=== PATIENT | female | born 1960 | race Caucasian/White ===

== ENCOUNTER → 2018-01-29 06:58 | Outpatient (CLI) | payer BC, SELFPAY ==
--- NOTE | 2018-01-29 | DI.US.S_ITS ---
PROCEDURE: US ABDOMEN COMPLETE INDICATIONS: ELEVATED LIVER ENZYMES TECHNIQUE: Real-time scanning was performed of the abdominal and retroperitoneal organs, with image documentation. COMPARISON: [facility], CT, ABDOMEN/PELVIS WITH CONTRAST, 11/24/2010, 9:41. FINDINGS: Liver: Liver is mildly enlarged in craniocaudad length of 20.2 cm, and homogeneous in echotexture diffusely mildly hyperechoic consistent with fatty infiltration. Gallbladder: The gallbladder contains several nonobstructive stones, and the gallbladder wall is normal in thickness. The gallstones measure approximately 1.1 cm in maximal dimension. There is no tenderness to sonographic palpation. Biliary ducts: Intrahepatic bile ducts are non-dilated. Extrahepatic bile duct caliber measures 5.2 mm. Normal is 6-7 mm or less in diameter, or 10 mm or less post-cholecystectomy. Pancreas: Visualized portions of the pancreas are sonographically normal. Spleen: Spleen is normal in size and homogeneous in echotexture. Kidneys: Kidneys are normal in size and echotexture. Right kidney measures 11.8 cm long; left kidney measures 10.7 cm long. No hydronephrosis or nephrolithiasis. No solid masses. There is a simple appearing 1.4 cm simple left mid renal cortical cyst Aorta: Visualized aorta is normal in caliber at less than 3 cm. Iliacs: Proximal common iliac arteries are normal in caliber at less than 2.5 cm. IVC: Intrahepatic inferior vena cava is patent. Miscellaneous: No free abdominal fluid. IMPRESSION: Fatty infiltration within the liver is mild and there is mild hepatomegaly but no mass lesion is found through the liver parenchyma and the gallbladder and bile ducts appear normal. Dictated by: Jose Aburto M.D. on 01/29/2018 at 9:07 Approved by: Jose Aburto M.D. on 01/29/2018 at 9:12
== END ==
PROVIDERS: PCP Family Medicine; Visit Provider Family Medicine
DX: R74.8 Abnormal levels of other serum enzymes (principal); K76.0 Fatty (change of) liver, not elsewhere classified
CPT/HCPCS: 76700

== ENCOUNTER 2018-05-09 15:44 | Emergency (ER) | payer OTHER, BC, SELFPAY ==
[2018-05-09 15:47] VITALS: BP 134/85; PULSE 77; RESP 16; TEMP 36.4; O2SAT 100; BMI 37.8
--- NOTE | 2018-05-09 16:23 | ED_ITS ---
HPI - Fall <Nadia Beltran PA-C - Last Filed: 05/09/18 21:59> General Chief Complaint: Fall Stated Complaint: Fall, cut on face Time Seen by Provider: 05/09/18 16:27 Source: patient Mode of arrival: ambulatory Limitations: no limitations History of Present Illness HPI Narrative: This 58-year-old female was at work when she tripped and fell over a laptop cord and cut the upper part of her nose on the edge of a plastic container. She states that she scraped her left pinky finger and bumped her left knee. She states that she did not hurt her head, no LOC, vision change, nausea or vomiting. She got up right away and has been able to walk on her knee without any problem. She thought she might need stitches due to the facial wound. She states her last tetanus was about 3 years ago. Related Data Home Medications Medication Instructions Recorded Confirmed CA PANTOTHENATE/FOLIC ACID/VIT 1 tab PO QDAY #0 02/24/12 (MULTIVITAMIN) CHOLECALCIFEROL (VITAMIN D3) 2,000 iu PO QDAY #0 02/24/12 (Vitamin D) KRILL OIL (#[facility] KRILL OIL) 500 mg PO QDAY #0 02/24/12 atorvastatin [Lipitor] 10 mg PO BEDTIME #0 02/24/12 05/09/18 clonidine HCl 0.1 mg PO QDAY #0 02/24/12 allopurinol 200 mg PO BID 05/09/18 05/09/18 hydrochlorothiazide 12.5 mg PO DAILY 05/09/18 05/09/18 lisinopril 40 mg PO DAILY 05/09/18 05/09/18 metformin 500 mg PO BID 05/09/18 05/09/18 potassium chloride 10 meq PO BID 05/09/18 05/09/18 sertraline 50 mg PO DAILY 05/09/18 05/09/18 Allergies Allergy/AdvReac Type Severity Reaction Status Date / Time Penicillins Allergy Mild RASH Unverified 08/07/17 13:11 Sulfa (Sulfonamide Allergy Mild RASH Unverified 08/07/17 13:11 Antibiotics) Review of Systems <Nadia Beltran PA-C - Last Filed: 05/09/18 21:59> Review of Systems ROS Unobtainable: All systems reviewed & are unremarkable except as noted in HPI and below Exam <SERA Smith Last Filed: 05/09/18 21:59> Narrative Exam Narrative: GENERAL APPEARANCE: Patient sitting comfortably, in no distress. HEENT: No facial or scalp hematoma, no bony abnormality palpable or visible, PERRL, EOMI, normal oropharynx, no sinus TTP NECK: Supple LUNGS: Clear to auscultation bilaterally. HEART: Rate and rhythm regular without murmur, normal S1 and S2, no S3 or S4. NEUROLOGIC: Alert and oriented, normal speech, and coordination. MUSCULOSKELETAL: Full Csp AROM, no tenderness. No tenderness over the left knee , full range of motion. DERMATOLOGIC: Over the left superior border of the nasal bridge medial to the brow line there is a 1.5 cm laceration 2 mm deep with a 1 mm gap. Inferior to this on the left distal bridge there is a 2 mm superficial laceration. There is a small abrasion with the skin barely broken on the left pinky finger Initial Vital Signs Initial Vital Signs: Vital Signs Temperature 97.5 F L 05/09/18 15:47 Pulse Rate 77 05/09/18 15:47 Respiratory Rate 16 05/09/18 15:47 Blood Pressure 134/85 05/09/18 15:47 Pulse Oximetry 100 05/09/18 15:47 <Barby Robins DO - Last Filed: 05/10/18 08:57> Initial Vital Signs Initial Vital Signs: Vital Signs Temperature 97.5 F L 05/09/18 15:47 Pulse Rate 77 05/09/18 15:47 Respiratory Rate 16 05/09/18 15:47 Blood Pressure 134/85 05/09/18 15:47 Pulse Oximetry 100 05/09/18 15:47 Procedures <SERA Smith Last Filed: 05/09/18 21:59> Laceration Repair Laceration 1: Site: face Size (cm): 1.5 Description: linear and clean Depth: simple, single layer Local Anesthetic: lidocaine 1% and with epi Amount of anesthesia used (mL): 2 Pre-repair: wound explored and deep structures intact Skin layer closed with: nylon Size (cm): 6-0 Number of sutures: 4 Technique: simple, interrupted Course <SERA Smith Last Filed: 05/09/18 21:59> Vital Signs - 8 hr 05/09/18 15:47 05/09/18 17:44 Temperature 97.5 F L Pulse Rate 77 76 Respiratory Rate 16 18 Blood Pressure 134/85 125/57 L Pulse Oximetry 100 96 <Barby Robins DO - Last Filed: 05/10/18 08:57> Vital Signs - 8 hr 05/09/18 15:47 05/09/18 17:44 Temperature 97.5 F L Pulse Rate 77 76 Respiratory Rate 16 18 Blood Pressure 134/85 125/57 L Pulse Oximetry 100 96 Discharge Plan Departure Patient Disposition: Home Clinical Impression: Facial laceration, Contusion of multiple sites Discharge Date/Time: 05/09/18 17:45 Interventions: ED Discharge Assessment Last Done: 05/09/18 17:44 Instructions: DI for Laceration Repair Activity Restrictions/Additional Instructions: Keep the wound clean and dry, you can rinse quickly if you wish. Do not immerse in water. Monitor for signs of infection such as increased redness, swelling, or draining pus, or new fever and return here or see your PCP right away if any. If the sutures get crusty, you can apply a little antibiotic ointment or Vaseline. The should be ready to remove in about 5 days, please schedule with your PCP next week for this. Prescriptions: No Action clonidine HCl 0.1 MG tablet 0.1 mg PO QDAY Qty: 0 RF: 0 atorvastatin [Lipitor] 10 MG tablet 10 mg PO BEDTIME Qty: 0 RF: 0 CA PANTOTHENATE/FOLIC ACID/VIT (MULTIVITAMIN) 1 tab PO QDAY Qty: 0 RF: 0 CHOLECALCIFEROL (VITAMIN D3) (Vitamin D) 2,000 iu PO QDAY Qty: 0 RF: 0 KRILL OIL (#[facility] KRILL OIL) 500 mg PO QDAY Qty: 0 RF: 0 metformin 500 mg tablet 500 mg PO BID RF: 0 potassium chloride 10 mEq tablet extended release 10 meq PO BID RF: 0 allopurinol 100 mg tablet 200 mg PO BID RF: 0 hydrochlorothiazide 12.5 mg capsule 12.5 mg PO DAILY RF: 0 lisinopril 40 mg tablet 40 mg PO DAILY RF: 0 sertraline 50 mg tablet 50 mg PO DAILY RF: 0 Referrals: Nyla Lemus MD [Primary Care Provider] - <Barby Robins DO - Last Filed: 05/10/18 08:57> Cosign ED Attending Ayakaature Attestation: I was immediately available in the department for consultation. Documentation has been reviewed. I agree with assessment and plan.
--- NOTE | 2018-05-09 17:10 | PC.NURSE ---
while at work (school), tripped over a cord, approx 230, bridge of nose,. hit plastic bin, denies loc, denies neck or back pain, obtained laceration bridge of nose and with swelling, airway patent, no resp distress, denies visual changes. also obtained left lateral hand swelling and with superficial abrasions. full range of motion. tetanus up to date.
[2018-05-09 17:44] VITALS: BP 125/57; PULSE 76; RESP 18; O2SAT 96
== END 2018-05-09 17:45 | disposition home or self-care (01) ==
PROVIDERS: Emergency Provider Internal Medicine; PCP Family Medicine
DX: S01.81XA Laceration without foreign body of other part of head, initial encounter (principal); W01.0XXA Fall on same level from slipping, tripping and stumbling without subsequent striking against object, initial encounter; Y99.0 Civilian activity done for income or pay
CPT/HCPCS: 12001; 99282

== ENCOUNTER → 2019-04-03 10:10 | Outpatient (CLI) | payer BC, SELFPAY | PROVIDERS: PCP Family Medicine; Visit Provider Internal Medicine Endocrinology, Diabetes & Metabolism | DX: M85.852 Other specified disorders of bone density and structure, left thigh (principal); Z78.0 Asymptomatic menopausal state; E21.0 Primary hyperparathyroidism | CPT/HCPCS: 77080; 77081 ==

== ENCOUNTER → 2020-04-11 10:16 | Outpatient (CLI) | payer BC, SELFPAY | PROVIDERS: PCP Physician Assistant Medical; Referring Provider Family Medicine; Visit Provider Internal Medicine Endocrinology, Diabetes & Metabolism | DX: M85.852 Other specified disorders of bone density and structure, left thigh (principal); Z78.0 Asymptomatic menopausal state; E21.0 Primary hyperparathyroidism; E11.9 Type 2 diabetes mellitus without complications | CPT/HCPCS: 77080; 77081 ==

== ENCOUNTER 2021-04-07 17:41 | Inpatient (IN) | payer OTHER, SELFPAY ==
[2021-04-07] VITALS (44 sets, daily range): BP systolic 152–217; BP diastolic 70–95; PULSE 75–97; RESP 21–43; TEMP 36.7–36.9; O2SAT 70–99; BMI 37.5; BMI 36.7
--- NOTE | 2021-04-07 17:59 | DI.RAD.S_ITS ---
PROCEDURE: XR CHEST 1V INDICATIONS: COVID and hypoxic TECHNIQUE: One view of the chest was acquired. COMPARISON: [facility], , CHEST 2 VIEW, 11/24/2010, 9:22. FINDINGS: Surgical changes and devices: None. Lungs and pleura: Generalized interstitial infiltrates are seen. There are superimposed alveolar type infiltrates seen involving the right upper lobe, the right medial inferior lung, and the left lower lung. Mediastinum: Mediastinal contours appear normal. Heart size is normal. Bones and chest wall: No suspicious bony lesions. Age-appropriate bony degenerative changes are seen. Overlying soft tissues appear unremarkable. IMPRESSION: Patchy bilateral interstitial infiltrates are seen, with superimposed more confluent alveolar type infiltrates, which are consistent with the known clinical history of COVID pneumonia. Dictated by: Kulwant South M.D. on 04/07/2021 at 17:27 Approved by: Kulwant South M.D. on 04/07/2021 at 17:28
[2021-04-07 18:21] LABS: Add Manual Diff / Slide Review NO; Basophils Absolute Auto 100 /uL (0-100); Basophils Percent Auto 0.9 % (0-2); Eosinophils Absolute Auto 200 /uL (0-450); Eosinophils Percent Auto 1.3 % (2-4); Hematocrit 40.3 % (36-46); Hemoglobin 13.3 g/dL (12.0-16.0); Lymphocytes Absolute Auto 2800 /uL (1100-4500); Mean Corpuscular Hemoglobin 29.4 PG (26-34); Mean Corpuscular Volume 89.2 fL (80-100); Monocytes Absolute Auto 600 /uL (0-900); Monocytes Percent Auto 4.2 % (3-14); Neutrophils Absolute Auto 9600 /uL (1500-7000); Neutrophils Percent Auto 72.6 % (50-75); Platelet Count 430 X10^3/uL (150-400); Red Blood Cell Count 4.52 X10^6/uL (4.0-5.2); Red Cell Distribution Width 14.9 % (11.6-14.8); White Blood Cell Count 13.2 X10^3/uL (4.5-11.0)
--- NOTE | 2021-04-07 18:21 | ED.GENADULT ---
HPI - General Adult General Chief complaint: Shortness of Breath/Dyspnea Stated complaint: difficulty breathing Time Seen by Provider: 04/07/21 17:58 Source: patient Mode of arrival: Wheelchair History of Present Illness HPI narrative: Patient is a 61-year-old female. History of high blood pressure [id number] diabetes. Has been vaccinated with the Pfizer vaccine for COVID-19. She has received 2 immunizations with the 2nd 1 being several months ago. She has not had the booster vaccine. Approximately weeks ago she started having symptoms to include headache and diarrhea and generally not feeling very well. No respiratory distress. She was subsequently tested and was positive for COVID-19. She did receive an infusion of the monoclonal antibody. Since that infusion the headache and diarrhea and generalized malaise to continued into about 4 days ago when she started having increasing respiratory distress. No chest pain. Today symptoms got to the point where she needed to come into the emergency department for evaluation. Related Data Home Medications Medication Instructions Recorded Confirmed atorvastatin 10 mg tablet (Lipitor) 10 mg PO BEDTIME #0 02/24/12 05/09/18 clonidine HCl 0.1 mg tablet 0.1 mg PO QDAY #0 02/24/12 hydrochlorothiazide 12.5 mg capsule 12.5 mg PO DAILY 05/09/18 05/09/18 lisinopril 40 mg tablet 40 mg PO DAILY 05/09/18 04/07/21 potassium chloride 10 mEq 10 meq PO BID 05/09/18 05/09/18 tablet,extended release sertraline 50 mg tablet 50 mg PO DAILY 05/09/18 04/07/21 albuterol sulfate 90 mcg/actuation 1 - 2 puff INHALATION Q6HR PRN 04/07/21 04/07/21 aerosol inhaler allopurinol 300 mg tablet 300 mg PO DAILY 04/07/21 04/07/21 glimepiride 2 mg tablet 2 mg PO DAILY 04/07/21 04/07/21 Allergies Allergy/AdvReac Type Severity Reaction Status Date / Time Penicillins Allergy Mild RASH Verified 04/07/21 17:46 Sulfa (Sulfonamide Allergy Mild RASH Verified 04/07/21 17:46 Antibiotics) Review of Systems Constitutional Constitutional: Reports fever(s) Eyes Eyes: Reports system reviewed and no additional complaints, except as documented ENT Ears, Nose, Mouth, and Throat: Reports system reviewed and no additional complaints, except as documented Cardiovascular Cardiovascular: Reports as per HPI and Reports system reviewed and no additional complaints, except as documented Respiratory Respiratory: Reports as per HPI and Reports system reviewed and no additional complaints, except as documented Gastrointestinal Gastrointestinal: Reports as per HPI and Reports system reviewed and no additional complaints, except as documented Genitourinary Genitourinary: Reports system reviewed and no additional complaints, except as documented Musculoskeletal Musculoskeletal: Reports system reviewed and no additional complaints, except as documented Integumentary/Breasts Skin/Breast: Reports system reviewed and no additional complaints, except as documented Neurologic Neurologic: Reports system reviewed and no additional complaints, except as documented Endocrine Endocrine: Reports system reviewed and no additional complaints, except as documented Hematologic/Lymphatic Hematologic/Lymphatic: Reports system reviewed and no additional complaints, except as documented On Anticoagulants: No Allergic/Immunologic Allergic/Immunologic: Reports system reviewed and no additional complaints, except as documented Patient History Medical History Depression Diabetes Essential hypertension Gout History of colon cancer HTN (hypertension) Hyperlipidemia Non-insulin dependent type 2 diabetes mellitus Obesity (BMI 30-39.9) Surgical History Status post partial resection of colon Status post surgery (03/21/10) Family History Mother Cancer Father COPD (chronic obstructive pulmonary disease) Social History household members: spouse Smoking Status: Never smoker Smoking Status: Never smoker alcohol intake frequency: holidays/special occasions only Substance Use Type: does not use Exam Initial Vital Signs Initial Vital Signs: Vital Signs Temperature 98.5 F 04/07/21 17:46 Pulse Rate 90 04/07/21 17:46 Respiratory Rate 33 H 04/07/21 17:46 Blood Pressure 197/93 H 04/07/21 17:46 Pulse Oximetry 70 L 04/07/21 17:46 Const General: cooperative, well developed, well groomed and ill appearing Limitations: mental status not altered HENMT Head: normal to inspection and normocephalic Eyes General: appearance normal, both eyes and all related structures Resp Effort & Inspection: labored, respiratory distress and tachypneic Auscultation: clear to auscultation bilaterally Cardio Rate: regular rate Rhythm: regular rhythm GI Inspection: non-distended Palpation: soft Skin General: no rashes or lesions noted Neuro General: patient alert, patient awake and moves all extremities Extrem General: normal to inspection and No edema Psych Appearance: grossly normal and well kempt Scores GCS [place] coma scale eye opening: Spontaneous [place] coma scale verbal response: Orientated [place] coma scale motor response: Obey commands Jose [place] coma scale total score: 15 Course Orders Ordered: ED Orders 04/07/21 16:05 Blood Culture Stat 04/07/21 17:55 COVID19 -Nasal swab/Pre-Proc Stat 04/07/21 17:59 XR chest 1V Stat EKG-12 Lead Stat 04/07/21 18:00 C-Reactive Protein Quant Stat Complete Blood Count AUTO DIFF Stat Comprehensive Metabolic Panel Stat D Dimer Stat Ferritin Stat Lactate (Lactic Acid) Stat Lactate Dehydrogenase Stat NT-proBNP (BNP-Adult 18+) Stat Procalcitonin Stat Troponin & CK Cardiac Panel Stat High flow/High humidity nasal STAT 04/07/21 18:14 Respiratory Panel (Film Array) Stat 04/07/21 19:21 CT angio chest PE protocol Stat 04/07/21 19:45 ABG [Arterial Blood Gas] Stat Acetaminophen (Acetaminophen 325 Mg Tablet) 650 mg PO Q6HR PRN PRN Reason: Fever/Mild Pain (1-3) Hydrocodone Bitart/Acetaminophen (Hydrocodone/Acet 5/325 Tablet) 2 tab PO Q4HR PRN PRN Reason: Pain, Moderate (4-6) Albuterol (Albuterol 2.5 Mg/3 Ml Neb (Adult)) 2.5 mg INH Q6HR PRN PRN Reason: cough, shortness of breath Albuterol/Ipratropium (Albuterol/Ipratropium 3 Ml Ampul) 3 ml INH RTQ4HR PRN PRN Reason: Shortness Of Breath Allopurinol (Allopurinol 300 Mg Tablet) 300 mg PO DAILY [facility] Atorvastatin Calcium (Atorvastatin 20 Mg Tablet) 10 mg PO BEDTIME [facility] Last Admin: 04/07/21 22:02 Dose: 10 mg Documented by: [email or web address] Dexamethasone (Dexamethasone 10 Mg/Ml Vial) 6 mg IV DAILY [facility] Dextrose (Dextrose 50 % In Water 25 Gm/50 Ml Syringe) 25 gm IV PRN PRN PRN Reason: Hypoglycemia Enoxaparin Sodium (Enoxaparin 40 Mg/0.4 Ml Syringe) 40 mg SUBCUT Q12H [facility] Sodium Chloride (Normal Saline 0.9%) 1,000 mls @ 100 mls/hr IV CONT [facility] Last Admin: 04/07/21 23:25 Dose: 100 mls/hr Documented by: Infusion: 04/07/21 23:25 Dose: 100 mls/hr Documented by: [email or web address] Admin: 04/07/21 18:27 Dose: 100 mls/hr Documented by: DWAYNE Remdesivir 100 mg/ Sodium (Chloride) 250 mls @ 250 mls/hr IV DAILY [facility] Stop: 04/16/21 09:59 Levofloxacin (Levaquin) 750 mg in 150 mls @ 100 mls/hr IV Q24H [facility] Stop: 04/12/21 22:14 Last Admin: 04/07/21 23:24 Dose: 100 mls/hr Documented by: BRANDI Insulin Human Lispro (Insulin Lispro 100 Unit/Ml 3ml Vial) 0 unit SUBCUT [facility]; Protocol Last Admin: 04/07/21 22:03 Dose: 100 unit Documented by: BRANDI Cosigned by: RENATA Lisinopril (Lisinopril 20 Mg Tablet) 40 mg PO DAILY [facility] Lorazepam (Lorazepam 0.5 Mg Tablet) 0.5 mg PO Q4HR PRN PRN Reason: Anxiety Naloxone HCl (Naloxone 0.4 Mg/Ml Vial) 0.2 mg IV Q2MIN PRN PRN Reason: Opiate Reversal Ondansetron HCl (Ondansetron 4 Mg/2 Ml Inj) 4 mg IV Q8HR PRN PRN Reason: Nausea And Vomiting Sertraline HCl (Sertraline 50 Mg Tablet) 50 mg PO DAILY [facility] Discontinued Medications Dexamethasone (Dexamethasone 10 Mg/Ml Vial) 6 mg IV NOW ONE Stop: 04/07/21 18:11 Last Admin: 04/07/21 18:27 Dose: 6 mg Documented by: DWAYNE Enoxaparin Sodium (Enoxaparin 40 Mg/0.4 Ml Syringe) 40 mg SUBCUT Q12H [facility] Heparin Sodium (Porcine) (Heparin 5,000 Unit/Ml Vial) 5,000 unit SUBCUT BID [facility] Last Admin: 04/07/21 22:03 Dose: 5,000 unit Documented by: [email or web address] Hydrochlorothiazide (Hydrochlorothiazide 25 Mg Tablet) 12.5 mg PO DAILY [facility] Remdesivir 200 mg/ Sodium (Chloride) 250 mls @ 250 mls/hr IV NOW ONE Stop: 04/07/21 19:09 Last Infusion: 04/07/21 23:24 Dose: 0 mls/hr Documented by: [email or web address] Admin: 04/07/21 22:01 Dose: 250 mls/hr Documented by: [email or web address] Azithromycin 500 mg/ Dextrose 250 mls @ 250 mls/hr IV NOW ONE Stop: 04/07/21 18:27 Last Infusion: 04/07/21 19:57 Dose: 0 mls/hr Documented by: Admin: 04/07/21 18:30 Dose: 250 mls/hr Documented by: DWAYNE Meropenem 1 gm/ Sodium (Chloride) 100 mls @ 200 mls/hr IV Q8H [facility] Vancomycin HCl/Dextrose (Vancomycin) 2,000 mg in 400 mls @ 200 mls/hr IV Q24H [facility] Lisinopril (Lisinopril 20 Mg Tablet) 40 mg PO NOW ONE Stop: 04/07/21 21:31 Last Admin: 04/07/21 22:02 Dose: 40 mg Documented by: [email or web address] Lorazepam (Lorazepam 0.5 Mg Tablet) 0.5 mg PO NOW ONE Stop: 04/07/21 21:32 Last Admin: 04/07/21 22:02 Dose: 0.5 mg Documented by: [email or web address] Prednisone (Prednisone 20 Mg Tablet) 40 mg PO DAILY [facility] Stop: 04/13/21 08:59 Vancomycin HCl (Vancomycin Per Pharmacy) 1 request MISC NOW ONE Stop: 04/07/21 22:08 Vital Signs Vital signs: Vital Signs - 8 hr 04/07/21 17:46 04/07/21 17:54 04/07/21 17:55 Temperature 98.5 F Pulse Rate 90 97 H 95 H Respiratory Rate 33 H Blood Pressure 197/93 H 217/95 H Pulse Oximetry 70 L 73 L 81 L 04/07/21 18:00 04/07/21 18:01 04/07/21 18:10 Temperature Pulse Rate 86 88 91 H Respiratory Rate 36 H 39 H 35 H Blood Pressure 165/80 H 152/82 H Pulse Oximetry 88 L 88 L 86 L 04/07/21 18:15 04/07/21 18:20 04/07/21 18:30 Temperature Pulse Rate 92 H 91 H 89 Respiratory Rate 43 H Blood Pressure 178/86 H 179/85 H Pulse Oximetry 86 L 88 L 87 L 04/07/21 18:40 04/07/21 18:45 04/07/21 18:48 Temperature Pulse Rate 83 82 91 H Respiratory Rate 32 H Blood Pressure 180/84 H 152/82 H Pulse Oximetry 92 91 91 04/07/21 18:51 04/07/21 19:00 04/07/21 19:10 Temperature Pulse Rate 82 82 82 Respiratory Rate Blood Pressure 169/75 H 165/74 H 161/74 H Pulse Oximetry 92 93 93 04/07/21 19:15 04/07/21 19:20 04/07/21 19:30 Temperature Pulse Rate 80 81 80 Respiratory Rate Blood Pressure 162/75 H 156/74 H Pulse Oximetry 92 92 92 Medical Decision Making Medical Records Medical records reviewed: Yes I reviewed the patient's medical records. Lab Data Lab results reviewed: Yes I reviewed the patient's lab results. Result diagrams: 04/07/21 18:00 04/07/21 18:00 Labs: Lab Results 04/07/21 04/07/21 04/07/21 Range/Units 16:00 16:00 16:00 WBC (4.5-11.0) X10^3/uL RBC (4.0-5.2) X10^6/uL Hgb (12.0-16.0) g/dL Hct (36-46) % MCV (80-100) fL MCH (26-34) PG MCHC (30-36) % RDW (11.6-14.8) % Plt Count (150-400) X10^3/uL Neut % (Auto) (50-75) % Lymph % (Auto) (25-40) % [place] % (Auto) (3-14) % Eos % (Auto) (2-4) % Baso % (Auto) (0-2) % Neut # (Auto) (5945-1640) /uL Lymph # (Auto) (1465-8975) /uL [place] # (Auto) (0-900) /uL Eos # (Auto) (0-450) /uL Baso # (Auto) (0-100) /uL ESR 54 H (0-20) MM/HR D-Dimer (<230) ng/mL Sodium (137-145) mmol/L Potassium (3.4-5.1) mmol/L Chloride (98-107) mmol/L Carbon Dioxide (22-32) mmol/L BUN (7-17) mg/dL Creatinine (0.52-1.04) mg/dL Estimated GFR (>60) mL/min BUN/Creatinine Ratio (6-22) Glucose (80-110) mg/dL Hemoglobin A1c 7.0 H (4.0-6.0) % Lactate (0.7-2.1) mmol/L Calcium (8.4-10.2) mg/dL Magnesium 1.9 (1.6-2.3) mg/dL Ferritin (11-264) ng/mL Total Bilirubin (0.2-1.3) mg/dL AST (14-36) IU/L ALT (<35) IU/L Alkaline Phosphatase (38-126) U/L Lactate Dehydrogenase (313-618) U/L Total Creatine Kinase (30-135) U/L CK-MB (CK-2) CK-MB (CK-2) Rel Index Troponin I (0.01-0.034) ng/mL C-Reactive Protein (<1.0) mg/dL NT-Pro-B Natriuret Pep (<125) pg/mL Total Protein (6.3-8.2) g/dL Albumin (3.5-5.0) g/dL Globulin (1.7-4.1) g/dL Albumin/Globulin Ratio (1.0-2.8) Procalcitonin (<0.5) ng/mL Chlamy pneumoniae PCR (Not Detect) Adenovirus (PCR) (Not Detect) B. pertussis DNA (PCR) (Not Detecte) B.parapertussis DNA PCR (Not Detecte) Coronavirus OC43 (PCR) (Not Detect) Coronavirus HKU1 (PCR) (Not Detect) Coronavirus 229E (PCR) (Not Detect) SARS-CoV-2 (PCR) (Negative) Coronavirus NL63 (PCR) (Not Detect) Human Metapneumovir PCR (Not Detect) Influenza Type A (PCR) (Not Detect) Influenza Type B (PCR) (Not Detect) M. pneumoniae (PCR) (Not Detect) Parainfluenza 1 (PCR) (Not Detect) Parainfluenza 2 (PCR) (Not Detect) Parainfluenza 3 (PCR) (Not Detect) Parainfluenza 4 (PCR) (Not Detect) RSV (PCR) (Not Detect) Entero/Rhino (PCR) (Not Detect) 04/07/21 04/07/21 04/07/21 Range/Units 17:55 18:00 18:00 WBC 13.2 H (4.5-11.0) X10^3/uL RBC 4.52 (4.0-5.2) X10^6/uL Hgb 13.3 (12.0-16.0) g/dL Hct 40.3 (36-46) % MCV 89.2 (80-100) fL MCH 29.4 (26-34) PG MCHC 33.0 (30-36) % RDW 14.9 H (11.6-14.8) % Plt Count 430 H (150-400) X10^3/uL Neut % (Auto) 72.6 (50-75) % Lymph % (Auto) 21.0 L (25-40) % [place] % (Auto) 4.2 (3-14) % Eos % (Auto) 1.3 L (2-4) % Baso % (Auto) 0.9 (0-2) % Neut # (Auto) 9600 H (6899-0654) /uL Lymph # (Auto) 2800 (5849-0639) /uL [place] # (Auto) 600 (0-900) /uL Eos # (Auto) 200 (0-450) /uL Baso # (Auto) 100 (0-100) /uL ESR (0-20) MM/HR D-Dimer 720 H (<230) ng/mL Sodium (137-145) mmol/L Potassium (3.4-5.1) mmol/L Chloride (98-107) mmol/L Carbon Dioxide (22-32) mmol/L BUN (7-17) mg/dL Creatinine (0.52-1.04) mg/dL Estimated GFR (>60) mL/min BUN/Creatinine Ratio (6-22) Glucose (80-110) mg/dL Hemoglobin A1c (4.0-6.0) % Lactate (0.7-2.1) mmol/L Calcium (8.4-10.2) mg/dL Magnesium (1.6-2.3) mg/dL Ferritin (11-264) ng/mL Total Bilirubin (0.2-1.3) mg/dL AST (14-36) IU/L ALT (<35) IU/L Alkaline Phosphatase (38-126) U/L Lactate Dehydrogenase (313-618) U/L Total Creatine Kinase (30-135) U/L CK-MB (CK-2) CK-MB (CK-2) Rel Index Troponin I (0.01-0.034) ng/mL C-Reactive Protein (<1.0) mg/dL NT-Pro-B Natriuret Pep (<125) pg/mL Total Protein (6.3-8.2) g/dL Albumin (3.5-5.0) g/dL Globulin (1.7-4.1) g/dL Albumin/Globulin Ratio (1.0-2.8) Procalcitonin (<0.5) ng/mL Chlamy pneumoniae PCR (Not Detect) Adenovirus (PCR) (Not Detect) B. pertussis DNA (PCR) (Not Detecte) B.parapertussis DNA PCR (Not Detecte) Coronavirus OC43 (PCR) (Not Detect) Coronavirus HKU1 (PCR) (Not Detect) Coronavirus 229E (PCR) (Not Detect) SARS-CoV-2 (PCR) Negative (Negative) Coronavirus NL63 (PCR) (Not Detect) Human Metapneumovir PCR (Not Detect) Influenza Type A (PCR) (Not Detect) Influenza Type B (PCR) (Not Detect) M. pneumoniae (PCR) (Not Detect) Parainfluenza 1 (PCR) (Not Detect) Parainfluenza 2 (PCR) (Not Detect) Parainfluenza 3 (PCR) (Not Detect) Parainfluenza 4 (PCR) (Not Detect) RSV (PCR) (Not Detect) Entero/Rhino (PCR) (Not Detect) 04/07/21 04/07/21 04/07/21 Range/Units 18:00 18:00 18:00 WBC (4.5-11.0) X10^3/uL RBC (4.0-5.2) X10^6/uL Hgb (12.0-16.0) g/dL Hct (36-46) % MCV (80-100) fL MCH (26-34) PG MCHC (30-36) % RDW (11.6-14.8) % Plt Count (150-400) X10^3/uL Neut % (Auto) (50-75) % Lymph % (Auto) (25-40) % [place] % (Auto) (3-14) % Eos % (Auto) (2-4) % Baso % (Auto) (0-2) % Neut # (Auto) (4335-1517) /uL Lymph # (Auto) (3604-7226) /uL [place] # (Auto) (0-900) /uL Eos # (Auto) (0-450) /uL Baso # (Auto) (0-100) /uL ESR (0-20) MM/HR D-Dimer (<230) ng/mL Sodium 140 (137-145) mmol/L Potassium 3.9 (3.4-5.1) mmol/L Chloride 106 (98-107) mmol/L Carbon Dioxide 24 (22-32) mmol/L BUN 18 H (7-17) mg/dL Creatinine 0.94 (0.52-1.04) mg/dL Estimated GFR > 60.0 (>60) mL/min BUN/Creatinine Ratio 19.1 (6-22) Glucose 135 H (80-110) mg/dL Hemoglobin A1c (4.0-6.0) % Lactate 1.9 (0.7-2.1) mmol/L Calcium 10.7 H (8.4-10.2) mg/dL Magnesium (1.6-2.3) mg/dL Ferritin 140 (11-264) ng/mL Total Bilirubin 0.7 (0.2-1.3) mg/dL AST 35 (14-36) IU/L ALT 22 (<35) IU/L Alkaline Phosphatase 302 H (38-126) U/L Lactate Dehydrogenase 805 H (313-618) U/L Total Creatine Kinase 29 L (30-135) U/L CK-MB (CK-2) TNP CK-MB (CK-2) Rel Index TNP Troponin I < 0.012 (0.01-0.034) ng/mL C-Reactive Protein 14.0 H (<1.0) mg/dL NT-Pro-B Natriuret Pep 414 H (<125) pg/mL Total Protein 7.8 (6.3-8.2) g/dL Albumin 3.8 (3.5-5.0) g/dL Globulin 4.0 (1.7-4.1) g/dL Albumin/Globulin Ratio 1.0 (1.0-2.8) Procalcitonin 0.50 (<0.5) ng/mL Chlamy pneumoniae PCR (Not Detect) Adenovirus (PCR) (Not Detect) B. pertussis DNA (PCR) (Not Detecte) B.parapertussis DNA PCR (Not Detecte) Coronavirus OC43 (PCR) (Not Detect) Coronavirus HKU1 (PCR) (Not Detect) Coronavirus 229E (PCR) (Not Detect) SARS-CoV-2 (PCR) (Negative) Coronavirus NL63 (PCR) (Not Detect) Human Metapneumovir PCR (Not Detect) Influenza Type A (PCR) (Not Detect) Influenza Type B (PCR) (Not Detect) M. pneumoniae (PCR) (Not Detect) Parainfluenza 1 (PCR) (Not Detect) Parainfluenza 2 (PCR) (Not Detect) Parainfluenza 3 (PCR) (Not Detect) Parainfluenza 4 (PCR) (Not Detect) RSV (PCR) (Not Detect) Entero/Rhino (PCR) (Not Detect) 04/07/21 Range/Units 18:14 WBC (4.5-11.0) X10^3/uL RBC (4.0-5.2) X10^6/uL Hgb (12.0-16.0) g/dL Hct (36-46) % MCV (80-100) fL MCH (26-34) PG MCHC (30-36) % RDW (11.6-14.8) % Plt Count (150-400) X10^3/uL Neut % (Auto) (50-75) % Lymph % (Auto) (25-40) % [place] % (Auto) (3-14) % Eos % (Auto) (2-4) % Baso % (Auto) (0-2) % Neut # (Auto) (1443-7950) /uL Lymph # (Auto) (2326-0671) /uL [place] # (Auto) (0-900) /uL Eos # (Auto) (0-450) /uL Baso # (Auto) (0-100) /uL ESR (0-20) MM/HR D-Dimer (<230) ng/mL Sodium (137-145) mmol/L Potassium (3.4-5.1) mmol/L Chloride (98-107) mmol/L Carbon Dioxide (22-32) mmol/L BUN (7-17) mg/dL Creatinine (0.52-1.04) mg/dL Estimated GFR (>60) mL/min BUN/Creatinine Ratio (6-22) Glucose (80-110) mg/dL Hemoglobin A1c (4.0-6.0) % Lactate (0.7-2.1) mmol/L Calcium (8.4-10.2) mg/dL Magnesium (1.6-2.3) mg/dL Ferritin (11-264) ng/mL Total Bilirubin (0.2-1.3) mg/dL AST (14-36) IU/L ALT (<35) IU/L Alkaline Phosphatase (38-126) U/L Lactate Dehydrogenase (313-618) U/L Total Creatine Kinase (30-135) U/L CK-MB (CK-2) CK-MB (CK-2) Rel Index Troponin I (0.01-0.034) ng/mL C-Reactive Protein (<1.0) mg/dL NT-Pro-B Natriuret Pep (<125) pg/mL Total Protein (6.3-8.2) g/dL Albumin (3.5-5.0) g/dL Globulin (1.7-4.1) g/dL Albumin/Globulin Ratio (1.0-2.8) Procalcitonin (<0.5) ng/mL Chlamy pneumoniae PCR Not detected (Not Detect) Adenovirus (PCR) Not detected (Not Detect) B. pertussis DNA (PCR) Not detected (Not Detecte) B.parapertussis DNA PCR Not detected (Not Detecte) Coronavirus OC43 (PCR) Not detected (Not Detect) Coronavirus HKU1 (PCR) Not detected (Not Detect) Coronavirus 229E (PCR) Not detected (Not Detect) SARS-CoV-2 (PCR) Not detected (Negative) Coronavirus NL63 (PCR) Not detected (Not Detect) Human Metapneumovir PCR Not detected (Not Detect) Influenza Type A (PCR) Not detected (Not Detect) Influenza Type B (PCR) Not detected (Not Detect) M. pneumoniae (PCR) Not detected (Not Detect) Parainfluenza 1 (PCR) Not detected (Not Detect) Parainfluenza 2 (PCR) Not detected (Not Detect) Parainfluenza 3 (PCR) Not detected (Not Detect) Parainfluenza 4 (PCR) Not detected (Not Detect) RSV (PCR) Not detected (Not Detect) Entero/Rhino (PCR) Not detected (Not Detect) Imaging Data Chest x-ray: Radiologist's Impression: [address] [address] XRay Report Signed Patient: Steffany Jovel MR#: [id number] : 1960 Acct:[id number] Age/Sex: 61 / F Date of Service: 04/07/21 Loc: ED Accession Number: [id number] ?? Procedure: XR chest 1V Ordering Provider: Pino Leach D.O. PROCEDURE:? XR CHEST 1V ? INDICATIONS:? COVID and hypoxic ? TECHNIQUE:? One view of the chest was acquired.? ? COMPARISON:? [facility], CHEST 2 VIEW, 11/24/2010, 9:22. ? FINDINGS:? ? Surgical changes and devices:? None.? ? Lungs and pleura:? Generalized interstitial infiltrates are seen.? There are superimposed alveolar type infiltrates seen involving the right upper lobe, the right medial inferior lung, and the left lower lung. ? Mediastinum:? Mediastinal contours appear normal.? Heart size is normal.? ? Bones and chest wall:? No suspicious bony lesions.? Age-appropriate bony degenerative changes are seen.? Overlying soft tissues appear unremarkable.? ? ? IMPRESSION:? Patchy bilateral interstitial infiltrates are seen, with superimposed more confluent alveolar type infiltrates, which are consistent with the known clinical history of COVID pneumonia.? ? ? Dictated by: Kulwant South M.D. on 04/07/2021 at 17:27 ? ? Approved by: Kulwant South M.D. on 04/07/2021 at 17:28? CT scan - chest: Radiologist's Impression: [address] [address] [address] Scan Report Signed Patient: Steffany Jovel MR#: [id number] : 1960 Acct:[id number] Age/Sex: 61 / F Date of Service: 04/07/21 Loc: ICU 226-1 Accession Number: [id number] ?? Procedure: CT angio chest PE protocol Ordering Provider: Pino Leach D.O. PROCEDURE:? CT ANGIO CHEST PE PROTOCOL ? INDICATIONS:? Chest pain, shortness of breath, tachycardia ? TECHNIQUE:? After the administration of intravenous contrast, 2 mm thick sections acquired from the pulmonary apices to the posterior costophrenic angles.? 3-dimensional maximum intensity projection (MIP) coronal and sagittal reformats were then acquired through the thorax.? For radiation dose reduction, the following was used:? automated exposure control, adjustment of mA and/or kV according to patient size.? ? COMPARISON:? None. ? FINDINGS:? Image quality:? Excellent.? ? Pulmonary arteries:? Pulmonary arteries are normal in size, and demonstrate no intraluminal filling defects to suggest central pulmonary embolism.? ? Lungs and pleura:? There are multifocal ground-glass and consolidative airspace opacities in both lungs.? Findings are consistent with infection including COVID-19 as provided in the clinical history.? There is also some mild interlobular septal thickening interstitial prominence.? No significant pleural abnormality. ? Mediastinum:? There is mild cardiomegaly.? There appears to be left ventricular hypertrophy, although this is not entirely definitive and could be artifactual due to image acquisition during systole.? There is a filling defect in the left atrium measuring approximately 3.6 x 3.2 centimeters maximum axial dimension.? This defect appears to be based upon the interatrial septum and slightly enhances, presumably representing a left atrial myxoma although there are other differential considerations.? No pericardial effusion.? Thoracic aorta unremarkable.? There are few mildly enlarged mediastinal lymph nodes which are likely reactive given the lung findings. ? Bones and chest wall:? No suspicious bony lesions.? Ribs and thoracic spine appear intact throughout.? Uniform thyroid gland attenuation.? No axillary or supraclavicular adenopathy.? ? Abdomen:? Tiny gallstones layering in the gallbladder dependently.? Left adrenal gland nodule which is low density and likely represents an adenoma. ? IMPRESSION: ? Patchy bilateral interstitial and airspace opacities which are likely infectious and would be consistent with the provided history of COVID-19. ? 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 ?Cardiology consultation recommended.? ? ? Dictated by: Cam Adams M.D. on 04/07/2021 at 21:27 ? ? Approved by: Cam Adams M.D. on 04/07/2021 at 21:34?? ECG Data Attestation: I personally reviewed and interpreted this ECG as follows: Interpretation: Sinus rhythm Ventricular rate 92 LVH Normal QRS Normal QTC No ST T wave changes MDM Narrative Medical decision making narrative: Patient arrived in respiratory distress. Was tachypneic and hypoxic to the mid to low 70s. She is placed on nasal cannula which improved her oxygen saturations to the high 80s. She states she felt much better with this. She denies any chest pain. No lower extremity swelling. No prior lung pathology. Chest x-ray is concerning for COVID pneumonia. Her rapid COVID and her respiratory COVID PCR both were negative however her clinical presentation is consistent with COVID. His CT scan of her chest is also consistent with this. She does have a leukocytosis. Given her presentation she was given azithromycin to cover for bacterial pneumonia. She is also given remdesivir and dexamethasone. She was placed on high-flow which improved her oxygen saturations as well. Patient does require admission to the hospital for her respiratory status. And discuss this with her and she expressed understanding and agreement. Discussed the case with LISETH Goncalves the [facility] hospital provider who will admit for further evaluation treatment as well. 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 These findings were related impedance in who will further workup these findings. Critical Care Time Critical Care Time Critical Care Time: Yes Total Critical Care Time: 35 Attestation: The high probability of a clinically significant, sudden or life threatening deterioration of the respiratory system(s) required my full and direct attention, intervention and personal management. The aggregate critical care time was 35 minutes. This time is in addition to time spent performing reported procedures but includes the following: [x] Data Review and interpretation [x] Patient assessment and monitoring of vital signs [x] Documentation [x] Medication orders and management Discharge Plan Departure Patient Disposition: Admitted As Inpatient Clinical Impression: COVID-19, Hypoxia Admit Date/Time: 04/07/21 19:39 Admit Provider: Dena Goncalves
[2021-04-07] MEDS: DEXAMETHASONE 10 MG/ML VIAL 6 MG IV (18:27)
[2021-04-07] MEDS: SODIUM CHLORIDE 0.9% 1,000 ML 100 ML IV ×2 (18:27→23:25)
[2021-04-07 18:30] LABS: D Dimer 720 ng/mL (<230)
[2021-04-07] MEDS: AZITHROMYCIN 500 MG in DEXTROSE 5% IN WATER 250 ML IV (18:30)
[2021-04-07 18:32] LABS: Lactate (Lactic Acid) 1.9 mmol/L (0.7-2.1)
[2021-04-07 18:33] LABS: Alanine Aminotransferase 22 IU/L (<35); Albumin 3.8 g/dL (3.5-5.0); Alkaline Phosphatase 302 U/L (38-126); Aspartate Aminotransferase 35 IU/L (14-36); BUN Creatinine Ratio 19.1 (6-22); Bilirubin Total 0.7 mg/dL (0.2-1.3); Blood Urea Nitrogen 18 mg/dL (7-17); Calcium 10.7 mg/dL (8.4-10.2); Carbon Dioxide 24 mmol/L (22-32); Chloride 106 mmol/L (98-107); Estimated Glomerular Filt Rate > 60.0 mL/min (>60); Glucose 135 mg/dL (80-110); HEMOLYSIS < 15 (0-50); Potassium 3.9 mmol/L (3.4-5.1); Sodium 140 mmol/L (137-145); Total Protein 7.8 g/dL (6.3-8.2)
[2021-04-07 18:35] LABS: COVID19 -Nasal RAPID Negative (Negative)
[2021-04-07 18:37] LABS: Creatine Kinase 29 U/L (30-135); Lactate Dehydrogenase 805 U/L (313-618)
[2021-04-07 18:45] LABS: NT-proBNP (BNP-Adult 18+) 414 pg/mL (<125); Troponin I < 0.012 ng/mL (0.01-0.034)
[2021-04-07 19:08] LABS: Ferritin 140 ng/mL (11-264)
--- NOTE | 2021-04-07 19:21 | DI.CT.S_ITS ---
PROCEDURE: CT ANGIO CHEST PE PROTOCOL INDICATIONS: Chest pain, shortness of breath, tachycardia TECHNIQUE: After the administration of intravenous contrast, 2 mm thick sections acquired from the pulmonary apices to the posterior costophrenic angles. 3-dimensional maximum intensity projection (MIP) coronal and sagittal reformats were then acquired through the thorax. For radiation dose reduction, the following was used: automated exposure control, adjustment of mA and/or kV according to patient size. COMPARISON: None. FINDINGS: Image quality: Excellent. Pulmonary arteries: Pulmonary arteries are normal in size, and demonstrate no intraluminal filling defects to suggest central pulmonary embolism. Lungs and pleura: There are multifocal ground-glass and consolidative airspace opacities in both lungs. Findings are consistent with infection including COVID-19 as provided in the clinical history. There is also some mild interlobular septal thickening interstitial prominence. No significant pleural abnormality. Mediastinum: There is mild cardiomegaly. There appears to be left ventricular hypertrophy, although this is not entirely definitive and could be artifactual due to image acquisition during systole. There is a filling defect in the left atrium measuring approximately 3.6 x 3.2 centimeters maximum axial dimension. This defect appears to be based upon the interatrial septum and slightly enhances, presumably representing a left atrial myxoma although there are other differential considerations. No pericardial effusion. Thoracic aorta unremarkable. There are few mildly enlarged mediastinal lymph nodes which are likely reactive given the lung findings. Bones and chest wall: No suspicious bony lesions. Ribs and thoracic spine appear intact throughout. Uniform thyroid gland attenuation. No axillary or supraclavicular adenopathy. Abdomen: Tiny gallstones layering in the gallbladder dependently. Left adrenal gland nodule which is low density and likely represents an adenoma. IMPRESSION: Patchy bilateral interstitial and airspace opacities which are likely infectious and would be consistent with the provided history of COVID-19. 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 Cardiology consultation recommended. Dictated by: Cam Adams M.D. on 04/07/2021 at 21:27 Approved by: Cam Adams M.D. on 04/07/2021 at 21:34
[2021-04-07 19:26] LABS: Adenovirus Not Detected (Not Detect); B. parapertussis Not Detected (Not Detecte); Bordetella pertussis Not Detected (Not Detecte); Chlamydophila pneumoniae Not Detected (Not Detect); Coronavirus 229E Not Detected (Not Detect); Coronavirus HKU1 Not Detected (Not Detect); Coronavirus NL 63 Not Detected (Not Detect); Coronavirus OC43 Not Detected (Not Detect); Human Metapneumovirus Not Detected (Not Detect); Human Rhinovirus/Enterovirus Not Detected (Not Detect); Influenza A Not Detected (Not Detect); Influenza B Not Detected (Not Detect); Mycoplasma pneumoniae Not Detected (Not Detect); Parainfluenza Virus 1 Not Detected (Not Detect); Parainfluenza Virus 2 Not Detected (Not Detect); Parainfluenza Virus 3 Not Detected (Not Detect); Parainfluenza Virus 4 Not Detected (Not Detect); Respiratory Syncytial Virus Not Detected (Not Detect); SARS- CoV-2 Not Detected (Not Detecte)
[2021-04-07 20:17] LABS: HCO3 ABG 24 mmol/L (22-26); Oxygen Saturation ABG 93 % (95-100); PCO2 ABG 30.2 mmHg (35-45); PO2 ABG 60 mmHg (80-100); TCO2 ABG 25 mmol/L (21-31)
[2021-04-07 20:18] LABS: Fractionated Inspired Oxygen 50
[2021-04-07 20:25] LABS: Magnesium 1.9 mg/dL (1.6-2.3)
[2021-04-07 20:40] LABS: Erythrocyte Sedimentation Rate 54 MM/HR (0-20)
--- NOTE | 2021-04-07 21:03 | PC.NURSE ---
Pt taken to CT 15 LPM NRB. then to room 226. Tolerated well.
[2021-04-07] MEDS: REMDESIVIR 200 MG in SODIUM CHLORIDE 0.9% 210 ML 250 ML IV (22:01)
[2021-04-07] MEDS: LORazepam 0.5 MG TABLET PO (22:02)
[2021-04-07] MEDS: ATORVASTATIN 20 MG TABLET 10 MG PO (22:02)
[2021-04-07] MEDS: lisinopriL 20 MG TABLET 40 MG PO (22:02)
[2021-04-07] MEDS: INSULIN LISPRO 100 UNIT/ML 3ML VIAL SUBCUT (22:03)
[2021-04-07] MEDS: HEPARIN 5,000 UNIT/ML VIAL 5000 UNIT SUBCUT (22:03)
--- NOTE | 2021-04-07 22:27 | P.HP_ITS ---
History of Present Illness History of Present Illness Date Patient Seen: 04/07/21 Time Patient Seen: 20:09 Chief complaint: difficulty breathing Narrative: Steffany Jovel is a 61 year olf female with a medical history of hypertension, hyperlipidemia, kow-uatkhdb-[id number] type 2 diabetes, depression, anxiety, gout, and obesity who presented to the ED in acute hypoxic respiratory distress following increasing shortness of breath over the previous 72 hours. Patient reports that she tested positive for COVID pneumonia on approximately 03/20/2021 patient was experiencing abdominal pain nausea vomiting and diarrhea. The patient has been fully vaccinated for COVID with [employer]. Patient underwent treatment with monoclonal antibodies on March 21, 2021. Her symptoms had slightly improved her did test positive on 03/25/2021 but has remained asymptomatic. Approximately 72 hours ago the patient began having increasing shortness of breath cough decreased appetite no further vomiting or abdominal pain. Patient had a negative COVID antigen and PCR test in ED. upon admit patient is feeling short of breath and slightly anxious, mild cough nonproduct hipolito. Patient denies chest pain, headache, changes in vision, swelling of extremities, loss of taste loss of smell, fever, body aches, chills, nausea, vomiting, diarrhea, recent trauma or injury. Patient denies any cardiac or respiratory history. Patient works in the school district. Patient originally presented to the ED with a temp of 98.5?, BP 197/93, HR 97, RR 33-43, O2 saturations on room air 70%. Patient was placed on nasal cannula oxygen demand quickly escalated, upon admit patient's blood pressure remains elevated 169/75, HR 82, RR 33, heated high-flow 60 L of 50% with an O2 satur ation of 92%. Patients CXR demonstrated patchy bilateral interstitial infiltrates are seen, with superimposed more confluent alveolar type infiltrates, which are consistent with the known clinical history of COVID pneumonia. ABGs pH 7.50, pCO2 30.2, PO2 60, HC03 24, TCO2 25, O2 sat 93%, BE 1, FiO2 50. Patient's wbc's 13.2, neutrophils 9600, platelets 430. Chemistries WNL, glucose 135, alk-phos 3O2, A1c 7.0%, procalcitonin WNL, lactate D 805, ESR 54, CRP 14, troponin WNL. Patients EKG demonstrated normal sinus rhythm, rate 97 with left ventricular hypertrophy with repolarization abnormality ( R in aVL). BNP 414, D-dimer 720 (elevated for age adjust). Patient's CTA demonstrated No PE, patchy bilateral interstitial and airspace opacities which are likely infectious and would be consistent with the provided history of COVID-19. 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 Patient admitted for acute hypoxic respiratory alkalosis failure unknown etiology possible secondary to COVID pneumonia versus community-acquired pneumonia. Patient History Medical History (Updated 04/07/21 @ 23:11 by CARLOS A Lovelace-SHANE) Depression Diabetes Essential hypertension Gout History of colon cancer HTN (hypertension) Hyperlipidemia Non-insulin dependent type 2 diabetes mellitus Obesity (BMI 30-39.9) Surgical History Status post partial resection of colon Status post surgery (03/21/10) Family & Social History Family History Mother Cancer Father COPD (chronic obstructive pulmonary disease) Safety & Behavioral: Feels Safe in Current Yes Environment Been Physically Hurt or No Threatened By a Person Tobacco & Substance use: Smoking Status Never smoker alcohol intake frequency holiday/special occasion Substance Use Type does not use Meds Home Medications and Allergies Home Medications Medication Instructions Recorded Confirmed Type atorvastatin 10 mg tablet (Lipitor) 10 mg PO BEDTIME #0 02/24/12 05/09/18 History clonidine HCl 0.1 mg tablet 0.1 mg PO QDAY #0 02/24/12 History hydrochlorothiazide 12.5 mg capsule 12.5 mg PO DAILY 05/09/18 05/09/18 History lisinopril 40 mg tablet 40 mg PO DAILY 05/09/18 04/07/21 History potassium chloride 10 mEq 10 meq PO BID 05/09/18 05/09/18 History tablet,extended release sertraline 50 mg tablet 50 mg PO DAILY 05/09/18 04/07/21 History albuterol sulfate 90 mcg/actuation 1 - 2 puff INHALATION Q6HR PRN 04/07/21 04/07/21 History aerosol inhaler allopurinol 300 mg tablet 300 mg PO DAILY 04/07/21 04/07/21 History glimepiride 2 mg tablet 2 mg PO DAILY 04/07/21 04/07/21 History Allergies Allergy/AdvReac Type Severity Reaction Status Date / Time Penicillins Allergy Mild RASH Verified 04/07/21 17:46 Sulfa (Sulfonamide Allergy Mild RASH Verified 04/07/21 17:46 Antibiotics) Review of Systems Review of Systems Narrative: All 12 point systems reviewed with the patient and are negative except otherwise documented. Exam Vital Signs (past 8 hours): - 04/07/21 17:46 04/07/21 17:54 04/07/21 17:55 Temperature 98.5 F Pulse Rate 90 97 H 95 H Respiratory Rate 33 H Blood Pressure 197/93 H 217/95 H Pulse Oximetry 70 L 73 L 81 L 04/07/21 18:00 04/07/21 18:01 04/07/21 18:10 Temperature Pulse Rate 86 88 91 H Respiratory Rate 36 H 39 H 35 H Blood Pressure 165/80 H 152/82 H Pulse Oximetry 88 L 88 L 86 L 04/07/21 18:15 04/07/21 18:20 04/07/21 18:30 Temperature Pulse Rate 92 H 91 H 89 Respiratory Rate 43 H Blood Pressure 178/86 H 179/85 H Pulse Oximetry 86 L 88 L 87 L 04/07/21 18:40 04/07/21 18:45 04/07/21 18:48 Temperature Pulse Rate 83 82 91 H Respiratory Rate 32 H Blood Pressure 180/84 H 152/82 H Pulse Oximetry 92 91 91 04/07/21 18:51 04/07/21 19:00 04/07/21 19:10 Temperature Pulse Rate 82 82 82 Respiratory Rate Blood Pressure 169/75 H 165/74 H 161/74 H Pulse Oximetry 92 93 93 04/07/21 19:15 04/07/21 19:20 04/07/21 19:30 Temperature Pulse Rate 80 81 80 Respiratory Rate Blood Pressure 162/75 H 156/74 H Pulse Oximetry 92 92 92 04/07/21 19:40 04/07/21 19:45 04/07/21 19:50 Temperature Pulse Rate 84 83 84 Respiratory Rate Blood Pressure 171/79 H 170/73 H Pulse Oximetry 92 91 90 L 04/07/21 20:00 04/07/21 20:10 04/07/21 20:15 Temperature Pulse Rate 81 79 79 Respiratory Rate Blood Pressure 164/76 H 161/75 H Pulse Oximetry 90 L 91 91 04/07/21 20:20 04/07/21 20:55 04/07/21 21:18 Temperature 98.1 F Pulse Rate 79 87 82 Respiratory Rate 39 H 27 H Blood Pressure 158/74 H 173/83 H 172/79 H Pulse Oximetry 91 94 94 04/07/21 22:02 Temperature Pulse Rate 75 Respiratory Rate Blood Pressure 166/78 H Pulse Oximetry Fraction of Inspired Oxygen 77 Oxygen Delivery Method Heated High Flow Oxygen Flow Rate 55 Narrative Exam Narrative: General: Patient is a well-developed, well-nourished female who is anxious and mildly SOB though in no distress at this time. HEENT: Normocephalic, atraumatic, extraocular muscles intact, oral pharynx is clear and mucous membranes are moist. Neck is supple and symmetric, trachea is midline, no adenopathy, no thyroid enlargement, nontender, no masses palpated. Negative for JVD Chest: Normal AP diameter and contour without kyphoscoliosis, no nasal flaring, or retractions. Positive labored tachypneic breathing. Lungs: Auscultation of all lung mchugh, mild crackles to bilateral bases, occasional expiratory wheezing bilateral lower lobes. Cardio: S1 & S2 with regular rate and rhythm without murmur, rubs, or gallops, no carotid bruit, no cardiac pulsations present. Abdomen: Soft nontender, negative for organomegaly, or masses. Bowel sounds are present in all 4 quadrants without guarding or rebound, no CVA tenderness. Musculoskeletal: Muscle strength and tone are equal within normal limits, no deformity, crepitus, effusions, cyanosis, clubbing or edema present. Full range of motion intact radial and pedal pulses are normal. Skin: Mildly diaphoretic to back & neck, intact without rashes, ulcerations or petechiae. Neuro: Alert and orientated x3, strength is +5/5 in all extremities, sensation to touch intact, no gross deficits noted of cranial nerves. Psych: Patient has a well-kept appearance, appropriate affect, anxious, mental status attitude thought context and judgment are appropriate for age. Objective Labs Result Diagrams: 04/07/21 18:00 04/07/21 18:00 Labs: Laboratory Results - last 24 hr 04/07/21 04/07/21 04/07/21 16:00 16:00 16:00 WBC RBC Hgb Hct MCV MCH MCHC RDW Plt Count Neut % (Auto) Lymph % (Auto) [place] % (Auto) Eos % (Auto) Baso % (Auto) Neut # (Auto) Lymph # (Auto) [place] # (Auto) Eos # (Auto) Baso # (Auto) ESR 54 H D-Dimer ABG pH ABG pCO2 ABG pO2 ABG HCO3 ABG Total CO2 ABG O2 Saturation ABG Base Excess FiO2 Sodium Potassium Chloride Carbon Dioxide BUN Creatinine Estimated GFR BUN/Creatinine Ratio Glucose Hemoglobin A1c 7.0 H Lactate Calcium Magnesium 1.9 Ferritin Total Bilirubin AST ALT Alkaline Phosphatase Lactate Dehydrogenase Total Creatine Kinase CK-MB (CK-2) CK-MB (CK-2) Rel Index Troponin I C-Reactive Protein NT-Pro-B Natriuret Pep Total Protein Albumin Globulin Albumin/Globulin Ratio Procalcitonin Chlamy pneumoniae PCR Adenovirus (PCR) B. pertussis DNA (PCR) B.parapertussis DNA PCR Coronavirus OC43 (PCR) Coronavirus HKU1 (PCR) Coronavirus 229E (PCR) SARS-CoV-2 (PCR) Coronavirus NL63 (PCR) Human Metapneumovir PCR Influenza Type A (PCR) Influenza Type B (PCR) M. pneumoniae (PCR) Parainfluenza 1 (PCR) Parainfluenza 2 (PCR) Parainfluenza 3 (PCR) Parainfluenza 4 (PCR) RSV (PCR) Entero/Rhino (PCR) 04/07/21 04/07/21 04/07/21 17:55 18:00 18:00 WBC 13.2 H RBC 4.52 Hgb 13.3 Hct 40.3 MCV 89.2 MCH 29.4 MCHC 33.0 RDW 14.9 H Plt Count 430 H Neut % (Auto) 72.6 Lymph % (Auto) 21.0 L [place] % (Auto) 4.2 Eos % (Auto) 1.3 L Baso % (Auto) 0.9 Neut # (Auto) 9600 H Lymph # (Auto) 2800 [place] # (Auto) 600 Eos # (Auto) 200 Baso # (Auto) 100 ESR D-Dimer 720 H ABG pH ABG pCO2 ABG pO2 ABG HCO3 ABG Total CO2 ABG O2 Saturation ABG Base Excess FiO2 Sodium Potassium Chloride Carbon Dioxide BUN Creatinine Estimated GFR BUN/Creatinine Ratio Glucose Hemoglobin A1c Lactate Calcium Magnesium Ferritin Total Bilirubin AST ALT Alkaline Phosphatase Lactate Dehydrogenase Total Creatine Kinase CK-MB (CK-2) CK-MB (CK-2) Rel Index Troponin I C-Reactive Protein NT-Pro-B Natriuret Pep Total Protein Albumin Globulin Albumin/Globulin Ratio Procalcitonin Chlamy pneumoniae PCR Adenovirus (PCR) B. pertussis DNA (PCR) B.parapertussis DNA PCR Coronavirus OC43 (PCR) Coronavirus HKU1 (PCR) Coronavirus 229E (PCR) SARS-CoV-2 (PCR) Negative Coronavirus NL63 (PCR) Human Metapneumovir PCR Influenza Type A (PCR) Influenza Type B (PCR) M. pneumoniae (PCR) Parainfluenza 1 (PCR) Parainfluenza 2 (PCR) Parainfluenza 3 (PCR) Parainfluenza 4 (PCR) RSV (PCR) Entero/Rhino (PCR) 04/07/21 04/07/21 04/07/21 18:00 18:00 18:00 WBC RBC Hgb Hct MCV MCH MCHC RDW Plt Count Neut % (Auto) Lymph % (Auto) [place] % (Auto) Eos % (Auto) Baso % (Auto) Neut # (Auto) Lymph # (Auto) [place] # (Auto) Eos # (Auto) Baso # (Auto) ESR D-Dimer ABG pH ABG pCO2 ABG pO2 ABG HCO3 ABG Total CO2 ABG O2 Saturation ABG Base Excess FiO2 Sodium 140 Potassium 3.9 Chloride 106 Carbon Dioxide 24 BUN 18 H Creatinine 0.94 Estimated GFR > 60.0 BUN/Creatinine Ratio 19.1 Glucose 135 H Hemoglobin A1c Lactate 1.9 Calcium 10.7 H Magnesium Ferritin 140 Total Bilirubin 0.7 AST 35 ALT 22 Alkaline Phosphatase 302 H Lactate Dehydrogenase 805 H Total Creatine Kinase 29 L CK-MB (CK-2) TNP CK-MB (CK-2) Rel Index TNP Troponin I < 0.012 C-Reactive Protein 14.0 H NT-Pro-B Natriuret Pep 414 H Total Protein 7.8 Albumin 3.8 Globulin 4.0 Albumin/Globulin Ratio 1.0 Procalcitonin 0.50 Chlamy pneumoniae PCR Adenovirus (PCR) B. pertussis DNA (PCR) B.parapertussis DNA PCR Coronavirus OC43 (PCR) Coronavirus HKU1 (PCR) Coronavirus 229E (PCR) SARS-CoV-2 (PCR) Coronavirus NL63 (PCR) Human Metapneumovir PCR Influenza Type A (PCR) Influenza Type B (PCR) M. pneumoniae (PCR) Parainfluenza 1 (PCR) Parainfluenza 2 (PCR) Parainfluenza 3 (PCR) Parainfluenza 4 (PCR) RSV (PCR) Entero/Rhino (PCR) 04/07/21 04/07/21 18:14 19:45 WBC RBC Hgb Hct MCV MCH MCHC RDW Plt Count Neut % (Auto) Lymph % (Auto) [place] % (Auto) Eos % (Auto) Baso % (Auto) Neut # (Auto) Lymph # (Auto) [place] # (Auto) Eos # (Auto) Baso # (Auto) ESR D-Dimer ABG pH 7.50 H ABG pCO2 30.2 L ABG pO2 60 L ABG HCO3 24 ABG Total CO2 25 ABG O2 Saturation 93 L ABG Base Excess 1.0 FiO2 50 Sodium Potassium Chloride Carbon Dioxide BUN Creatinine Estimated GFR BUN/Creatinine Ratio Glucose Hemoglobin A1c Lactate Calcium Magnesium Ferritin Total Bilirubin AST ALT Alkaline Phosphatase Lactate Dehydrogenase Total Creatine Kinase CK-MB (CK-2) CK-MB (CK-2) Rel Index Troponin I C-Reactive Protein NT-Pro-B Natriuret Pep Total Protein Albumin Globulin Albumin/Globulin Ratio Procalcitonin Chlamy pneumoniae PCR Not detected Adenovirus (PCR) Not detected B. pertussis DNA (PCR) Not detected B.parapertussis DNA PCR Not detected Coronavirus OC43 (PCR) Not detected Coronavirus HKU1 (PCR) Not detected Coronavirus 229E (PCR) Not detected SARS-CoV-2 (PCR) Not detected Coronavirus NL63 (PCR) Not detected Human Metapneumovir PCR Not detected Influenza Type A (PCR) Not detected Influenza Type B (PCR) Not detected M. pneumoniae (PCR) Not detected Parainfluenza 1 (PCR) Not detected Parainfluenza 2 (PCR) Not detected Parainfluenza 3 (PCR) Not detected Parainfluenza 4 (PCR) Not detected RSV (PCR) Not detected Entero/Rhino (PCR) Not detected Assessment & Plan Assessment & Plan narrative: Steffany Jovel is a 61 year olf female with a medical history of hypertension, hyperlipidemia, yyb-igmtqki-svlmwljns type 2 diabetes, depression, anxiety, gout, and obesity who presented to the ED in acute hypoxic respiratory distress. Positive for COVID pneumonia on approximately 03/20/2021, fully vaccinated for COVID with [employer]. Monoclonal antibodies treatment on March 21, 2021. Patient had a negative COVID antigen and PCR test in ED. Patient admitted for acute hypoxic respiratory alkalosis failure unknown etiology possible secondary to COVID pneumonia versus community-acquired pneumonia. Suspect that patient's negative COVID tests are false negatives due to treatment with monoclonal anti bodies. Will treat patient with COVID pneumonia protocol, and placed in isolation, will also cover patient for community-acquired pneumonia (pseudomonal/pneumococcal coverage) while waiting for pending blood cultures, respiratory panel was negative- ordered MRSA due to school district exposure. Will retest for COVID PCR tomorrow. 1. Acute hypoxic respiratory alkalosis failure of unknown etiology, possible due to COVID-19 pneumonia versus community-acquired pneumonia, acute, present on admission -suspect that this is COVID pneumonia and that the PCR and antigen tests were false negatives. -Admit to ICU -tele dumper mold cleaner consult -ED with a temp of 98.5?, BP 197/93, HR 97, RR 33-43, O2 saturations on room air 70%. -Admit 169/75, HR 82, RR 33, heated high-flow 60 L/ 50% with an O2 saturation of 92%. -CXR demonstrated patchy bilateral interstitial infiltrates are seen, with superimposed more confluent alveolar type infiltrates, which are consistent with the known clinical history of COVID pneumonia. -ABGs pH 7.50, pCO2 30.2, PO2 60, HC03 24, TCO2 25, O2 sat 93%, BE 1, FiO2 50. -wbc's 13.2, neutrophils 9600, platelets 430, procalcitonin WNL, lactate D 805, ESR 54, CRP 14, troponin WNL. -BNP 414, D-dimer 720 (elevated for age adjust). -CTA demonstrated No PE, patchy bilateral interstitial and airspace opacities which are likely infectious and would be consistent with the provided history of COVID-19. Left atrial filling defect which appears to be based on the interat rial septum and slightly enhances, thought to represent an atrial myxoma al though this is not definitive. -Atrial Myxoma on CTA - Echo ordered tomorrow. -In ED azithromycin, dexamethasone, remdesivir - 6 mg dexamethasone q.day, remdesivir 100 mg q.day, Barcinib 4 mg q.day, Resp consult, Deuoneb Q4hr, proning, incentive spirometry, Lovenox 40mg Q12hrs,VBG am -Repeat COVID PCR in AM -MRSA PCR ordered, Respiratory panel -Negative -Blood cultures pending- Empiric covering for anti pseudomonal/anti pneumococcal (gram negative)-Levoquin 750mg Q24hrs x 5 days. Low suspicion for ESBL. -Risk factors: Obesity, Diabetes, exposure to children/schools, recent COVID pneumonia infection. 2. Essential hypertension, hypertensive urgency, acute on chronic, present on admission-uncontrolled -197/93, 173/83 -Continue lisinopril 3. Hyperlipidemia, chronic, secondary to mda-jcgzkzf-fjhmpuerg type 2 diabetes, hyperglycemia, acute on chronic, present on admission -glucose 135, alk-phos 3O2, A1c 7.0% -patient admitted on diabetes protocol, with low-dose sliding scale, monitor for hyper and hypoglycemia -continue patient's Lipitor, hold glimerpiride 4. Depression with anxiety, acute on chronic, present on admission -continue patient's sertraline, clonidine, Ativan for anxiety 5. Gout, chronic, present on admission -continue patient's allopurinol 6. Obesity as evidence by BMI of 37.6, acute on chronic, present on admission -consideration will be given for dietary counseling Code status:Full Surrogate decision maker: Naveed Jovel Spouse COVID PCR:Negative Positive 03/20/2021 COVID vaccination: Complete Pfizer 2020-monoclonal antibody treatment 03/21/2021 DVT/VTE prophylaxis: Lovenox 40 mg q.12 hours and SCDs Disposition: Patient admitted to the ICU expected length of stay greater than 2 midnights. I have utilized all available immediate resources to obtain, update, or review the patient's current medications. I confirmed that the patient's advanced care plan is present, Code status is documented and/or surrogate decision maker is listed in the patient's medical record. Time Spent With Patient Critical Care time: I spent a total of [] minutes of critical care time on this patient's care today; this time is exclusive of procedural time.
--- NOTE | 2021-04-07 22:34 | PM.CN.EICU ---
History of Present Illness Consult details Date Patient Seen: 04/07/21 Chief complaint: difficulty breathing :: This patient was seen via real time interactive two-way audiovisual telecommunication. Narrative: 61 y.o. female who came into the ED with SOB x 3 days. She tested (+) for COVID 2 days before Thanksgiving and apparently received an antibody infusion. She is currently on 30L 75% HFNC and is saturating 93% on this. She was empiricially started on dexamethasone and remdesivir; however, respiratory panel was (-) for SARS-CoV2. pCXR showed bilateral infiltrates which was confirmed on a pulmonary CTA-this was (-) for thromboembolism. There is no known history of any cardiac disease. Medical comorbidities are notable for HTN, T2DM, gout and COPD. [facility] Medical History (Updated 04/07/21 @ 23:00 by Benny Singh MD) Depression Diabetes Gout History of colon cancer HTN (hypertension) Hyperlipidemia Surgical History Status post partial resection of colon Status post surgery (03/21/10) Family History Other Family history non-contributory Social History household members: spouse Smoking Status: Never smoker Current Medications Current Medications Medications: Home Medications atorvastatin 10 mg tablet (Lipitor) 10 mg PO BEDTIME #0 02/24/12 [History Confirmed 05/09/18] clonidine HCl 0.1 mg tablet 0.1 mg PO QDAY #0 02/24/12 [History] hydrochlorothiazide 12.5 mg capsule 12.5 mg PO DAILY 05/09/18 [History Confirmed 05/09/18] lisinopril 40 mg tablet 40 mg PO DAILY 05/09/18 [History Confirmed 04/07/21] potassium chloride 10 mEq tablet,extended release 10 meq PO BID 05/09/18 [History Confirmed 05/09/18] sertraline 50 mg tablet 50 mg PO DAILY 05/09/18 [History Confirmed 04/07/21] albuterol sulfate 90 mcg/actuation aerosol inhaler 1 - 2 puff INHALATION Q6HR PRN 04/07/21 [History Confirmed 04/07/21] allopurinol 300 mg tablet 300 mg PO DAILY 04/07/21 [History Confirmed 04/07/21] glimepiride 2 mg tablet 2 mg PO DAILY 04/07/21 [History Confirmed 04/07/21] Visit Medications (administered) Generic Name Dose Route Start Last Admin Trade Name Kusum PRN Reason Stop Dose Admin Atorvastatin Calcium 10 mg 04/07/21 21:00 04/07/21 22:02 Atorvastatin 20 Mg Tablet PO 10 mg BEDTIME ZACKERY Administration Sodium Chloride 1,000 mls @ 100 mls/hr 04/07/21 18:00 04/07/21 18:27 Normal Saline 0.9% IV 100 mls/hr CONT ZACKERY Administration Insulin Human Lispro 0 unit 04/07/21 21:00 04/07/21 22:03 Insulin Lispro 100 Unit/Ml 3ml Vial SUBCUT 100 unit ACHS ZACKERY Administration Protocol Exam Vital Signs (past 8 hours): - 04/07/21 17:46 04/07/21 17:54 04/07/21 17:55 Temperature 98.5 F Pulse Rate 90 97 H 95 H Respiratory Rate 33 H Blood Pressure 197/93 H 217/95 H Pulse Oximetry 70 L 73 L 81 L 04/07/21 18:00 04/07/21 18:01 04/07/21 18:10 Temperature Pulse Rate 86 88 91 H Respiratory Rate 36 H 39 H 35 H Blood Pressure 165/80 H 152/82 H Pulse Oximetry 88 L 88 L 86 L 04/07/21 18:15 04/07/21 18:20 04/07/21 18:30 Temperature Pulse Rate 92 H 91 H 89 Respiratory Rate 43 H Blood Pressure 178/86 H 179/85 H Pulse Oximetry 86 L 88 L 87 L 04/07/21 18:40 04/07/21 18:45 04/07/21 18:48 Temperature Pulse Rate 83 82 91 H Respiratory Rate 32 H Blood Pressure 180/84 H 152/82 H Pulse Oximetry 92 91 91 04/07/21 18:51 04/07/21 19:00 04/07/21 19:10 Temperature Pulse Rate 82 82 82 Respiratory Rate Blood Pressure 169/75 H 165/74 H 161/74 H Pulse Oximetry 92 93 93 04/07/21 19:15 04/07/21 19:20 04/07/21 19:30 Temperature Pulse Rate 80 81 80 Respiratory Rate Blood Pressure 162/75 H 156/74 H Pulse Oximetry 92 92 92 04/07/21 19:40 04/07/21 19:45 04/07/21 19:50 Temperature Pulse Rate 84 83 84 Respiratory Rate Blood Pressure 171/79 H 170/73 H Pulse Oximetry 92 91 90 L 04/07/21 20:00 04/07/21 20:10 04/07/21 20:15 Temperature Pulse Rate 81 79 79 Respiratory Rate Blood Pressure 164/76 H 161/75 H Pulse Oximetry 90 L 91 91 04/07/21 20:20 04/07/21 20:55 04/07/21 21:18 Temperature 98.1 F Pulse Rate 79 87 82 Respiratory Rate 39 H 27 H Blood Pressure 158/74 H 173/83 H 172/79 H Pulse Oximetry 91 94 94 04/07/21 22:02 Temperature Pulse Rate 75 Respiratory Rate Blood Pressure 166/78 H Pulse Oximetry Fraction of Inspired Oxygen 77 Oxygen Delivery Method Heated High Flow Oxygen Flow Rate 55 Const General: well developed Nutritional Appearance: obese Resp Effort & Inspection: tachypneic Objective Labs Result Diagrams: 04/07/21 18:00 04/07/21 18:00 Labs: Laboratory Results - last 24 hr 04/07/21 04/07/21 04/07/21 16:00 16:00 16:00 WBC RBC Hgb Hct MCV MCH MCHC RDW Plt Count Neut % (Auto) Lymph % (Auto) [place] % (Auto) Eos % (Auto) Baso % (Auto) Neut # (Auto) Lymph # (Auto) [place] # (Auto) Eos # (Auto) Baso # (Auto) ESR 54 H D-Dimer ABG pH ABG pCO2 ABG pO2 ABG HCO3 ABG Total CO2 ABG O2 Saturation ABG Base Excess FiO2 Sodium Potassium Chloride Carbon Dioxide BUN Creatinine Estimated GFR BUN/Creatinine Ratio Glucose Hemoglobin A1c 7.0 H Lactate Calcium Magnesium 1.9 Ferritin Total Bilirubin AST ALT Alkaline Phosphatase Lactate Dehydrogenase Total Creatine Kinase CK-MB (CK-2) CK-MB (CK-2) Rel Index Troponin I C-Reactive Protein NT-Pro-B Natriuret Pep Total Protein Albumin Globulin Albumin/Globulin Ratio Procalcitonin Chlamy pneumoniae PCR Adenovirus (PCR) B. pertussis DNA (PCR) B.parapertussis DNA PCR Coronavirus OC43 (PCR) Coronavirus HKU1 (PCR) Coronavirus 229E (PCR) SARS-CoV-2 (PCR) Coronavirus NL63 (PCR) Human Metapneumovir PCR Influenza Type A (PCR) Influenza Type B (PCR) M. pneumoniae (PCR) Parainfluenza 1 (PCR) Parainfluenza 2 (PCR) Parainfluenza 3 (PCR) Parainfluenza 4 (PCR) RSV (PCR) Entero/Rhino (PCR) 04/07/21 04/07/21 04/07/21 17:55 18:00 18:00 WBC 13.2 H RBC 4.52 Hgb 13.3 Hct 40.3 MCV 89.2 MCH 29.4 MCHC 33.0 RDW 14.9 H Plt Count 430 H Neut % (Auto) 72.6 Lymph % (Auto) 21.0 L [place] % (Auto) 4.2 Eos % (Auto) 1.3 L Baso % (Auto) 0.9 Neut # (Auto) 9600 H Lymph # (Auto) 2800 [place] # (Auto) 600 Eos # (Auto) 200 Baso # (Auto) 100 ESR D-Dimer 720 H ABG pH ABG pCO2 ABG pO2 ABG HCO3 ABG Total CO2 ABG O2 Saturation ABG Base Excess FiO2 Sodium Potassium Chloride Carbon Dioxide BUN Creatinine Estimated GFR BUN/Creatinine Ratio Glucose Hemoglobin A1c Lactate Calcium Magnesium Ferritin Total Bilirubin AST ALT Alkaline Phosphatase Lactate Dehydrogenase Total Creatine Kinase CK-MB (CK-2) CK-MB (CK-2) Rel Index Troponin I C-Reactive Protein NT-Pro-B Natriuret Pep Total Protein Albumin Globulin Albumin/Globulin Ratio Procalcitonin Chlamy pneumoniae PCR Adenovirus (PCR) B. pertussis DNA (PCR) B.parapertussis DNA PCR Coronavirus OC43 (PCR) Coronavirus HKU1 (PCR) Coronavirus 229E (PCR) SARS-CoV-2 (PCR) Negative Coronavirus NL63 (PCR) Human Metapneumovir PCR Influenza Type A (PCR) Influenza Type B (PCR) M. pneumoniae (PCR) Parainfluenza 1 (PCR) Parainfluenza 2 (PCR) Parainfluenza 3 (PCR) Parainfluenza 4 (PCR) RSV (PCR) Entero/Rhino (PCR) 04/07/21 04/07/21 04/07/21 18:00 18:00 18:00 WBC RBC Hgb Hct MCV MCH MCHC RDW Plt Count Neut % (Auto) Lymph % (Auto) [place] % (Auto) Eos % (Auto) Baso % (Auto) Neut # (Auto) Lymph # (Auto) [place] # (Auto) Eos # (Auto) Baso # (Auto) ESR D-Dimer ABG pH ABG pCO2 ABG pO2 ABG HCO3 ABG Total CO2 ABG O2 Saturation ABG Base Excess FiO2 Sodium 140 Potassium 3.9 Chloride 106 Carbon Dioxide 24 BUN 18 H Creatinine 0.94 Estimated GFR > 60.0 BUN/Creatinine Ratio 19.1 Glucose 135 H Hemoglobin A1c Lactate 1.9 Calcium 10.7 H Magnesium Ferritin 140 Total Bilirubin 0.7 AST 35 ALT 22 Alkaline Phosphatase 302 H Lactate Dehydrogenase 805 H Total Creatine Kinase 29 L CK-MB (CK-2) TNP CK-MB (CK-2) Rel Index TNP Troponin I < 0.012 C-Reactive Protein 14.0 H NT-Pro-B Natriuret Pep 414 H Total Protein 7.8 Albumin 3.8 Globulin 4.0 Albumin/Globulin Ratio 1.0 Procalcitonin 0.50 Chlamy pneumoniae PCR Adenovirus (PCR) B. pertussis DNA (PCR) B.parapertussis DNA PCR Coronavirus OC43 (PCR) Coronavirus HKU1 (PCR) Coronavirus 229E (PCR) SARS-CoV-2 (PCR) Coronavirus NL63 (PCR) Human Metapneumovir PCR Influenza Type A (PCR) Influenza Type B (PCR) M. pneumoniae (PCR) Parainfluenza 1 (PCR) Parainfluenza 2 (PCR) Parainfluenza 3 (PCR) Parainfluenza 4 (PCR) RSV (PCR) Entero/Rhino (PCR) 04/07/21 04/07/21 18:14 19:45 WBC RBC Hgb Hct MCV MCH MCHC RDW Plt Count Neut % (Auto) Lymph % (Auto) [place] % (Auto) Eos % (Auto) Baso % (Auto) Neut # (Auto) Lymph # (Auto) [place] # (Auto) Eos # (Auto) Baso # (Auto) ESR D-Dimer ABG pH 7.50 H ABG pCO2 30.2 L ABG pO2 60 L ABG HCO3 24 ABG Total CO2 25 ABG O2 Saturation 93 L ABG Base Excess 1.0 FiO2 50 Sodium Potassium Chloride Carbon Dioxide BUN Creatinine Estimated GFR BUN/Creatinine Ratio Glucose Hemoglobin A1c Lactate Calcium Magnesium Ferritin Total Bilirubin AST ALT Alkaline Phosphatase Lactate Dehydrogenase Total Creatine Kinase CK-MB (CK-2) CK-MB (CK-2) Rel Index Troponin I C-Reactive Protein NT-Pro-B Natriuret Pep Total Protein Albumin Globulin Albumin/Globulin Ratio Procalcitonin Chlamy pneumoniae PCR Not detected Adenovirus (PCR) Not detected B. pertussis DNA (PCR) Not detected B.parapertussis DNA PCR Not detected Coronavirus OC43 (PCR) Not detected Coronavirus HKU1 (PCR) Not detected Coronavirus 229E (PCR) Not detected SARS-CoV-2 (PCR) Not detected Coronavirus NL63 (PCR) Not detected Human Metapneumovir PCR Not detected Influenza Type A (PCR) Not detected Influenza Type B (PCR) Not detected M. pneumoniae (PCR) Not detected Parainfluenza 1 (PCR) Not detected Parainfluenza 2 (PCR) Not detected Parainfluenza 3 (PCR) Not detected Parainfluenza 4 (PCR) Not detected RSV (PCR) Not detected Entero/Rhino (PCR) Not detected Assessment & Plan Assessment and plan (1) Acute hypoxemic respiratory failure due to COVID-19: Status: Acute Plan: -COVID-19 protocol w/ remdesivir, dexamethasone, baricitinib -Continue HFNC; titrate to O2 saturation >= 90% -High dose enoxaparin VTE chemoprophylaxis given obesity and high D-dimer -Would repeat SARS-CoV2 PCR within 24H and assume that current test is a false negative -Reasonable to treat for community-acquired pneumonia given diagnostic uncertainty-->my suspicion for a community-acquired pneumonia this is low given CT scan appearance, clinical history and normal procalcitonin --> levofloxacin monotherapy is acceptable; consider MRSA swab (2) Type 2 diabetes mellitus: Status: Acute Plan: -Correctional insulin; watch for worsening on dexamethasone (3) HTN (hypertension): Status: Acute Plan: -Continue outpatient ACEI (4) Gout: Status: Acute Plan: -Continue allopurinol Time Spent With Patient Critical Care time: I spent a total of 35 minutes of critical care time on this patient's care today; this time is exclusive of procedural time. Discussed w/ OMID Sacha.
[2021-04-07] MEDS: levoFLOXacin 750 MG/150 ML PIGGYBACK 100 MG IV (23:24)
[2021-04-08] VITALS (56 sets, daily range): BP systolic 114–164; BP diastolic 62–90; PULSE 64–88; RESP 20–37; TEMP 36.8–38; O2SAT 87–100
--- NOTE | 2021-04-08 01:35 | PC.NURSE ---
PATIENT CONSISTENTLY WAS HAVING ELEVATED RESPIRATORY RATE. ATTEMPTED TO HAVE PATIENT PRONE, BUT SHE DID NOT TOLERATE. SHE WAS UNCOMFORTABLE AND HAD AN INCREASED RESPIRATORY RATE. SHE STATED SHE COULD NOT CATCH HER BREATH. ATTEMPTED TO HAVE PATIENT LAY ON HER LEFT SIDE, BUT SHE ALSO DID NOT TOLERATE. SHE HAD THE SAME RESULTS PRONING. PLACED PATIENT IN SEMI-FOWLERS POSITION AND SHE STATED THIS IS THE BEST POSITION AND HER RESPIRATORY RATE DECREASED TO 25. SHE WAS ABLE TO TAKE DEEP BREATHS WITHOUT COUGHING IN THIS POSITION. OXYGENATION REMAINED >95% IN ALL POSITIONS.
[2021-04-08] MEDS: LORazepam 0.5 MG TABLET PO ×2 (03:04→09:43)
--- NOTE | 2021-04-08 03:04 | PC.NURSE ---
PATIENT CONTINUED TO HAVE SUSTAINED INCREASED RESPIRATORY RATE. OXYGENATION SATURATION HAS REMAINED >98%. ADMINISTERED ATIVAN.
[2021-04-08] MEDS: ACETAMINOPHEN 325 MG TABLET 650 MG PO (03:42)
[2021-04-08 05:02] LABS: HCO3 VBG 25 mmol/L (23-28); Oxygen Saturation VBG 88 % (70-75); PCO2 VBG 39.9 mmHg (45-50); PO2 VBG 54 mmHg (35-45); Total CO2 VBG 26 mmol/L (24-29)
[2021-04-08 05:03] LABS: pH VBG 7.41 (7.33-7.43)
[2021-04-08 05:25] LABS: INR 1.4 (0.9-1.3); Prothrombin Time 15.5 SECONDS (10.1-12.7)
[2021-04-08 05:26] LABS: Add Manual Diff / Slide Review NO; Basophils Absolute Auto 100 /uL (0-100); Basophils Percent Auto 0.9 % (0-2); Eosinophils Absolute Auto 0 /uL (0-450); Eosinophils Percent Auto 0.4 % (2-4); Hematocrit 35.4 % (36-46); Hemoglobin 11.7 g/dL (12.0-16.0); Lymphocytes Absolute Auto 1500 /uL (1100-4500); Lymphocytes Percent Auto 16.3 % (25-40); Mean Corpuscular HGB Conc 33.2 % (30-36); Mean Corpuscular Hemoglobin 29.6 PG (26-34); Mean Corpuscular Volume 89.1 fL (80-100); Monocytes Absolute Auto 300 /uL (0-900); Monocytes Percent Auto 3.1 % (3-14); Neutrophils Absolute Auto 7300 /uL (1500-7000); Neutrophils Percent Auto 79.3 % (50-75); Platelet Count 366 X10^3/uL (150-400); Red Blood Cell Count 3.97 X10^6/uL (4.0-5.2); Red Cell Distribution Width 14.7 % (11.6-14.8); White Blood Cell Count 9.2 X10^3/uL (4.5-11.0)
[2021-04-08 05:28] LABS: PTT Partial Thromboplastin Tim 40 SECONDS (26.4-36.2)
[2021-04-08 05:33] LABS: Alanine Aminotransferase 20 IU/L (<35); Albumin 3.5 g/dL (3.5-5.0); Alkaline Phosphatase 256 U/L (38-126); Aspartate Aminotransferase 38 IU/L (14-36); BUN Creatinine Ratio 22.1 (6-22); Bilirubin Total 0.4 mg/dL (0.2-1.3); Blood Urea Nitrogen 19 mg/dL (7-17); Calcium 10.6 mg/dL (8.4-10.2); Carbon Dioxide 26 mmol/L (22-32); Chloride 108 mmol/L (98-107); Estimated Glomerular Filt Rate > 60.0 mL/min (>60); Globulin 3.6 g/dL (1.7-4.1); Glucose 161 mg/dL (80-110); HEMOLYSIS < 15 (0-50); Potassium 4.3 mmol/L (3.4-5.1); Sodium 141 mmol/L (137-145); Total Protein 7.1 g/dL (6.3-8.2)
[2021-04-08 05:40] LABS: NT-proBNP (BNP-Adult 18+) 435 pg/mL (<125)
[2021-04-08 05:57] LABS: COVID19 - ADMIT (NP swab/PCR) POSITIVE (Negative)
[2021-04-08] MEDS: BARICITINIB 2 MG TABLET 4 MG PO (08:31)
[2021-04-08] MEDS: DEXAMETHASONE 10 MG/ML VIAL 6 MG IV (08:32)
[2021-04-08] MEDS: SERTRALINE 50 MG TABLET PO (08:33)
[2021-04-08] MEDS: lisinopriL 20 MG TABLET 40 MG PO (08:33)
[2021-04-08] MEDS: allopurinoL 300 MG TABLET PO (08:57)
--- NOTE | 2021-04-08 09:46 | P.TELICUPN_ITS ---
Subjective Subjective :: This patient was seen via real time interactive two-way audiovisual telecommunication. Admitted overnight for acute hypoxemia respiratory failure secondary to COVID pneumonia. On HFNC 60/75%. Pending TTE to rule out left atrial myxoma. Current Medications Current Medications Medications: Home Medications atorvastatin 10 mg tablet (Lipitor) 10 mg PO BEDTIME #0 02/24/12 [History Confirmed 05/09/18] clonidine HCl 0.1 mg tablet 0.1 mg PO QDAY #0 02/24/12 [History] hydrochlorothiazide 12.5 mg capsule 12.5 mg PO DAILY 05/09/18 [History Confirmed 05/09/18] lisinopril 40 mg tablet 40 mg PO DAILY 05/09/18 [History Confirmed 04/07/21] potassium chloride 10 mEq tablet,extended release 10 meq PO BID 05/09/18 [History Confirmed 05/09/18] sertraline 50 mg tablet 50 mg PO DAILY 05/09/18 [History Confirmed 04/07/21] albuterol sulfate 90 mcg/actuation aerosol inhaler 1 - 2 puff INHALATION Q6HR PRN 04/07/21 [History Confirmed 04/07/21] allopurinol 300 mg tablet 300 mg PO DAILY 04/07/21 [History Confirmed 04/07/21] glimepiride 2 mg tablet 2 mg PO DAILY 04/07/21 [History Confirmed 04/07/21] Visit Medications (administered) Generic Name Dose Route Start Last Admin Trade Name Freq PRN Reason Stop Dose Admin Acetaminophen 650 mg 04/07/21 19:47 04/08/21 03:42 Acetaminophen 325 Mg Tablet PO 650 mg Q6HR PRN Administration Fever/Mild Pain (1-3) Allopurinol 300 mg 04/08/21 09:00 04/08/21 08:57 Allopurinol 300 Mg Tablet PO 300 mg DAILY ZACKERY Administration Atorvastatin Calcium 10 mg 04/07/21 21:00 04/07/21 22:02 Atorvastatin 20 Mg Tablet PO 10 mg BEDTIME ZACKERY Administration Dexamethasone 6 mg 04/08/21 09:00 04/08/21 08:32 Dexamethasone 10 Mg/Ml Vial IV 6 mg DAILY ZACKERY Administration Insulin Human Lispro 0 unit 04/07/21 21:00 04/08/21 08:30 Insulin Lispro 100 Unit/Ml 3ml Vial SUBCUT Not Given ACHS ZACKERY Protocol Lisinopril 40 mg 04/08/21 09:00 04/08/21 08:33 Lisinopril 20 Mg Tablet PO 40 mg DAILY ZACKERY Administration Lorazepam 0.5 mg 04/07/21 22:07 04/08/21 03:04 Lorazepam 0.5 Mg Tablet PO 0.5 mg Q4HR PRN Administration Anxiety Sertraline HCl 50 mg 04/08/21 09:00 04/08/21 08:33 Sertraline 50 Mg Tablet PO 50 mg DAILY ZACKERY Administration Objective Ventilator Parameters: Ventilator Settings FiO2 50 Labs Result Diagrams: 04/08/21 04:48 04/08/21 04:48 Labs: Laboratory Results - last 24 hr 04/07/21 04/07/21 04/07/21 16:00 16:00 16:00 WBC RBC Hgb Hct MCV MCH MCHC RDW Plt Count Neut % (Auto) Lymph % (Auto) [place] % (Auto) Eos % (Auto) Baso % (Auto) Neut # (Auto) Lymph # (Auto) [place] # (Auto) Eos # (Auto) Baso # (Auto) ESR 54 H PT INR APTT D-Dimer ABG pH ABG pCO2 ABG pO2 ABG HCO3 ABG Total CO2 ABG O2 Saturation ABG Base Excess VBG pH VBG pCO2 VBG pO2 VBG HCO3 VBG Total CO2 VBG O2 Saturation VBG Base Excess FiO2 Sodium Potassium Chloride Carbon Dioxide BUN Creatinine Estimated GFR BUN/Creatinine Ratio Glucose Hemoglobin A1c 7.0 H Lactate Calcium Magnesium 1.9 Ferritin Total Bilirubin AST ALT Alkaline Phosphatase Lactate Dehydrogenase Total Creatine Kinase CK-MB (CK-2) CK-MB (CK-2) Rel Index Troponin I C-Reactive Protein NT-Pro-B Natriuret Pep Total Protein Albumin Globulin Albumin/Globulin Ratio Procalcitonin Nasal Screen MRSA (PCR) Chlamy pneumoniae PCR Adenovirus (PCR) B. pertussis DNA (PCR) B.parapertussis DNA PCR Coronavirus OC43 (PCR) Coronavirus HKU1 (PCR) Coronavirus 229E (PCR) SARS-CoV-2 (PCR) Coronavirus NL63 (PCR) Human Metapneumovir PCR Influenza Type A (PCR) Influenza Type B (PCR) M. pneumoniae (PCR) Parainfluenza 1 (PCR) Parainfluenza 2 (PCR) Parainfluenza 3 (PCR) Parainfluenza 4 (PCR) RSV (PCR) Entero/Rhino (PCR) 04/07/21 04/07/21 04/07/21 17:55 18:00 18:00 WBC 13.2 H RBC 4.52 Hgb 13.3 Hct 40.3 MCV 89.2 MCH 29.4 MCHC 33.0 RDW 14.9 H Plt Count 430 H Neut % (Auto) 72.6 Lymph % (Auto) 21.0 L [place] % (Auto) 4.2 Eos % (Auto) 1.3 L Baso % (Auto) 0.9 Neut # (Auto) 9600 H Lymph # (Auto) 2800 [place] # (Auto) 600 Eos # (Auto) 200 Baso # (Auto) 100 ESR PT INR APTT D-Dimer 720 H ABG pH ABG pCO2 ABG pO2 ABG HCO3 ABG Total CO2 ABG O2 Saturation ABG Base Excess VBG pH VBG pCO2 VBG pO2 VBG HCO3 VBG Total CO2 VBG O2 Saturation VBG Base Excess FiO2 Sodium Potassium Chloride Carbon Dioxide BUN Creatinine Estimated GFR BUN/Creatinine Ratio Glucose Hemoglobin A1c Lactate Calcium Magnesium Ferritin Total Bilirubin AST ALT Alkaline Phosphatase Lactate Dehydrogenase Total Creatine Kinase CK-MB (CK-2) CK-MB (CK-2) Rel Index Troponin I C-Reactive Protein NT-Pro-B Natriuret Pep Total Protein Albumin Globulin Albumin/Globulin Ratio Procalcitonin Nasal Screen MRSA (PCR) Chlamy pneumoniae PCR Adenovirus (PCR) B. pertussis DNA (PCR) B.parapertussis DNA PCR Coronavirus OC43 (PCR) Coronavirus HKU1 (PCR) Coronavirus 229E (PCR) SARS-CoV-2 (PCR) Negative Coronavirus NL63 (PCR) Human Metapneumovir PCR Influenza Type A (PCR) Influenza Type B (PCR) M. pneumoniae (PCR) Parainfluenza 1 (PCR) Parainfluenza 2 (PCR) Parainfluenza 3 (PCR) Parainfluenza 4 (PCR) RSV (PCR) Entero/Rhino (PCR) 04/07/21 04/07/21 04/07/21 18:00 18:00 18:00 WBC RBC Hgb Hct MCV MCH MCHC RDW Plt Count Neut % (Auto) Lymph % (Auto) [place] % (Auto) Eos % (Auto) Baso % (Auto) Neut # (Auto) Lymph # (Auto) [place] # (Auto) Eos # (Auto) Baso # (Auto) ESR PT INR APTT D-Dimer ABG pH ABG pCO2 ABG pO2 ABG HCO3 ABG Total CO2 ABG O2 Saturation ABG Base Excess VBG pH VBG pCO2 VBG pO2 VBG HCO3 VBG Total CO2 VBG O2 Saturation VBG Base Excess FiO2 Sodium 140 Potassium 3.9 Chloride 106 Carbon Dioxide 24 BUN 18 H Creatinine 0.94 Estimated GFR > 60.0 BUN/Creatinine Ratio 19.1 Glucose 135 H Hemoglobin A1c Lactate 1.9 Calcium 10.7 H Magnesium Ferritin 140 Total Bilirubin 0.7 AST 35 ALT 22 Alkaline Phosphatase 302 H Lactate Dehydrogenase 805 H Total Creatine Kinase 29 L CK-MB (CK-2) TNP CK-MB (CK-2) Rel Index TNP Troponin I < 0.012 C-Reactive Protein 14.0 H NT-Pro-B Natriuret Pep 414 H Total Protein 7.8 Albumin 3.8 Globulin 4.0 Albumin/Globulin Ratio 1.0 Procalcitonin 0.50 Nasal Screen MRSA (PCR) Chlamy pneumoniae PCR Adenovirus (PCR) B. pertussis DNA (PCR) B.parapertussis DNA PCR Coronavirus OC43 (PCR) Coronavirus HKU1 (PCR) Coronavirus 229E (PCR) SARS-CoV-2 (PCR) Coronavirus NL63 (PCR) Human Metapneumovir PCR Influenza Type A (PCR) Influenza Type B (PCR) M. pneumoniae (PCR) Parainfluenza 1 (PCR) Parainfluenza 2 (PCR) Parainfluenza 3 (PCR) Parainfluenza 4 (PCR) RSV (PCR) Entero/Rhino (PCR) 04/07/21 04/07/21 04/08/21 18:14 19:45 00:10 WBC RBC Hgb Hct MCV MCH MCHC RDW Plt Count Neut % (Auto) Lymph % (Auto) [place] % (Auto) Eos % (Auto) Baso % (Auto) Neut # (Auto) Lymph # (Auto) [place] # (Auto) Eos # (Auto) Baso # (Auto) ESR PT INR APTT D-Dimer ABG pH 7.50 H ABG pCO2 30.2 L ABG pO2 60 L ABG HCO3 24 ABG Total CO2 25 ABG O2 Saturation 93 L ABG Base Excess 1.0 VBG pH VBG pCO2 VBG pO2 VBG HCO3 VBG Total CO2 VBG O2 Saturation VBG Base Excess FiO2 50 Sodium Potassium Chloride Carbon Dioxide BUN Creatinine Estimated GFR BUN/Creatinine Ratio Glucose Hemoglobin A1c Lactate Calcium Magnesium Ferritin Total Bilirubin AST ALT Alkaline Phosphatase Lactate Dehydrogenase Total Creatine Kinase CK-MB (CK-2) CK-MB (CK-2) Rel Index Troponin I C-Reactive Protein NT-Pro-B Natriuret Pep Total Protein Albumin Globulin Albumin/Globulin Ratio Procalcitonin Nasal Screen MRSA (PCR) Negative for mrsa Chlamy pneumoniae PCR Not detected Adenovirus (PCR) Not detected B. pertussis DNA (PCR) Not detected B.parapertussis DNA PCR Not detected Coronavirus OC43 (PCR) Not detected Coronavirus HKU1 (PCR) Not detected Coronavirus 229E (PCR) Not detected SARS-CoV-2 (PCR) Not detected Coronavirus NL63 (PCR) Not detected Human Metapneumovir PCR Not detected Influenza Type A (PCR) Not detected Influenza Type B (PCR) Not detected M. pneumoniae (PCR) Not detected Parainfluenza 1 (PCR) Not detected Parainfluenza 2 (PCR) Not detected Parainfluenza 3 (PCR) Not detected Parainfluenza 4 (PCR) Not detected RSV (PCR) Not detected Entero/Rhino (PCR) Not detected 04/08/21 04/08/21 04/08/21 04:48 04:48 04:48 WBC 9.2 RBC 3.97 L Hgb 11.7 L Hct 35.4 L MCV 89.1 MCH 29.6 MCHC 33.2 RDW 14.7 Plt Count 366 Neut % (Auto) 79.3 H Lymph % (Auto) 16.3 L [place] % (Auto) 3.1 Eos % (Auto) 0.4 L Baso % (Auto) 0.9 Neut # (Auto) 7300 H Lymph # (Auto) 1500 [place] # (Auto) 300 Eos # (Auto) 0 Baso # (Auto) 100 ESR PT 15.5 H INR 1.4 H APTT 40 H D-Dimer ABG pH ABG pCO2 ABG pO2 ABG HCO3 ABG Total CO2 ABG O2 Saturation ABG Base Excess VBG pH VBG pCO2 VBG pO2 VBG HCO3 VBG Total CO2 VBG O2 Saturation VBG Base Excess FiO2 Sodium 141 Potassium 4.3 Chloride 108 H Carbon Dioxide 26 BUN 19 H Creatinine 0.86 Estimated GFR > 60.0 BUN/Creatinine Ratio 22.1 H Glucose 161 H Hemoglobin A1c Lactate Calcium 10.6 H Magnesium Ferritin Total Bilirubin 0.4 AST 38 H ALT 20 Alkaline Phosphatase 256 H Lactate Dehydrogenase Total Creatine Kinase CK-MB (CK-2) CK-MB (CK-2) Rel Index Troponin I C-Reactive Protein NT-Pro-B Natriuret Pep 435 H Total Protein 7.1 Albumin 3.5 Globulin 3.6 Albumin/Globulin Ratio 1.0 Procalcitonin Nasal Screen MRSA (PCR) Chlamy pneumoniae PCR Adenovirus (PCR) B. pertussis DNA (PCR) B.parapertussis DNA PCR Coronavirus OC43 (PCR) Coronavirus HKU1 (PCR) Coronavirus 229E (PCR) SARS-CoV-2 (PCR) Coronavirus NL63 (PCR) Human Metapneumovir PCR Influenza Type A (PCR) Influenza Type B (PCR) M. pneumoniae (PCR) Parainfluenza 1 (PCR) Parainfluenza 2 (PCR) Parainfluenza 3 (PCR) Parainfluenza 4 (PCR) RSV (PCR) Entero/Rhino (PCR) 04/08/21 04/08/21 04:49 05:00 WBC RBC Hgb Hct MCV MCH MCHC RDW Plt Count Neut % (Auto) Lymph % (Auto) [place] % (Auto) Eos % (Auto) Baso % (Auto) Neut # (Auto) Lymph # (Auto) [place] # (Auto) Eos # (Auto) Baso # (Auto) ESR PT INR APTT D-Dimer ABG pH ABG pCO2 ABG pO2 ABG HCO3 ABG Total CO2 ABG O2 Saturation ABG Base Excess VBG pH 7.41 VBG pCO2 39.9 L VBG pO2 54 H VBG HCO3 25 VBG Total CO2 26 VBG O2 Saturation 88 H VBG Base Excess 1.0 FiO2 Sodium Potassium Chloride Carbon Dioxide BUN Creatinine Estimated GFR BUN/Creatinine Ratio Glucose Hemoglobin A1c Lactate Calcium Magnesium Ferritin Total Bilirubin AST ALT Alkaline Phosphatase Lactate Dehydrogenase Total Creatine Kinase CK-MB (CK-2) CK-MB (CK-2) Rel Index Troponin I C-Reactive Protein NT-Pro-B Natriuret Pep Total Protein Albumin Globulin Albumin/Globulin Ratio Procalcitonin Nasal Screen MRSA (PCR) Chlamy pneumoniae PCR Adenovirus (PCR) B. pertussis DNA (PCR) B.parapertussis DNA PCR Coronavirus OC43 (PCR) Coronavirus HKU1 (PCR) Coronavirus 229E (PCR) SARS-CoV-2 (PCR) Positive H Coronavirus NL63 (PCR) Human Metapneumovir PCR Influenza Type A (PCR) Influenza Type B (PCR) M. pneumoniae (PCR) Parainfluenza 1 (PCR) Parainfluenza 2 (PCR) Parainfluenza 3 (PCR) Parainfluenza 4 (PCR) RSV (PCR) Entero/Rhino (PCR) Exam Vital Signs (past 8 hours): - 04/08/21 02:00 04/08/21 02:15 04/08/21 02:30 Temperature Pulse Rate 69 71 69 Respiratory Rate 31 H 32 H 35 H Blood Pressure 142/66 H Pulse Oximetry 93 93 93 04/08/21 02:35 04/08/21 02:45 04/08/21 03:00 Temperature Pulse Rate 70 69 70 Respiratory Rate 30 H 31 H 32 H Blood Pressure 137/78 Pulse Oximetry 92 93 92 04/08/21 03:01 04/08/21 03:15 04/08/21 03:30 Temperature Pulse Rate 70 77 69 Respiratory Rate 29 H 25 H 33 H Blood Pressure 146/71 H 153/65 H Pulse Oximetry 92 95 93 04/08/21 03:42 04/08/21 03:45 04/08/21 03:48 Temperature 100.4 F H Pulse Rate 82 77 Respiratory Rate 35 H 26 H Blood Pressure 153/65 H Pulse Oximetry 92 94 04/08/21 03:49 04/08/21 04:00 04/08/21 04:01 Temperature 100.4 F H Pulse Rate 73 74 Respiratory Rate 28 H 26 H Blood Pressure 143/77 H Pulse Oximetry 92 93 04/08/21 04:15 04/08/21 04:30 04/08/21 04:31 Temperature 98.2 F Pulse Rate 70 69 69 Respiratory Rate 27 H 29 H 29 H Blood Pressure 130/84 130/84 Pulse Oximetry 94 95 94 04/08/21 04:45 04/08/21 05:00 04/08/21 05:01 Temperature Pulse Rate 72 69 70 Respiratory Rate 26 H 29 H 30 H Blood Pressure 121/72 Pulse Oximetry 95 94 95 04/08/21 05:15 04/08/21 05:25 04/08/21 05:30 Temperature Pulse Rate 69 68 70 Respiratory Rate 26 H 24 30 H Blood Pressure 121/72 114/69 Pulse Oximetry 95 94 93 04/08/21 05:45 04/08/21 06:00 04/08/21 06:05 Temperature Pulse Rate 67 67 77 Respiratory Rate 28 H 23 28 H Blood Pressure 128/90 Pulse Oximetry 94 90 L 92 04/08/21 06:15 04/08/21 06:30 04/08/21 06:31 Temperature Pulse Rate 73 67 68 Respiratory Rate 30 H 25 H 25 H Blood Pressure 152/70 H Pulse Oximetry 94 94 94 04/08/21 08:00 04/08/21 08:50 Temperature 98.3 F Pulse Rate 78 78 Respiratory Rate 36 H 28 H Blood Pressure 138/78 Pulse Oximetry 92 92 Fraction of Inspired Oxygen 50 Oxygen Delivery Method High Flow Nasal Cannula,Heated High Flow Oxygen Flow Rate 60 Quality TeleICU VTE Deep Vein Thrombosis/Pulmonary Embolism Present on Admission: No Assessment & Plan Assessment & Plan narrative: # Acute hypoxemia respiratory failure -- Secondary to COVID PNA? -- On HFNC 60/75% -- Encourage self proning as tolerated -- COVID rx as below -- Encourage IS and OOB as tolerated -- HOB elevation and aspiration precautions -- Goal SpO2 > 88% # COVID PNA -- Confirmed SARS-CoV-2 -- Trend CRP, D dimer, ferritin, and D dimer -- On decadron, baricitinib, and remdesivir -- Avoid NSAIDs -- Start gentle diuresis to seek net negative fluid balance -- On strict contact, droplet/airborne, eye protection, and critical meticulous hand hygiene # DM -- On ISS -- GOal BS < 180 # HTN -- On lisinopril 40 mg daily -- Goal SBP < 140 # Abnormal CT findings -- Filling defect noted in left atrium concerning for left atrial myxoma -- Pending final TTE -- If confirmed left atrial myxoma then will need cardiology consultation Time Spent With Patient Critical Care time: I spent a total of [] minutes of critical care time on this patient's care today; this time is exclusive of procedural time.
--- NOTE | 2021-04-08 11:02 | PM.PN.1 ---
Subjective Subjective Date Patient Seen: 04/08/21 Time Patient Seen: 08:00 Interval history: She feels improved. She says she is less short of breath. However, she remains on heated high flow and tachypneic. She desats with activity. Exam Vital Signs (past 8 hours): - 04/08/21 03:15 04/08/21 03:30 04/08/21 03:42 Temperature 100.4 F H Pulse Rate 77 69 Respiratory Rate 25 H 33 H Blood Pressure 153/65 H Pulse Oximetry 95 93 04/08/21 03:45 04/08/21 03:48 04/08/21 03:49 Temperature 100.4 F H Pulse Rate 82 77 Respiratory Rate 35 H 26 H Blood Pressure 153/65 H Pulse Oximetry 92 94 04/08/21 04:00 04/08/21 04:01 04/08/21 04:15 Temperature 98.2 F Pulse Rate 73 74 70 Respiratory Rate 28 H 26 H 27 H Blood Pressure 143/77 H 130/84 Pulse Oximetry 92 93 94 04/08/21 04:30 04/08/21 04:31 04/08/21 04:45 Temperature Pulse Rate 69 69 72 Respiratory Rate 29 H 29 H 26 H Blood Pressure 130/84 Pulse Oximetry 95 94 95 04/08/21 05:00 04/08/21 05:01 04/08/21 05:15 Temperature Pulse Rate 69 70 69 Respiratory Rate 29 H 30 H 26 H Blood Pressure 121/72 Pulse Oximetry 94 95 95 04/08/21 05:25 04/08/21 05:30 04/08/21 05:45 Temperature Pulse Rate 68 70 67 Respiratory Rate 24 30 H 28 H Blood Pressure 121/72 114/69 Pulse Oximetry 94 93 94 04/08/21 06:00 04/08/21 06:05 04/08/21 06:15 Temperature Pulse Rate 67 77 73 Respiratory Rate 23 28 H 30 H Blood Pressure 128/90 Pulse Oximetry 90 L 92 94 04/08/21 06:30 04/08/21 06:31 04/08/21 08:00 Temperature 98.3 F Pulse Rate 67 68 78 Respiratory Rate 25 H 25 H 36 H Blood Pressure 152/70 H 138/78 Pulse Oximetry 94 94 92 04/08/21 08:50 Temperature Pulse Rate 78 Respiratory Rate 28 H Blood Pressure Pulse Oximetry 92 Fraction of Inspired Oxygen 50 Oxygen Delivery Method High Flow Nasal Cannula,Heated High Flow Oxygen Flow Rate 60 Narrative Exam Narrative: General:? no acute distress Lungs:? poor air movement bilaterally Cardio:? regular rate and rhythm with no murmurs Abdomen:? soft, nontender, nondistended, no organomegaly, normal bowel sounds Objective Labs Result Diagrams: 04/08/21 04:48 04/08/21 04:48 Labs: Laboratory Results - last 24 hr 04/07/21 04/07/21 04/07/21 16:00 16:00 16:00 WBC RBC Hgb Hct MCV MCH MCHC RDW Plt Count Neut % (Auto) Lymph % (Auto) Sawyer % (Auto) Eos % (Auto) Baso % (Auto) Neut # (Auto) Lymph # (Auto) Sawyer # (Auto) Eos # (Auto) Baso # (Auto) ESR 54 H PT INR APTT D-Dimer ABG pH ABG pCO2 ABG pO2 ABG HCO3 ABG Total CO2 ABG O2 Saturation ABG Base Excess VBG pH VBG pCO2 VBG pO2 VBG HCO3 VBG Total CO2 VBG O2 Saturation VBG Base Excess FiO2 Sodium Potassium Chloride Carbon Dioxide BUN Creatinine Estimated GFR BUN/Creatinine Ratio Glucose Hemoglobin A1c 7.0 H Lactate Calcium Magnesium 1.9 Ferritin Total Bilirubin AST ALT Alkaline Phosphatase Lactate Dehydrogenase Total Creatine Kinase CK-MB (CK-2) CK-MB (CK-2) Rel Index Troponin I C-Reactive Protein NT-Pro-B Natriuret Pep Total Protein Albumin Globulin Albumin/Globulin Ratio Procalcitonin Nasal Screen MRSA (PCR) Chlamy pneumoniae PCR Adenovirus (PCR) B. pertussis DNA (PCR) B.parapertussis DNA PCR Coronavirus OC43 (PCR) Coronavirus HKU1 (PCR) Coronavirus 229E (PCR) SARS-CoV-2 (PCR) Coronavirus NL63 (PCR) Human Metapneumovir PCR Influenza Type A (PCR) Influenza Type B (PCR) M. pneumoniae (PCR) Parainfluenza 1 (PCR) Parainfluenza 2 (PCR) Parainfluenza 3 (PCR) Parainfluenza 4 (PCR) RSV (PCR) Entero/Rhino (PCR) 04/07/21 04/07/21 04/07/21 17:55 18:00 18:00 WBC 13.2 H RBC 4.52 Hgb 13.3 Hct 40.3 MCV 89.2 MCH 29.4 MCHC 33.0 RDW 14.9 H Plt Count 430 H Neut % (Auto) 72.6 Lymph % (Auto) 21.0 L Sawyer % (Auto) 4.2 Eos % (Auto) 1.3 L Baso % (Auto) 0.9 Neut # (Auto) 9600 H Lymph # (Auto) 2800 Sawyer # (Auto) 600 Eos # (Auto) 200 Baso # (Auto) 100 ESR PT INR APTT D-Dimer 720 H ABG pH ABG pCO2 ABG pO2 ABG HCO3 ABG Total CO2 ABG O2 Saturation ABG Base Excess VBG pH VBG pCO2 VBG pO2 VBG HCO3 VBG Total CO2 VBG O2 Saturation VBG Base Excess FiO2 Sodium Potassium Chloride Carbon Dioxide BUN Creatinine Estimated GFR BUN/Creatinine Ratio Glucose Hemoglobin A1c Lactate Calcium Magnesium Ferritin Total Bilirubin AST ALT Alkaline Phosphatase Lactate Dehydrogenase Total Creatine Kinase CK-MB (CK-2) CK-MB (CK-2) Rel Index Troponin I C-Reactive Protein NT-Pro-B Natriuret Pep Total Protein Albumin Globulin Albumin/Globulin Ratio Procalcitonin Nasal Screen MRSA (PCR) Chlamy pneumoniae PCR Adenovirus (PCR) B. pertussis DNA (PCR) B.parapertussis DNA PCR Coronavirus OC43 (PCR) Coronavirus HKU1 (PCR) Coronavirus 229E (PCR) SARS-CoV-2 (PCR) Negative Coronavirus NL63 (PCR) Human Metapneumovir PCR Influenza Type A (PCR) Influenza Type B (PCR) M. pneumoniae (PCR) Parainfluenza 1 (PCR) Parainfluenza 2 (PCR) Parainfluenza 3 (PCR) Parainfluenza 4 (PCR) RSV (PCR) Entero/Rhino (PCR) 04/07/21 04/07/21 04/07/21 18:00 18:00 18:00 WBC RBC Hgb Hct MCV MCH MCHC RDW Plt Count Neut % (Auto) Lymph % (Auto) Sawyer % (Auto) Eos % (Auto) Baso % (Auto) Neut # (Auto) Lymph # (Auto) Sawyer # (Auto) Eos # (Auto) Baso # (Auto) ESR PT INR APTT D-Dimer ABG pH ABG pCO2 ABG pO2 ABG HCO3 ABG Total CO2 ABG O2 Saturation ABG Base Excess VBG pH VBG pCO2 VBG pO2 VBG HCO3 VBG Total CO2 VBG O2 Saturation VBG Base Excess FiO2 Sodium 140 Potassium 3.9 Chloride 106 Carbon Dioxide 24 BUN 18 H Creatinine 0.94 Estimated GFR > 60.0 BUN/Creatinine Ratio 19.1 Glucose 135 H Hemoglobin A1c Lactate 1.9 Calcium 10.7 H Magnesium Ferritin 140 Total Bilirubin 0.7 AST 35 ALT 22 Alkaline Phosphatase 302 H Lactate Dehydrogenase 805 H Total Creatine Kinase 29 L CK-MB (CK-2) TNP CK-MB (CK-2) Rel Index TNP Troponin I < 0.012 C-Reactive Protein 14.0 H NT-Pro-B Natriuret Pep 414 H Total Protein 7.8 Albumin 3.8 Globulin 4.0 Albumin/Globulin Ratio 1.0 Procalcitonin 0.50 Nasal Screen MRSA (PCR) Chlamy pneumoniae PCR Adenovirus (PCR) B. pertussis DNA (PCR) B.parapertussis DNA PCR Coronavirus OC43 (PCR) Coronavirus HKU1 (PCR) Coronavirus 229E (PCR) SARS-CoV-2 (PCR) Coronavirus NL63 (PCR) Human Metapneumovir PCR Influenza Type A (PCR) Influenza Type B (PCR) M. pneumoniae (PCR) Parainfluenza 1 (PCR) Parainfluenza 2 (PCR) Parainfluenza 3 (PCR) Parainfluenza 4 (PCR) RSV (PCR) Entero/Rhino (PCR) 04/07/21 04/07/21 04/08/21 18:14 19:45 00:10 WBC RBC Hgb Hct MCV MCH MCHC RDW Plt Count Neut % (Auto) Lymph % (Auto) Sawyer % (Auto) Eos % (Auto) Baso % (Auto) Neut # (Auto) Lymph # (Auto) Sawyer # (Auto) Eos # (Auto) Baso # (Auto) ESR PT INR APTT D-Dimer ABG pH 7.50 H ABG pCO2 30.2 L ABG pO2 60 L ABG HCO3 24 ABG Total CO2 25 ABG O2 Saturation 93 L ABG Base Excess 1.0 VBG pH VBG pCO2 VBG pO2 VBG HCO3 VBG Total CO2 VBG O2 Saturation VBG Base Excess FiO2 50 Sodium Potassium Chloride Carbon Dioxide BUN Creatinine Estimated GFR BUN/Creatinine Ratio Glucose Hemoglobin A1c Lactate Calcium Magnesium Ferritin Total Bilirubin AST ALT Alkaline Phosphatase Lactate Dehydrogenase Total Creatine Kinase CK-MB (CK-2) CK-MB (CK-2) Rel Index Troponin I C-Reactive Protein NT-Pro-B Natriuret Pep Total Protein Albumin Globulin Albumin/Globulin Ratio Procalcitonin Nasal Screen MRSA (PCR) Negative for mrsa Chlamy pneumoniae PCR Not detected Adenovirus (PCR) Not detected B. pertussis DNA (PCR) Not detected B.parapertussis DNA PCR Not detected Coronavirus OC43 (PCR) Not detected Coronavirus HKU1 (PCR) Not detected Coronavirus 229E (PCR) Not detected SARS-CoV-2 (PCR) Not detected Coronavirus NL63 (PCR) Not detected Human Metapneumovir PCR Not detected Influenza Type A (PCR) Not detected Influenza Type B (PCR) Not detected M. pneumoniae (PCR) Not detected Parainfluenza 1 (PCR) Not detected Parainfluenza 2 (PCR) Not detected Parainfluenza 3 (PCR) Not detected Parainfluenza 4 (PCR) Not detected RSV (PCR) Not detected Entero/Rhino (PCR) Not detected 04/08/21 04/08/21 04/08/21 04:48 04:48 04:48 WBC 9.2 RBC 3.97 L Hgb 11.7 L Hct 35.4 L MCV 89.1 MCH 29.6 MCHC 33.2 RDW 14.7 Plt Count 366 Neut % (Auto) 79.3 H Lymph % (Auto) 16.3 L Sawyer % (Auto) 3.1 Eos % (Auto) 0.4 L Baso % (Auto) 0.9 Neut # (Auto) 7300 H Lymph # (Auto) 1500 Sawyer # (Auto) 300 Eos # (Auto) 0 Baso # (Auto) 100 ESR PT 15.5 H INR 1.4 H APTT 40 H D-Dimer ABG pH ABG pCO2 ABG pO2 ABG HCO3 ABG Total CO2 ABG O2 Saturation ABG Base Excess VBG pH VBG pCO2 VBG pO2 VBG HCO3 VBG Total CO2 VBG O2 Saturation VBG Base Excess FiO2 Sodium 141 Potassium 4.3 Chloride 108 H Carbon Dioxide 26 BUN 19 H Creatinine 0.86 Estimated GFR > 60.0 BUN/Creatinine Ratio 22.1 H Glucose 161 H Hemoglobin A1c Lactate Calcium 10.6 H Magnesium Ferritin Total Bilirubin 0.4 AST 38 H ALT 20 Alkaline Phosphatase 256 H Lactate Dehydrogenase Total Creatine Kinase CK-MB (CK-2) CK-MB (CK-2) Rel Index Troponin I C-Reactive Protein NT-Pro-B Natriuret Pep 435 H Total Protein 7.1 Albumin 3.5 Globulin 3.6 Albumin/Globulin Ratio 1.0 Procalcitonin Nasal Screen MRSA (PCR) Chlamy pneumoniae PCR Adenovirus (PCR) B. pertussis DNA (PCR) B.parapertussis DNA PCR Coronavirus OC43 (PCR) Coronavirus HKU1 (PCR) Coronavirus 229E (PCR) SARS-CoV-2 (PCR) Coronavirus NL63 (PCR) Human Metapneumovir PCR Influenza Type A (PCR) Influenza Type B (PCR) M. pneumoniae (PCR) Parainfluenza 1 (PCR) Parainfluenza 2 (PCR) Parainfluenza 3 (PCR) Parainfluenza 4 (PCR) RSV (PCR) Entero/Rhino (PCR) 04/08/21 04/08/21 04:49 05:00 WBC RBC Hgb Hct MCV MCH MCHC RDW Plt Count Neut % (Auto) Lymph % (Auto) Sawyer % (Auto) Eos % (Auto) Baso % (Auto) Neut # (Auto) Lymph # (Auto) Sawyer # (Auto) Eos # (Auto) Baso # (Auto) ESR PT INR APTT D-Dimer ABG pH ABG pCO2 ABG pO2 ABG HCO3 ABG Total CO2 ABG O2 Saturation ABG Base Excess VBG pH 7.41 VBG pCO2 39.9 L VBG pO2 54 H VBG HCO3 25 VBG Total CO2 26 VBG O2 Saturation 88 H VBG Base Excess 1.0 FiO2 Sodium Potassium Chloride Carbon Dioxide BUN Creatinine Estimated GFR BUN/Creatinine Ratio Glucose Hemoglobin A1c Lactate Calcium Magnesium Ferritin Total Bilirubin AST ALT Alkaline Phosphatase Lactate Dehydrogenase Total Creatine Kinase CK-MB (CK-2) CK-MB (CK-2) Rel Index Troponin I C-Reactive Protein NT-Pro-B Natriuret Pep Total Protein Albumin Globulin Albumin/Globulin Ratio Procalcitonin Nasal Screen MRSA (PCR) Chlamy pneumoniae PCR Adenovirus (PCR) B. pertussis DNA (PCR) B.parapertussis DNA PCR Coronavirus OC43 (PCR) Coronavirus HKU1 (PCR) Coronavirus 229E (PCR) SARS-CoV-2 (PCR) Positive H Coronavirus NL63 (PCR) Human Metapneumovir PCR Influenza Type A (PCR) Influenza Type B (PCR) M. pneumoniae (PCR) Parainfluenza 1 (PCR) Parainfluenza 2 (PCR) Parainfluenza 3 (PCR) Parainfluenza 4 (PCR) RSV (PCR) Entero/Rhino (PCR) [facility] Medical History Depression Diabetes Essential hypertension Gout History of colon cancer HTN (hypertension) Hyperlipidemia Non-insulin dependent type 2 diabetes mellitus Obesity (BMI 30-39.9) Surgical History Status post partial resection of colon Status post surgery (03/21/10) Family History Mother Cancer Father COPD (chronic obstructive pulmonary disease) Social History household members: spouse Smoking Status: Never smoker Assessment & Plan Assessment & Plan narrative: 1. Acute hypoxemic respiratory failure secondary to COVID pneumonia -COVID positive -CT shows bilateral interstitial infiltrates -started on dexamethasone, baricitinib, and remdesivir -also ordered for nebs and incentive spirometry -respiratory panel negative, blood cultures negative 2. Essential hypertension, chronic -Continue lisinopril 3. Hyperlipidemia secondary to [id number] type 2 diabetes, hyperglycemia -continue insulin sliding scale -continue patient's Lipitor, hold glimerpiride 4. Depression with anxiety, chronic -continue patient's sertraline, clonidine, Ativan for anxiety 5. Gout, chronic -continue patient's allopurinol 6. Obesity as evidence by BMI of 37.6 -consideration will be given for dietary counseling Time Spent With Patient Critical Care time: I spent a total of [] minutes of critical care time on this patient's care today; this time is exclusive of procedural time. Quality VTE Deep Vein Thrombosis/Pulmonary Embolism Present on Admission: No
--- NOTE | 2021-04-08 11:30 | CM.DANOTE ---
DCP Brief Assessment: patient is 61 yr old female who is here for Covid Pneumonia with respiratory failure.. Patient is on Heated high flow O2 at 30L per NC. Patient lives with her in [place] is fully vaccinated and had monoclonal antibodies treatment in the end of February 2021. Patient is Independent at baseline and drives. Patient according to does not utilize any DME at her baseline. I: [employer] and self pay P: DC plan is home with when medically stable. Patient may need home O2 depending on clinical course of Covid Infection. Patients planning on transporting patient home when patient is medically stable. No identified DC planning needs identified but CM Department will follow to assist with any DC planning needs that may arise. Kristi humphrey Discharge Planning/Care Management CM Discharge Assessment Start: 04/08/21 11:27 Freq: Status: Active Protocol: Document 04/08/21 11:27 HS (Rec: 04/08/21 11:30 HS [id number]) Discharge Planning Assessment Assigned [employer]ender Kristi Humphrey DPOA/Assigned Designee Name conrado Jovel ( ) Contact Information [phone] Advance Directives? No History Provided By Patient,Medical Record Prior Living Arrangements House Household Members spouse Type of transporation used prior to Drives own vehicle admit Independent with ADL's Yes Is patient alert and oriented? Yes Caregiver for Another No Barriers to Discharge No Discharge Plan Home Referrals Initiated None needed Additional Comment none needed at this time if patient deconditions while here she may need HH or SNF but that will be determined as it gets closer to DC. patient may also need home O2. Whiteboard Updated in Patient Room with No name and ext. # of Green Coffee Blender Comment not able to go into patients room Review Status In Process Next Review Type Continued Stay Review
[2021-04-08] MEDS: FUROSEMIDE 20 MG/2 ML VIAL IV ×2 (12:10→20:56)
[2021-04-08] MEDS: ENOXAPARIN 40 MG/0.4 ML SYRINGE SUBCUT ×2 (12:10→20:39)
[2021-04-08 12:47] LABS: RBC Urine None Seen (0-5/HPF)
[2021-04-08 12:48] LABS: Amorphous Sediment Urine 2+; Bacteria Urine None Seen; Culture Indicated Urine Cult Not Indicated; WBC Urine 0-1/HPF (0-5/HPF)
[2021-04-08] MEDS: INSULIN LISPRO 100 UNIT/ML 3ML VIAL SUBCUT ×2 (13:18→17:37)
--- NOTE | 2021-04-08 13:21 | PC.NURSE ---
AM shift Pt is resting comfortably at present 60L 60% Fio2, with any activity, some desatting noted, even with preoxygenating. Up to BSC as a 1PA, recovers over 3-4 minutes while sitting at edge of bed
--- NOTE | 2021-04-08 17:37 | PC.NURSE ---
Patient slept from 13:00-17:30
--- NOTE | 2021-04-08 19:39 | PC.NURSE ---
Am shift Pt has had increased coughing fits causing decreased Spo2 RT into increased Fio2 up to 100% this afternoon, after extended hypoxia mid 80's. At this time, Pt sitting up in bed, does not actually appear to have signifcant increase to WOB. Anxiety appears to be significant component to Pt tachypnea. Using PO Lorazepam and enc proning. I can't When patient discussed POC and increased O2 needs this shift, she is more agreeable to proning and will do side to side. Kimball placed, R groin with increased beefy red fungal appearance to skin. Update to Oncoming RN for antifungal. Pt is comfortable at present. Discussed use of Morphine and Precidex as needed if Pt is unable to keep anxiety managed and to allow for proning. Echo resulted with growth as previously seen on CT scan. Pt updated about this and I will call to reassure at Pt request.
[2021-04-08] MEDS: ATORVASTATIN 20 MG TABLET 10 MG PO (20:40)
[2021-04-08] MEDS: SODIUM CHLORIDE 0.9% FLUSH 10 ML IV (20:48)
--- NOTE | 2021-04-08 20:53 | PM.ICURNDS ---
- Date Patient Seen: 04/08/21 Time Patient Seen: 20:50 :: This patient was seen via real time interactive two-way audiovisual telecommunication. Note: Chart reviewed. Patient is sleeping comfortably on 95% 60 L/min HFNC and is saturating 91%. RN is about to start Precedex and attempt self-proning. Diuresed 1400 mL after furosemide 20 mg. Will repeat furosemide 20 mg IV now given high FiO2 requirements; hopefully, she will be able to self-prone on Precedex. RN reports that 2-D echo showed an atrial myxoma; she has not had any atrial tachyarrhythmias. Continue present management; discussed with RT and RN.
[2021-04-08] MEDS: REMDESIVIR 100 MG in SODIUM CHLORIDE 0.9% 230 ML 250 ML IV (21:42)
--- NOTE | 2021-04-08 22:51 | DI.RAD.S_ITS ---
PROCEDURE: XR CHEST 1V INDICATIONS: PICC line placement TECHNIQUE: One view of the chest was acquired. COMPARISON: [facility], , XR CHEST 1V, 04/07/2021, 18:01. FINDINGS: Surgical changes and devices: Left PICC projects to the midline. Lungs and pleura: Bilateral airspace opacities consistent with pneumonia. No pleural effusions or pneumothorax. Mediastinum: Mediastinal contours appear normal. Heart size is normal. Bones and chest wall: No suspicious bony lesions. Overlying soft tissues appear unremarkable. IMPRESSION: The tip of the left ache projects to the midline, probably in the area of brachiocephalic confluence. Recommend to advance the catheter by approximately 3 cm. Dictated by: Richie Galo M.D. on 04/08/2021 at 23:27 Approved by: Richie Galo M.D. on 04/08/2021 at 23:38
[2021-04-08] MEDS: dexmedeTOMIDine in 0.9 % NaCL 400 MCG/100 ML PLAST..BAG IV (23:18)
--- NOTE | 2021-04-08 23:32 | DI.ECHO.S_ITS ---
[place] [facility]---------+ [facility] +---------+ : : [address] : : : : [id number] : : : : Phone: [phone] Echocardiogram Report + + :Name: MONICA HEAD Study Date: 04/08/2021 Height: 64 in : :[facility] ReadingLocation: Weight: 213 lb : : Gender: Female BSA: 2.0 m2 : :: 1960 Age: 61 yrs BP: 138/78 mmHg: :Reason For Study: ACUTE RESPIRATORY FAILURE : :Ordering Physician: Ke : :Hospitalist Performed By: Marbella Mac : :Referring: BERNARDA CROOKS : + + Interpretation Summary The left ventricle is normal in size and wall thickness. Left ventricular systolic function is normal. The ejection fraction is estimated to be 60-65%. There are no obvious focal wall motion abnormalities noted but poor endocardial definition reduces the sensitivity for the detection of such. Diastolic parameters suggest a relaxation abnormality of the left ventricle, consistent with probable normal filling pressures. The right ventricle is at the upper limits of normal in size. The right ventricular systolic function is normal. Pulmonary artery pressures cannot be estimated because of the lack of a measurable TR jet velocity but the IVC suggests a CVP of around 3 mmHg. Borderline left atrial enlargement. A mass suggestive of myxoma is noted in the left atrium. A mass suggestive of myxoma is noted in the left atrium 3.4 x 2.5 x 2.2 cm. It appears to be attached to atrial septum. Right atrial size is normal. The interatrial septum grossly appears intact with no obvious evidence for an atrial septal defect. There is no significant valvular heart disease. The aortic root is normal size. Procedure: A two-dimensional transthoracic echocardiogram with color flow and Doppler was performed. The study quality was technically difficult. There is no prior echocardiogram noted for this patient. EKG is not obtained due to limiting equipment brought into an Airborne precaution room. Left Ventricle: The left ventricle is normal in size and wall thickness. Left ventricular systolic function is normal. The ejection fraction is estimated to be 60-65%. There are no obvious focal wall motion abnormalities noted but poor endocardial definition reduces the sensitivity for the detection of such. Diastolic parameters suggest a relaxation abnormality of the left ventricle, consistent with probable normal filling pressures. Right Ventricle: The right ventricle is at the upper limits of normal in size. The right ventricular systolic function is normal. Atria: Borderline left atrial enlargement. A mass suggestive of myxoma is noted in the left atrium. A mass suggestive of myxoma is noted in the left atrium 3.4 x 2.5 x 2.2 cm. It appears to be attached to atrial septum. Right atrial size is normal. The interatrial septum grossly appears intact with no obvious evidence for an atrial septal defect. Mitral Valve: The mitral valve is normal in structure and function. There is no mitral regurgitation noted. Aortic Valve: The aortic valve is trileaflet. The aortic valve opens well. No aortic regurgitation is present. Tricuspid Valve: The tricuspid valve leaflets are thin and pliable. Pulmonary artery pressures cannot be estimated because of the lack of a measurable TR jet velocity but the IVC suggests a CVP of around 3 mmHg. Pulmonic Valve: The pulmonic valve is not well visualized. There is no significant valvular heart disease. Great Vessels: The aortic root is normal size. The ascending aorta is mildly enlarged. The IVC is of normal diameter and collapses greater than 50% with a sniff. This suggests a low right atrial pressure of 3 mm Hg. Pericardium/ Pleura There is no pericardial effusion. MMode/2D Measurements & Calculations LVIDd: 5.0 cm LVOT diam: 2.0 cm LVIDs: 3.7 cm Ao root diam: 3.2 cm FS: 26.9 % asc Aorta Diam: 3.5 cm IVSd: 1.2 cm LVPWd: 0.89 cm LV tineo. diameter/BSA (cm/m^2): 2.5 LV sys. diameter/BSA (cm/m^2): 1.8 LA A2 area: 21.4 cm2 RA long axis: 7.0 cm LA A4 area: 22.6 cm2 RA area: 18.6 cm2 LA length (vol): 6.1 cm RA vol: 42.0 ml LA vol: 67.3 ml RA : 20.9 ml/m2 LA vol index: 33.5 ml/m2 IVC diam: 0.69 cm RVD1 (basal): 4.1 cm TAPSE: 2.3 cm Doppler Measurements & Calculations Ao V2 max: 161.4 cm/sec LVOT Max Aaron: 84.9 cm/sec Ao V2 mean: 101.2 cm/sec LV V1 max P.9 mmHg Ao max P.4 mmHg LV V1 VTI: 14.7 cm Ao mean P.7 mmHg NEVIN(I,D): 1.9 cm2 Ao V2 VTI: 25.2 cm NEVIN(V,D): 1.7 cm2 sev ratio: 0.58 NEVIN indexed to BSA (cm^2/m^2): 0.94 MV E max aaron: 61.4 cm/sec PA V2 max: 133.7 cm/sec MV A max aaron: 79.1 cm/sec PA V2 mean: 86.3 cm/sec MV E/A: 0.78 PA mean P.2 mmHg Med Peak E' Aaron: 5.8 cm/sec PA pr(Accel): 53.3 mmHg E/E' med: 10.5 Lat Peak E' Aaron: 7.8 cm/sec E/E' lat: 7.9 E/e' average: 9.2 MV dec time: 0.24 sec SV(LVOT): 47.4 ml Reading Physician:05:12 PM
[2021-04-09] VITALS (87 sets, daily range): BP systolic 39–242; BP diastolic 24–151; PULSE 44–143; RESP 13–60; TEMP 36.4; O2SAT 71–99
--- NOTE | 2021-04-09 | DI.RAD.S_ITS ---
PROCEDURE: XR CHEST 1V INDICATIONS: Chest tube TECHNIQUE: One view of the chest was acquired. COMPARISON: [facility], CR, XR CHEST 1V, 04/09/2021, 3:51. FINDINGS: Interval placement of left basilar pigtail thoracostomy tube. Left-sided pneumothorax has significantly improved, now with a small basal lateral component and a small a pickle component. Previously seen mediastinal and tracheal shift has improved. Bilateral interstitial and airspace opacities are unchanged. Stable position of endotracheal and tube and left upper extremity PICC. IMPRESSION: Markedly improved but not entirely resolved left pneumothorax, now small. Resolution of previously seen tracheal and mediastinal shift. Remaining findings are stable. No significant change from preliminary report. Dictated by: Cam Adams M.D. on 04/09/2021 at 9:01 Approved by: Cam Adams M.D. on 04/09/2021 at 9:02
[2021-04-09 03:05] LABS: Fractionated Inspired Oxygen 100; HCO3 ABG 28 mmol/L (22-26); Oxygen Saturation ABG 92 % (95-100); PCO2 ABG 43.8 mmHg (35-45); PO2 ABG 64 mmHg (80-100); TCO2 ABG 29 mmol/L (21-31); pH ABG 7.41 (7.35-7.45)
--- NOTE | 2021-04-09 03:06 | RT ---
At 0230, paged by RN to help turn pt on her side. Placed 15 LPM NRB to pre-oxygenate pt before turning and pt is also maxed on HHFNC at 60 LPM and 100% FiO2 at this time. Pt desat to 85% and took approximately 30 minutes to get her SpO2 to 90%. SpO2 is still varying and desaturating to 87%. ABG performed on HHFNC 60 LPM, 100% FiO2, and 15 LPM NRB: pH 7.41, PaCO2 43.8, PaO2 64, HCO3 28, BE 3, SaO2 92%. Will consult Tele-ICU and LISETH Goncalves with results and plan of care for pt.
--- NOTE | 2021-04-09 03:10 | PC.NURSE ---
Addendum entered by Adelia Sibley R.N. 04/09/21 08:16: Harris Ruffin in to intubate patient at 0350. Patient pre-medicated for intubation by Dr. Iglesias.Precedex drip discontinued at onset of intubation. Intubated without incident and O2 saturations 88-92% with bagging. RT placement of patient on ventilator with FiO2 100%. RT adjusting vent to tele-ICU motor vehicle light assembler orders. Propofol and Fentanyl drips initiated. Patient starting to de-saturate on ventilator and bagged by RT. Dr. Pimentel consulted via live- interaction video. Patient had episode of bradycardia to the 40's and hypotension. Atropine and Epinephrine given. Norepinehrine drip initiated. Chest Xray was obtained and L tension pneumothorax detected. Midazolam drip initiated and Propofol discontinued. Dr. Correa from ED arrived to place L anterior chest tube. Chest tube placed without incident to 20 cm H20 suction. Patient's oxygen saturation with immediate improvement. Repeat chest xray completed. Norepinephrine drip titrated down to 15 mcg/min with resolution of hypotension and episode of rebound hypertension. Vasopressin initiated at 4.5 mls/hr per Dr. Pimentel. Patient HR 83, SR. BP 101/49. O2 sats remain at 93-94% on FiO2 of 100%, Rate 24,Peep 14, TV 330.Bedside Shift report given to Asia RIVAS. Original Note: Patient started on Precedex at 2330 at 0.2mcg/kg/hr after loading dose. Patient responding well to Precedex with O2 sats up to 92-94% on HHF FiO2 of 95%/60L. At 0200 Patient agreeable to turning to L side. RT present with addition of NRB for repositioning, in addition to the HHF. Patient remaining calm, however desats to 87% and very slow recovery to 89-90% on all oxygen modalities. Dr. Wolff, ICU tele-motor vehicle light assembler notified of patient inability to recover from repositioning. Discussed ABG results of pH 7.41, PCO2 43.8, PO2 64, HCO3 27.8. Patient's respiratory rate in the 20's. Dena CHAVEZ/Hospitalist notified of current discussion with Dr. Wolff regarding need to intubate patient. KATHY Goncalves in to see patient and to discuss patients wishes. Patient in SB/SR 50-60s. BP 107/58. Telemetry shows SB, First Degree AV Block, BBB.
--- NOTE | 2021-04-09 03:44 | PM.EICU.INT ---
Teleintensivist Intervention Date/Time Was camera activated?: Yes Date Patient Seen: 04/09/21 Time Patient Seen: 03:45 Issue(s) Addressed Issue(s): Resp. Distress/Ventilator management (Patient now requiring face mask and HFNC. ABG done by staff and result communicated to me. I recommended intubation and patient is amenable. Ventilator orders/analgosedation ordered. OMID Goncalves has asked anesthesiologist to intubate patient.)
--- NOTE | 2021-04-09 03:49 | DI.RAD.S_ITS ---
PROCEDURE: XR CHEST 1V INDICATIONS: Intubation TECHNIQUE: One view of the chest was acquired. COMPARISON: [facility], CR, XR CHEST 1V, 04/08/2021, 22:58. FINDINGS: Surgical changes and devices: Endotracheal tube terminates in appropriate position. Left upper extremity PICC terminates near midline. Lungs and pleura: Patchy increased airspace and interstitial opacities in both lungs. No pleural effusions or pneumothorax. Mediastinum: Mediastinal contours appear normal. Heart size is normal. Bones and chest wall: No suspicious bony lesions. Overlying soft tissues appear unremarkable. IMPRESSION: Appropriate position of endotracheal tube. Stable increased interstitial and airspace opacities in both lungs, likely infectious. Dictated by: Cam Adams M.D. on 04/09/2021 at 9:03 Approved by: Cam Adams M.D. on 04/09/2021 at 9:04
[2021-04-09] MEDS: fentaNYL 1,000 MCG in DEXTROSE 5% IN WATER 250 ML 17.294 ML IV (04:12)
[2021-04-09] MEDS: propofoL 1,000 MG/100 ML VIAL 2.745 MG IV (04:15)
--- NOTE | 2021-04-09 04:32 | PM.PROC.1 ---
Procedures Date/Time Date of procedure: 04/09/21 Time of procedure: 04:10 Intubation Time out performed: Yes Sedative: other (100mcg fentanyl, 2mg Versed, 120mg propofol) Paralytic: other (80mg succinylcholine, 50mg rocuronium once intubated) Laryngoscope: other (Optical stylet) ET tube size: 7.5 ET tube uncuffed: No Tube secured depth (cm): 23 Tube secured location: lips Tube placement confirmation: visualized tube passing through cords, equal breath sounds bilaterally, no breath sounds over epigastrium and confirmation by capnometry Patient tolerated procedure: well Intubation complications: none Additional comments: COVID positive, respiratory distress, pO2 64 on high flow NC, FIO2 100%, SpO2 mid to high 80s
[2021-04-09 05:33] LABS: Add Manual Diff / Slide Review NO; Basophils Absolute Auto 200 /uL (0-100); Basophils Percent Auto 1.3 % (0-2); Eosinophils Absolute Auto 0 /uL (0-450); Hematocrit 36.7 % (36-46); Lymphocytes Absolute Auto 3500 /uL (1100-4500); Lymphocytes Percent Auto 28.6 % (25-40); Mean Corpuscular HGB Conc 32.6 % (30-36); Mean Corpuscular Hemoglobin 29.6 PG (26-34); Mean Corpuscular Volume 90.7 fL (80-100); Monocytes Absolute Auto 700 /uL (0-900); Monocytes Percent Auto 5.5 % (3-14); Neutrophils Absolute Auto 8000 /uL (1500-7000); Neutrophils Percent Auto 64.6 % (50-75); Platelet Count 366 X10^3/uL (150-400); Red Blood Cell Count 4.05 X10^6/uL (4.0-5.2); Red Cell Distribution Width 14.7 % (11.6-14.8); White Blood Cell Count 12.4 X10^3/uL (4.5-11.0)
[2021-04-09 05:39] LABS: Alanine Aminotransferase 25 IU/L (<35); Albumin 3.6 g/dL (3.5-5.0); Alkaline Phosphatase 240 U/L (38-126); Aspartate Aminotransferase 45 IU/L (14-36); BUN Creatinine Ratio 38.6 (6-22); Bilirubin Total 0.4 mg/dL (0.2-1.3); Blood Urea Nitrogen 39 mg/dL (7-17); Calcium 10.9 mg/dL (8.4-10.2); Carbon Dioxide 27 mmol/L (22-32); Chloride 108 mmol/L (98-107); Estimated Glomerular Filt Rate 55.7 mL/min (>60); Globulin 3.7 g/dL (1.7-4.1); Glucose 141 mg/dL (80-110); Potassium 4.7 mmol/L (3.4-5.1); Sodium 141 mmol/L (137-145); Total Protein 7.3 g/dL (6.3-8.2)
[2021-04-09] MEDS: NOREPINEPHRINE 4 MG in DEXTROSE 5% IN WATER 250 ML 76.2 ML IV (05:40)
[2021-04-09 05:44] LABS: HEMOLYSIS 51 (0-50)
--- NOTE | 2021-04-09 05:46 | PM.EVENT ---
Event Note Event Note: Reassessed patient post intubation. Per RN report, she was started on propofol and fentanyl. SpO2 remains in the low 80s despite bagging with PEEP valve set at 18. Patient was sedated to RAVINDRA goal -5 and paralyzed with vecuronium 10 mg IV push. SpO2 improved to high 80s. Ppl 26 and PEEP increased to 15. Patient became hypotensive and levophed started at 20 mcg which quickly escalated to 30 mcg. Patient desaturated down to the 70s. PIP 49 and Ppl 43. Concern raise for tension pneumothorax given the rapid change in respiratory mechanics. Auscultation noted significant absent breath sounds left lung and difficult to assess tracheal deviation due to her body habitus. Stat CXR ordered and ER physician called for possible pneumothorax. Patient cece down to the 40s which atropine 1 mg and epinephrine 0.5 mg was given. HR improved to the 100s and SBP ~240s. CXR showed large left tension pneumothorax with mediastinal shift. Emergent chest tube placed by ER physician. SpO2 improved to 99%. Levophed restarted back at 15 mcg and added vasopressin. Repeat CXR showed left lung reexpansion with moderate pneumothorax size. Chest tube placed to suction -20 cmH20. Started on linezolid/levaquin. ABG and repeat CXR orderd for 1 hour. A/P: # Severe ARDS -- Secondary to COVID pneumonia complicated with barotrauma from severe lung inflammation -- On LPS and high PEEP -- On toxic level of FiO2 -- Currently sedated and paralyzed -- RASS goal -5 -- Will start proning per PROSEVA protocol (16h/8h) -- Started on linezolid/levaquin -- Check ABG -- Obtain respiratory culture -- PNTX management as below -- HOB elevation -- Aspiration precaution -- Goal SpO2 > 88% # Tension pneumothorax -- Secondary to COVID PNA w/ severe lung inflammation -- s/p Wing pigtail catheter placement with lung reexpansion -- Chest tube placed to suction -20 cm H20 -- Will minimize mean airway pressure by reducing inspiratory time and PEEP to maintain goal SpO2 > 88% -- Repeat CXR in 1 hour Patient is critically requiring active vent and pressor titration. Total critical care time spent 79 minutes.
[2021-04-09] MEDS: ATROPINE 1 MG/10 ML SYRINGE IV (06:15)
[2021-04-09] MEDS: EPINEPHrine 1 MG/10 ML SYRINGE 0.5 MG IV (06:25)
--- NOTE | 2021-04-09 06:26 | DI.RAD.S_ITS ---
PROCEDURE: XR CHEST 1V INDICATIONS: rule out pneumothorax TECHNIQUE: One view of the chest was acquired. COMPARISON: [facility], CR, XR CHEST 1V, 04/09/2021, 3:51. FINDINGS: Large left pneumothorax. Mild shift of the trachea and mediastinal structures to the right with depression of the left hemidiaphragm. Compressive atelectasis of the left lung. Left perihilar and basilar airspace opacities per cyst although are less conspicuous due to the degree of atelectasis. Airspace opacities in the right lung of not significantly changed from the prior study. Endotracheal tube terminates in appropriate position. The left upper extremity PICC terminates in the region of the innominate vein near midline. IMPRESSION: Large left tension pneumothorax. Preliminary report indicates that this finding was discussed with Gianna Moraes RN by Dr. Best Moreland on 04/09/2021 at 0658. Bilateral airspace opacities have not significantly changed. Left upper extremity PICC terminates near midline in the region of the innominate vein. Dictated by: Cam Adams M.D. on 04/09/2021 at 8:55 Approved by: Cam Adams M.D. on 04/09/2021 at 9:00
[2021-04-09] MEDS: MIDAZOLAM 50 MG in DEXTROSE 5% IN WATER 240 ML 10 ML IV (06:30)
--- NOTE | 2021-04-09 06:37 | P.PCN_ITS ---
Procedures Date/Time Date of procedure: 04/09/21 Time of procedure: 06:37 General Procedure description: 61-year-old woman admitted to the intensive care unit with COVID pneumonia, rapidly desaturating shortly after being intubated. Concern for pneumothorax. Was requested by telegraphic typewriter operator chief and hospitalist to assist with chest tube placement if needed. Chest x-ray shows large left-sided pneumothorax with tension physiology Continued increase in blood pressure and decreasing oxygen saturations Patient was intubated and sedated, additional sedation was not used Chest Tube Chest Tube Location: Lateral Chest (Left ant clavicular line, superior to Rib #6 ) Size of tube: 10 Chest tube procedure: Yes other Tube sutured to skin: Yes Sterile dressing applied: Yes Incision made with: #11 blade Post procedure: sutured to skin and sterile dressing applied Bryant of air heard: Yes Tube Drainage: fluid Amount of initial drainage (ml): 5 Post procedure CXR?: Yes Patient tolerated procedure well: Yes (immediate improvement in saturation and BP) Complications: other (lung not completely reinflated immediately. May be some tethering. Rec repeat CXR in 1-2 hours to re-eval) Progress: Care and procedure discussed in real time with Tele Delivery Truck Driver. Roberto Pneumothorax Set used.
[2021-04-09] MEDS: fentaNYL 1,000 MCG in DEXTROSE 5% IN WATER 230 ML 34.313 ML IV (06:54)
[2021-04-09] MEDS: VASOPRESSIN 40 UNIT in SODIUM CHLORIDE 0.9% 100 ML IV (06:55)
[2021-04-09 07:14] LABS: HCO3 ABG 29 mmol/L (22-26); Oxygen Saturation ABG 91 % (95-100); PCO2 ABG 50.4 mmHg (35-45); PO2 ABG 65 mmHg (80-100); TCO2 ABG 30 mmol/L (21-31)
[2021-04-09 07:15] LABS: Fractionated Inspired Oxygen 100; pH ABG 7.37 (7.35-7.45)
--- NOTE | 2021-04-09 07:30 | DI.RAD.S_ITS ---
PROCEDURE: XR CHEST 1V INDICATIONS: Pneumo ass TECHNIQUE: One view of the chest was acquired. COMPARISON: [facility], , XR CHEST 1V, 04/09/2021, 6:14. FINDINGS: Left basilar pigtail thoracostomy tube, left upper extremity PICC, and endotracheal tubes are in stable position. Further slight decrease in size of left pneumothorax, now small in the apically and laterally. Bilateral airspace opacities are similar. Normal heart size. IMPRESSION: Further slight decrease in size of left pneumothorax, now small. Dictated by: Cam Adams M.D. on 04/09/2021 at 9:04 Approved by: Cam Adams M.D. on 04/09/2021 at 9:05
--- NOTE | 2021-04-09 07:30 | RT ---
Pt intubated by Dr. Iglesias at 0410. Pt had multiple desat episodes which required BVM for 5-15 minutes at a time to increase SpO2. Pt was dysynchronous with ventilator and desat to 85% and sometimes in the low 80s. Sedation was increased, but pt's blood pressure decreased significantly. Pt's PIPs on ventilator suddenly increased from 30s to 45, and then to 50. Plateau pressures on ventilator steadily increased as well from mid 20s to 30s, and eventually 30s. Pt's color turned more dusky. Pt became tachycardic in the 130s-140s. Absent breath sounds L > R. CXR performed and showed L-sided PNX. L-sided chest tube placed by Dr. Correa. Pt's vitals improved. BS clear and slightly diminished still, HR stable, BP stable, PIP/Plateau pressure on vent stable.
--- NOTE | 2021-04-09 07:32 | PC.NURSE ---
0730- Attempted to call Son Jus and Naveed. Messages left x2 for both. First attempt was made prior to intubation and second attempt was made after patient was treated for the tension pneumothorax.
[2021-04-09 08:15] LABS: HCO3 ABG 26 mmol/L (22-26); Oxygen Saturation ABG 94 % (95-100); PCO2 ABG 68.3 mmHg (35-45); PO2 ABG 88 mmHg (80-100); TCO2 ABG 28 mmol/L (21-31)
[2021-04-09 08:16] LABS: Fractionated Inspired Oxygen 100; pH ABG 7.19 (7.35-7.45)
--- NOTE | 2021-04-09 09:12 | PM.PN.EICU ---
Subjective Subjective :: This patient was seen via real time interactive two-way audiovisual telecommunication. Steffany Jovel is a 61 year olf female with a medical history of hypertension, hyperlipidemia, [id number] type 2 diabetes, depression, anxiety, gout, and obesity that Dx with COVID 03/20/21 (pt fully vaccinated with Pfizer) and underwent monoclonal antibodies treatment 03/19/21. Pt. admitted 04/07/21 with acute hypoxic respiratory failure and B/L interstitial and alveolar infiltrates. Chest CT neg for PE. started on dexamethasone, baricitinib, and remdesivir and aggressively diuresed. She was placed on HFNC. Recent 24 hours: At around 3 am patient went into worsening hypoxic respiratory failure. She got intubatedv( R 24 VT 330 PEEP 14 Fio2 100%). Post intubation patient's BP dropped and CXR confirmed L tension Pneumothorax. L pigtail chest tube placed and Levophed and Vasopressin drip started. Pt. also started on Linezolid and Levaquin. ABG post intubation is 7.19/68/88. Pt. started on Vecuronium drip. Patient had an acute episode of hypotension and hypoxemia at around 8:30 am. When patient turned more towards R, BP and pox improved. the Repeat CXR showed there is no longe L tension pneumothorax but there is still some pneumomediatstinum and possible some residual small L pneumothorax. Pigtail appeared kinked so it was unkinked and rebandaged in place. Urine output low. Anesthesia placed art line and central line. Current Medications Current Medications Medications: Home Medications atorvastatin 10 mg tablet (Lipitor) 10 mg PO BEDTIME #0 02/24/12 [History Confirmed 05/09/18] clonidine HCl 0.1 mg tablet 0.1 mg PO QDAY #0 02/24/12 [History] hydrochlorothiazide 12.5 mg capsule 12.5 mg PO DAILY 05/09/18 [History Confirmed 05/09/18] lisinopril 40 mg tablet 40 mg PO DAILY 05/09/18 [History Confirmed 04/07/21] potassium chloride 10 mEq tablet,extended release 10 meq PO BID 05/09/18 [History Confirmed 05/09/18] sertraline 50 mg tablet 50 mg PO DAILY 05/09/18 [History Confirmed 04/07/21] albuterol sulfate 90 mcg/actuation aerosol inhaler 1 - 2 puff INHALATION Q6HR PRN 04/07/21 [History Confirmed 04/07/21] allopurinol 300 mg tablet 300 mg PO DAILY 04/07/21 [History Confirmed 04/07/21] glimepiride 2 mg tablet 2 mg PO DAILY 04/07/21 [History Confirmed 04/07/21] Visit Medications (administered) Generic Name Dose Route Start Last Admin Trade Name Freq PRN Reason Stop Dose Admin Acetaminophen 650 mg 04/07/21 19:47 04/08/21 03:42 Acetaminophen 325 Mg Tablet PO 650 mg Q6HR PRN Administration Fever/Mild Pain (1-3) Allopurinol 300 mg 04/08/21 09:00 04/08/21 08:57 Allopurinol 300 Mg Tablet PO 300 mg DAILY ZACKERY Administration Atorvastatin Calcium 10 mg 04/07/21 21:00 04/08/21 20:40 Atorvastatin 20 Mg Tablet PO 10 mg BEDTIME ZACKERY Administration Chlorhexidine Gluconate 15 ml 04/09/21 06:00 04/09/21 07:50 Chlorhexidine Gluconate 15 Ml Cup PO Not Given Q6HR ZACKERY Dexamethasone 6 mg 04/08/21 09:00 04/08/21 08:32 Dexamethasone 10 Mg/Ml Vial IV 6 mg DAILY ZACKERY Administration Enoxaparin Sodium 40 mg 04/08/21 09:00 04/08/21 20:39 Enoxaparin 40 Mg/0.4 Ml Syringe SUBCUT 40 mg Q12H ZACKERY Administration Furosemide 20 mg 04/08/21 10:00 04/08/21 12:10 Furosemide 20 Mg/2 Ml Vial IV 20 mg DAILY ZACKERY Administration Remdesivir 100 mg/ Sodium 250 mls @ 250 mls/hr 04/08/21 22:00 04/08/21 22:45 Chloride IV 04/16/21 22:59 Infused DAILY@2200 ZACKERY Infusion Propofol 1,000 mg in 100 mls @ 2.745 mls/hr 04/09/21 03:45 04/09/21 06:42 Propofol IV 0 mcg/kg/min TITRATE ZACKERY 0 mls/hr Titration Protocol 5 MCG/KG/MIN Midazolam HCl 50 mg/ Dextrose 250 mls @ 9.15 mls/hr 04/09/21 06:15 04/09/21 06:30 IV 0.02 mg/kg/hr TITRATE ZACKERY 10 mls/hr Administration Protocol 0.02 MG/KG/HR Vasopressin 40 unit/ Sodium 102 mls @ 4.5 mls/hr 04/09/21 06:45 04/09/21 06:55 Chloride IV 4.5 mls/hr CONT ZACKERY Administration Fentanyl 1,000 mcg/ Dextrose 250 mls @ 16.013 mls/hr 04/09/21 06:45 04/09/21 06:54 IV 1.5 mcg/kg/hr TITRATE ZACKERY 34.313 mls/hr Administration Protocol 0.7 MCG/KG/HR Norepinephrine Bitartrate 4 mg 254 mls @ 30.48 mls/hr 04/09/21 07:00 04/09/21 06:20 / Dextrose IV 15 mcg/min TITRATE ZACKERY 57.15 mls/hr Titration Protocol 8 MCG/MIN Insulin Human Lispro 0 unit 04/07/21 21:00 04/08/21 20:31 Insulin Lispro 100 Unit/Ml 3ml Vial SUBCUT Not Given ACHS [facility] Protocol Nystatin 1 applic 04/08/21 21:00 04/08/21 22:40 Nystatin Ointment 15 Applic/Tube Oint...G. TOP Not Given TID [facility] Objective Ventilator Parameters: Ventilator Settings FiO2 100 RT Vent Frequency 24 Ventilator Tidal Volume 330 Exhaled Positive End Expiratory 14 Pressure Inspiratory Phase Time 0.7 I:E Ratio 1:2.6 Patient Position HOB >= 30 degrees Labs Result Diagrams: 04/09/21 04:50 04/09/21 04:50 Labs: Laboratory Results - last 24 hr 04/08/21 04/09/21 04/09/21 09:15 02:54 04:50 WBC 12.4 H RBC 4.05 Hgb 12.0 Hct 36.7 MCV 90.7 MCH 29.6 MCHC 32.6 RDW 14.7 Plt Count 366 Neut % (Auto) 64.6 Lymph % (Auto) 28.6 [place] % (Auto) 5.5 Eos % (Auto) 0.0 L Baso % (Auto) 1.3 Neut # (Auto) 8000 H Lymph # (Auto) 3500 [place] # (Auto) 700 Eos # (Auto) 0 Baso # (Auto) 200 H ABG pH 7.41 ABG pCO2 43.8 ABG pO2 64 L ABG HCO3 28 H ABG Total CO2 29 ABG O2 Saturation 92 L ABG Base Excess 3.0 H FiO2 100 Sodium Potassium Chloride Carbon Dioxide BUN Creatinine Estimated GFR BUN/Creatinine Ratio Glucose Calcium Total Bilirubin AST ALT Alkaline Phosphatase Total Protein Albumin Globulin Albumin/Globulin Ratio Urine RBC None seen Urine WBC 0-1/hpf Amorphous Sediment 2+ Urine Bacteria None seen Ur Culture Indicated? Cult not indicated 04/09/21 04/09/21 04/09/21 04:50 05:13 08:03 WBC RBC Hgb Hct MCV MCH MCHC RDW Plt Count Neut % (Auto) Lymph % (Auto) [place] % (Auto) Eos % (Auto) Baso % (Auto) Neut # (Auto) Lymph # (Auto) [place] # (Auto) Eos # (Auto) Baso # (Auto) ABG pH 7.37 7.19 L* ABG pCO2 50.4 H 68.3 H* ABG pO2 65 L 88 ABG HCO3 29 H 26 ABG Total CO2 30 28 ABG O2 Saturation 91 L 94 L ABG Base Excess 3.0 H -2.0 FiO2 100 100 Sodium 141 Potassium 4.7 Chloride 108 H Carbon Dioxide 27 BUN 39 H Creatinine 1.01 Estimated GFR 55.7 L BUN/Creatinine Ratio 38.6 H Glucose 141 H Calcium 10.9 H Total Bilirubin 0.4 AST 45 H ALT 25 Alkaline Phosphatase 240 H Total Protein 7.3 Albumin 3.6 Globulin 3.7 Albumin/Globulin Ratio 1.0 Urine RBC Urine WBC Amorphous Sediment Urine Bacteria Ur Culture Indicated? Exam Vital Signs (past 8 hours): - 04/09/21 01:15 04/09/21 01:30 04/09/21 01:45 Temperature Pulse Rate 54 L 51 L 50 L Respiratory Rate 22 21 21 Blood Pressure Pulse Oximetry 94 96 92 04/09/21 02:00 04/09/21 02:15 04/09/21 02:24 Temperature Pulse Rate 51 L 50 L 57 L Respiratory Rate 26 H 20 24 Blood Pressure 107/58 L Pulse Oximetry 94 92 92 04/09/21 02:30 04/09/21 02:45 04/09/21 03:00 Temperature 97.6 F Pulse Rate 67 50 L 50 L Respiratory Rate 32 H 21 22 Blood Pressure 107/58 L Pulse Oximetry 89 L 91 92 04/09/21 03:12 04/09/21 03:15 04/09/21 03:30 Temperature Pulse Rate 49 L 49 L 60 Respiratory Rate 22 22 22 Blood Pressure 107/58 L Pulse Oximetry 91 92 91 04/09/21 03:45 04/09/21 04:00 04/09/21 04:03 Temperature Pulse Rate 48 L 48 L 47 L Respiratory Rate 24 20 21 Blood Pressure 89/50 L Pulse Oximetry 92 92 92 04/09/21 04:05 04/09/21 04:10 04/09/21 04:14 Temperature Pulse Rate 52 L 54 L 63 Respiratory Rate 22 24 24 Blood Pressure 98/66 100/60 Pulse Oximetry 92 90 L 04/09/21 04:15 04/09/21 04:29 04/09/21 04:30 Temperature Pulse Rate 67 54 L 55 L Respiratory Rate 21 24 24 Blood Pressure 87/53 L Pulse Oximetry 90 L 90 L 90 L 04/09/21 04:35 04/09/21 04:45 04/09/21 04:46 Temperature Pulse Rate 57 L 69 69 Respiratory Rate 24 26 H 24 Blood Pressure 97/60 114/73 Pulse Oximetry 92 95 95 04/09/21 04:50 04/09/21 05:00 04/09/21 05:10 Temperature Pulse Rate 76 78 63 Respiratory Rate 47 H 29 H 29 H Blood Pressure 139/83 125/80 97/57 L Pulse Oximetry 95 94 91 04/09/21 05:15 04/09/21 05:21 04/09/21 05:30 Temperature Pulse Rate 62 75 61 Respiratory Rate 30 H 51 H 38 H Blood Pressure 125/77 Pulse Oximetry 90 L 89 L 89 L 04/09/21 05:31 04/09/21 05:41 04/09/21 05:45 Temperature Pulse Rate 57 L 45 L 44 L Respiratory Rate 60 H 23 18 Blood Pressure 104/55 L 59/30 L Pulse Oximetry 89 L 78 L 80 L 04/09/21 05:48 04/09/21 05:59 04/09/21 06:00 Temperature Pulse Rate 51 L 90 87 Respiratory Rate 17 13 14 Blood Pressure 39/24 L 130/67 Pulse Oximetry 71 L 87 L 87 L 04/09/21 06:02 04/09/21 06:15 04/09/21 06:16 Temperature Pulse Rate 74 122 H 140 H Respiratory Rate 24 18 16 Blood Pressure 123/76 146/105 H Pulse Oximetry 90 L 74 L 79 L 12/12/21 06:19 04/09/21 06:22 04/09/21 06:26 Temperature Pulse Rate 143 H 136 H 115 H Respiratory Rate 22 24 33 H Blood Pressure 242/151 H 237/110 H 154/70 H Pulse Oximetry 90 L 79 L 99 04/09/21 06:30 04/09/21 06:32 04/09/21 06:37 Temperature Pulse Rate 92 H 83 83 Respiratory Rate 24 24 24 Blood Pressure 84/35 L 101/49 L Pulse Oximetry 96 92 92 04/09/21 06:45 04/09/21 07:00 04/09/21 07:05 Temperature Pulse Rate 87 88 87 Respiratory Rate 24 24 24 Blood Pressure Pulse Oximetry 94 94 93 04/09/21 07:10 04/09/21 07:15 04/09/21 07:20 Temperature Pulse Rate 87 88 88 Respiratory Rate 24 24 24 Blood Pressure Pulse Oximetry 93 93 93 04/09/21 07:25 04/09/21 07:30 04/09/21 07:35 Temperature Pulse Rate 89 90 90 Respiratory Rate 24 24 24 Blood Pressure Pulse Oximetry 93 93 93 04/09/21 07:40 04/09/21 07:45 04/09/21 07:50 Temperature Pulse Rate 99 H 107 H 110 H Respiratory Rate 24 24 24 Blood Pressure Pulse Oximetry 94 94 93 04/09/21 08:00 04/09/21 08:15 04/09/21 08:20 Temperature Pulse Rate 110 H 101 H 98 H Respiratory Rate 24 24 24 Blood Pressure 77/45 L Pulse Oximetry 91 91 88 L 04/09/21 08:29 04/09/21 08:30 04/09/21 08:33 Temperature Pulse Rate 87 86 84 Respiratory Rate 48 H 46 H 48 H Blood Pressure 167/83 H 169/84 H Pulse Oximetry 92 92 92 04/09/21 08:43 04/09/21 08:45 Temperature Pulse Rate 85 86 Respiratory Rate 48 H 48 H Blood Pressure 152/69 H Pulse Oximetry 91 91 Fraction of Inspired Oxygen 100 Oxygen Delivery Method High Flow Nasal Cannula,Non -Rebreather Oxygen Flow Rate 65 Quality TeleICU VTE Deep Vein Thrombosis/Pulmonary Embolism Present on Admission: No Assessment & Plan Assessment & Plan narrative: Assessment Acute hypoxic and Hypcapnic Respiratory failure ARDS COVID PNA Septic Shock DM Low urine output Plan -continue Decadron, Baricitinib, and Remdesivir -increase RR from 24 to 28 -check ABG and adjust vent as needed -titrate Vecuonium drip for TRAIN of 2/4 titrate versed and fentanyl drip to patient comfort -start Bicarb drip 150 mEq in 1L at 75 cc/hr to allow for permissive hypcapnia -continue vasopressin and Levophed drip and titrate for MAP of 65-75 -continue Linezolid and Levaquin and will add Flagyl for anaerobic coverage as well in case of aspiration (pt. has rash allergy to PCN) -patient will be transferred to higher level of care hospital for proning and inhaled Flolan or Nitric Oxide PPx: famotidine and Leovenox 40 mg BID CCT spent 120 min Time Spent With Patient Critical Care time: I spent a total of [] minutes of critical care time on this patient's care today; this time is exclusive of procedural time.
[2021-04-09] MEDS: VECURONIUM 20 MG in SODIUM CHLORIDE 0.9% 100 ML 27.45 ML IV (09:23)
[2021-04-09] MEDS: SODIUM BICARB 8.4% VIAL 150 MEQ in DEXTROSE 5% WATER 1,000 ML 75 MEQ IV (09:32)
--- NOTE | 2021-04-09 10:04 | DI.RAD.S_ITS ---
PROCEDURE: XR CHEST 1V INDICATIONS: chest tube to water seal TECHNIQUE: One view of the chest was acquired. COMPARISON: [facility], , XR CHEST 1V, 04/09/2021, 7:30. FINDINGS: Surgical changes and devices: Left chest tube is present, as before. A new right internal jugular vein central venous catheter is present, tip of which projects over the mid SVC. Remaining tubes and catheters are in stable in expected positions. Lungs and pleura: Moderate right greater than left diffuse bilateral pulmonary opacity is present, as before. No pleural effusions. There is a slight increase in the left pneumothorax which is now small to moderate. Mediastinum: Mediastinal contours appear normal. Heart size is normal. Bones and chest wall: No suspicious bony lesions. Overlying soft tissues appear unremarkable. IMPRESSION: 1. Slight increase in left pneumothorax. 2. No change in right greater than left pneumonia. Dictated by: Donnell Mullen M.D. on 04/09/2021 at 9:33 Approved by: Donnell Mullen M.D. on 04/09/2021 at 9:34
[2021-04-09] MEDS: NOREPINEPHRINE 4 MG in DEXTROSE 5% IN WATER 250 ML 57.15 ML IV (10:20)
--- NOTE | 2021-04-09 10:21 | PM.PROC.1 ---
Procedures Date/Time Date of procedure: 04/09/21 Time of procedure: 09:20 Central Line Placement Time out performed: Yes Patient placed on monitor/pulse ox: Yes MD prep: mask, gown and gloves Central line prep: Chlorhexidine scrub and sterile drapes applied Local anesthesia used: other anesthetic (patient intubated and sedated) Ultrasound used for placement: Yes Central line lumen inserted: triple (catheter threaded to 16cm at skin) Post procedure: sutured in place, good blood return, all ports aspirated, flushed, capped and sterile dressing applied Post procedure x-ray: other (X-ray ordered) Patient tolerated procedure: well and no complications Complications: none Additional comments:
--- NOTE | 2021-04-09 10:22 | PM.DS.1 ---
History of Present Illness History of Present Illness Date Patient Seen: 04/09/21 Chief complaint: difficulty breathing Narrative: Steffany Jovel is a 61 year old female with a medical history of hypertension, hyperlipidemia, [id number] type 2 diabetes, depression, anxiety, gout, and obesity who presented to the ED in acute hypoxic respiratory distress following increasing shortness of breath over the previous 72 hours.? Patient reports that she tested positive for COVID pneumonia on approximately 03/20/2021 patient was experiencing abdominal pain nausea vomiting and diarrhea.? The patient has been fully vaccinated for COVID with Dot.? Patient underwent treatment with monoclonal antibodies on March 21, 2021.? Her symptoms had slightly improved her did test positive on 03/25/2021 but has remained asymptomatic.? Approximately 72 hours ago the patient began having increasing shortness of breath cough decreased appetite no further vomiting or abdominal pain.? Patient had a negative COVID antigen and PCR test in ED. upon admit patient is feeling short of breath and slightly anxious, mild cough nonproductive. Patient denies chest pain, headache, changes in vision, swelling of extremities, loss of taste loss of smell, fever, body aches, chills, nausea, vomiting, diarrhea, recent trauma or injury.? Patient denies any cardiac or respiratory history.? Patient works in the school district. Patient originally presented to the ED with a temp of 98.5?, BP 197/93, HR 97, RR 33-43, O2 saturations on room air 70%.? Patient was placed on nasal cannula oxygen demand quickly escalated,? upon admit patient's blood pressure remains elevated 169/75, HR 82, RR 33, heated high-flow 60 L of 50% with an O2 saturation of 92%.? Patients CXR demonstrated patchy bilateral interstitial infiltrates are seen, with superimposed more confluent alveolar type infiltrates, which are consistent with the known clinical history of COVID pneumonia.? ABGs pH 7.50, pCO2 30.2, PO2 60, HC03 24, TCO2 25, O2 sat 93%, BE 1, FiO2 50.? Patient's wbc's 13.2, neutrophils 9600, platelets 430.? Chemistries WNL,? glucose 135, alk-phos 3O2, A1c 7.0%, procalcitonin WNL, lactate D 805, ESR 54, CRP 14, troponin WNL. Patients EKG demonstrated normal sinus rhythm, rate 97 with left ventricular hypertrophy with repolarization abnormality ( R in aVL).? BNP 414, D-dimer 720 (elevated for age adjust).? Patient's CTA demonstrated No PE, patchy bilateral interstitial and airspace opacities which are likely infectious and would be consistent with the provided history of COVID-19. 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 Patient admitted for acute hypoxic respiratory alkalosis failure unknown etiology possible secondary to COVID pneumonia versus community-acquired pneumonia. Discharge Providers Provider Date of admission: 04/07/21 19:39 Discharge Date: 04/09/21 Primary care physician: Valeria Bob PA-C Consults: 04/07/21 19:53 Consult to Dietitian, Adult Routine Comment: Reason For Exam: Obesity 04/07/21 20:01 Consult to Respiratory Therapy Evaluate & Treat Comment: Acute resp failure Physician Instructions: Evaluate and treat 04/07/21 20:08 Consult to Tele-diagnostic medical sonographer Routine Comment: Consulting Provider: Sae Tele-intensivists Reason for consultation: [employer] services Has provider been notified: No 04/07/21 23:54 Consult to Dietitian, Adult Routine Comment: Reason For Exam: obesity 04/08/21 20:25 Consult After Hours PICC Line RN NOW Comment: 04/09/21 03:29 Consult to Anesthesiology Routine Comment: Consulting Provider: Anesthesiologist Reason for consultation: Intubation Has provider been notified: Yes 04/09/21 03:39 Consult to Dietitian, Adult Routine Comment: Reason For Exam: Patient on Ventilator and NPO Discharge provider: Brittany Pena MD Summary Hospital Course Discharge Diagnosis: 1. Acute hypoxic respiratory failure secondary to COVID pneumonia 2. Tension pneumothorax, status post chest tube placement 3. Essential hypertension 4. Hyperlipidemia 5. Type 2 diabetes 6. Gout 7. Obesity 8. Hyperlipidemia Hospital Course: Patient was admitted to the hospital with acute respiratory failure secondary to COVID pneumonia. She was treated with remdesivir, Decadron, and baricitinib. Patient was initially on high-flow oxygen. She had progressively worsening of her hypoxemia such that the patient required intubation. Following intubation, the patient became markedly hypoxic despite 18 of PEEP, she desaturated, she was also noted to be hypotensive. Chest x-ray confirmed a moderate size pneumothorax. Chest tube was placed and the patient was started on linezolid and Levaquin. In addition to 15 a Peep. She continued to be hypotensive, she was requiring Levophed and vasopressin. The patient had a chest x-ray that showed pneumomediastinum and a possible small residual left pneumothorax. Anesthesia placed an art line and central line. The patient remained on FiO2 of 100% patient was difficult to ventilate despite being paralyzed, given her hypotension, difficult to ventilate, persistent pneumothorax, and generalized condition arrangements were made to transfer her to [facility] for higher level care. Dr. Riggins from General surgery kindly agreed to replace her pigtail chest tube with a larger tube. After consultation with the patient's who gave permission arrangements were made to transfer her to [facility] for ongoing care. Exam Vital Signs (past 8 hours): - 04/09/21 02:24 04/09/21 02:30 04/09/21 02:45 Temperature Pulse Rate 57 L 67 50 L Respiratory Rate 24 32 H 21 Blood Pressure 107/58 L Pulse Oximetry 92 89 L 91 04/09/21 03:00 04/09/21 03:12 04/09/21 03:15 Temperature 97.6 F Pulse Rate 50 L 49 L 49 L Respiratory Rate 22 22 22 Blood Pressure 107/58 L 107/58 L Pulse Oximetry 92 91 92 04/09/21 03:30 04/09/21 03:45 04/09/21 04:00 Temperature Pulse Rate 60 48 L 48 L Respiratory Rate 22 24 20 Blood Pressure Pulse Oximetry 91 92 92 04/09/21 04:03 04/09/21 04:05 04/09/21 04:10 Temperature Pulse Rate 47 L 52 L 54 L Respiratory Rate 21 22 24 Blood Pressure 89/50 L 98/66 100/60 Pulse Oximetry 92 92 90 L 04/09/21 04:14 04/09/21 04:15 04/09/21 04:29 Temperature Pulse Rate 63 67 54 L Respiratory Rate 24 21 24 Blood Pressure 87/53 L Pulse Oximetry 90 L 90 L 04/09/21 04:30 04/09/21 04:35 04/09/21 04:45 Temperature Pulse Rate 55 L 57 L 69 Respiratory Rate 24 24 26 H Blood Pressure 97/60 Pulse Oximetry 90 L 92 95 04/09/21 04:46 04/09/21 04:50 04/09/21 05:00 Temperature Pulse Rate 69 76 78 Respiratory Rate 24 47 H 29 H Blood Pressure 114/73 139/83 125/80 Pulse Oximetry 95 95 94 04/09/21 05:10 04/09/21 05:15 04/09/21 05:21 Temperature Pulse Rate 63 62 75 Respiratory Rate 29 H 30 H 51 H Blood Pressure 97/57 L 125/77 Pulse Oximetry 91 90 L 89 L 04/09/21 05:30 04/09/21 05:31 04/09/21 05:41 Temperature Pulse Rate 61 57 L 45 L Respiratory Rate 38 H 60 H 23 Blood Pressure 104/55 L 59/30 L Pulse Oximetry 89 L 89 L 78 L 04/09/21 05:45 04/09/21 05:48 04/09/21 05:59 Temperature Pulse Rate 44 L 51 L 90 Respiratory Rate 18 17 13 Blood Pressure 39/24 L 130/67 Pulse Oximetry 80 L 71 L 87 L 04/09/21 06:00 04/09/21 06:02 04/09/21 06:15 Temperature Pulse Rate 87 74 122 H Respiratory Rate 14 24 18 Blood Pressure 123/76 Pulse Oximetry 87 L 90 L 74 L 04/09/21 06:16 04/09/21 06:19 04/09/21 06:22 Temperature Pulse Rate 140 H 143 H 136 H Respiratory Rate 16 22 24 Blood Pressure 146/105 H 242/151 H 237/110 H Pulse Oximetry 79 L 90 L 79 L 04/09/21 06:26 04/09/21 06:30 04/09/21 06:32 Temperature Pulse Rate 115 H 92 H 83 Respiratory Rate 33 H 24 24 Blood Pressure 154/70 H 84/35 L Pulse Oximetry 99 96 92 04/09/21 06:37 04/09/21 06:45 04/09/21 07:00 Temperature Pulse Rate 83 87 88 Respiratory Rate 24 24 24 Blood Pressure 101/49 L Pulse Oximetry 92 94 94 04/09/21 07:05 04/09/21 07:10 04/09/21 07:15 Temperature Pulse Rate 87 87 88 Respiratory Rate 24 24 24 Blood Pressure Pulse Oximetry 93 93 93 04/09/21 07:20 04/09/21 07:25 04/09/21 07:30 Temperature Pulse Rate 88 89 90 Respiratory Rate 24 24 24 Blood Pressure Pulse Oximetry 93 93 93 04/09/21 07:35 04/09/21 07:40 04/09/21 07:45 Temperature Pulse Rate 90 99 H 107 H Respiratory Rate 24 24 24 Blood Pressure Pulse Oximetry 93 94 94 04/09/21 07:50 04/09/21 08:00 04/09/21 08:15 Temperature Pulse Rate 110 H 110 H 101 H Respiratory Rate 24 24 24 Blood Pressure Pulse Oximetry 93 91 91 04/09/21 08:20 04/09/21 08:29 04/09/21 08:30 Temperature Pulse Rate 98 H 87 86 Respiratory Rate 24 48 H 46 H Blood Pressure 77/45 L 167/83 H Pulse Oximetry 88 L 92 92 04/09/21 08:33 04/09/21 08:43 04/09/21 08:45 Temperature Pulse Rate 84 85 86 Respiratory Rate 48 H 48 H 48 H Blood Pressure 169/84 H 152/69 H Pulse Oximetry 92 91 91 Fraction of Inspired Oxygen 100 Oxygen Delivery Method High Flow Nasal Cannula,Non -Rebreather Oxygen Flow Rate 65 Narrative Exam Narrative: Ill-appearing female lying in bed sedated and unresponsive Const Other: ET tube in place, Kimball catheter in place, central line in place Resp Other: Lungs decreased breath sounds bilaterally with occasional scattered crackles Cardio Other: Cardiac exam: Regular rate and rhythm normal S1-S2 Other: Kimball catheter in place Skin Other: No lesion Neuro Other: Sedated Extrem Other: No edema Objective Labs Result Diagrams: 04/09/21 04:50 04/09/21 04:50 Labs: Laboratory Results - last 24 hr 04/08/21 04/09/21 04/09/21 09:15 02:54 04:50 WBC 12.4 H RBC 4.05 Hgb 12.0 Hct 36.7 MCV 90.7 MCH 29.6 MCHC 32.6 RDW 14.7 Plt Count 366 Neut % (Auto) 64.6 Lymph % (Auto) 28.6 Jenkins % (Auto) 5.5 Eos % (Auto) 0.0 L Baso % (Auto) 1.3 Neut # (Auto) 8000 H Lymph # (Auto) 3500 Jenkins # (Auto) 700 Eos # (Auto) 0 Baso # (Auto) 200 H ABG pH 7.41 ABG pCO2 43.8 ABG pO2 64 L ABG HCO3 28 H ABG Total CO2 29 ABG O2 Saturation 92 L ABG Base Excess 3.0 H FiO2 100 Sodium Potassium Chloride Carbon Dioxide BUN Creatinine Estimated GFR BUN/Creatinine Ratio Glucose Calcium Total Bilirubin AST ALT Alkaline Phosphatase Total Protein Albumin Globulin Albumin/Globulin Ratio Urine RBC None seen Urine WBC 0-1/hpf Amorphous Sediment 2+ Urine Bacteria None seen Ur Culture Indicated? Cult not indicated 04/09/21 04/09/21 04/09/21 04:50 05:13 08:03 WBC RBC Hgb Hct MCV MCH MCHC RDW Plt Count Neut % (Auto) Lymph % (Auto) Jenkins % (Auto) Eos % (Auto) Baso % (Auto) Neut # (Auto) Lymph # (Auto) Jenkins # (Auto) Eos # (Auto) Baso # (Auto) ABG pH 7.37 7.19 L* ABG pCO2 50.4 H 68.3 H* ABG pO2 65 L 88 ABG HCO3 29 H 26 ABG Total CO2 30 28 ABG O2 Saturation 91 L 94 L ABG Base Excess 3.0 H -2.0 FiO2 100 100 Sodium 141 Potassium 4.7 Chloride 108 H Carbon Dioxide 27 BUN 39 H Creatinine 1.01 Estimated GFR 55.7 L BUN/Creatinine Ratio 38.6 H Glucose 141 H Calcium 10.9 H Total Bilirubin 0.4 AST 45 H ALT 25 Alkaline Phosphatase 240 H Total Protein 7.3 Albumin 3.6 Globulin 3.7 Albumin/Globulin Ratio 1.0 Urine RBC Urine WBC Amorphous Sediment Urine Bacteria Ur Culture Indicated? [facility] Medical History Depression Diabetes Essential hypertension Gout History of colon cancer HTN (hypertension) Hyperlipidemia Non-insulin dependent type 2 diabetes mellitus Obesity (BMI 30-39.9) Surgical History Status post partial resection of colon Status post surgery (03/21/10) Family History Mother Cancer Father COPD (chronic obstructive pulmonary disease) Social History household members: spouse Smoking Status: Never smoker Discharge Assessment & Plan Assessment and Plan Assessment: 1. Acute respiratory failure secondary to COVID pneumonia 2. Tension pneumothorax, chest tube in place, functionally well 3. Probable bacterial superinfection 4. Type 2 diabetes 5. Hypertension 6. Hyperlipidemia 7. Gout 8. Obesity Plan of Treatment: Transfer to [facility] for higher level care Discharge Plan Discharge Plan Disposition: [facility] Discharge orders & Medications Follow up/Referrals: Valeria Bob PA-C [Primary Care Provider] - Discharge Health Status Multidrug resistant organism: No MDRO Precautions: Droplet and Airborne Diet/Activity/Treatments Diet: Tube Feeding Discharge Data Primary Care Provider: Valeria Bob Quality VTE Deep Vein Thrombosis/Pulmonary Embolism Present on Admission: No
--- NOTE | 2021-04-09 10:22 | RT ---
vent checked, et tube secure and bag mask unit with peep valve on. Abg drawn and results called to Dr. Sinha Tele-ICU Apprentice Painter Hand. Vent plugged into red outlet. Pt desat to 87% on current settings. Pt rolled to right side and sao2 increased to 92%.
--- NOTE | 2021-04-09 10:26 | PM.PROC.1 ---
Procedures Date/Time Date of procedure: 04/09/21 Time of procedure: 01:00 Arterial Line Time out performed: Yes Size (Gauge): 20 Technique used: guide wire technique Post-Procedure: dry sterile dressing placed Patient tolerated procedure: Well Complications: other (Attempt on left radial artery failed, applied pressure dressing) Site: right and radial Additional comments: Ultrasound guidance used for first pass attempt on right radial artery. Good pulsatile waveform transduced.
--- NOTE | 2021-04-09 10:31 | RT ---
RR increased to [address] Sinha re abg results.
[2021-04-09] MEDS: SODIUM BICARB 8.4% SYRINGE 50 MEQ IV (10:41)
[2021-04-09 11:02] LABS: HCO3 ABG 29 mmol/L (22-26); PCO2 ABG 62.2 mmHg (35-45); PO2 ABG 80 mmHg (80-100); TCO2 ABG 31 mmol/L (21-31)
[2021-04-09 11:03] LABS: Fractionated Inspired Oxygen 100; Oxygen Saturation ABG 94 % (95-100); pH ABG 7.28 (7.35-7.45)
--- NOTE | 2021-04-09 11:10 | PM.CN ---
History of Present Illness Consult details Date Patient Seen: 04/09/21 Time Patient Seen: 11:10 Chief complaint: difficulty breathing Reason for consult: right PTX Requesting provider: Brittany Pena Narrative: Called regarding a Covid +, pneumonia with spontaneous right PTX. CT place by ED but hypoxia and PTX persisted. Patient in shock and intubated. Meds Home Medications and Allergies Home Medications Medication Instructions Recorded Confirmed Type atorvastatin 10 mg tablet (Lipitor) 10 mg PO BEDTIME #0 02/24/12 05/09/18 History clonidine HCl 0.1 mg tablet 0.1 mg PO QDAY #0 02/24/12 History hydrochlorothiazide 12.5 mg capsule 12.5 mg PO DAILY 05/09/18 05/09/18 History lisinopril 40 mg tablet 40 mg PO DAILY 05/09/18 04/07/21 History potassium chloride 10 mEq 10 meq PO BID 05/09/18 05/09/18 History tablet,extended release sertraline 50 mg tablet 50 mg PO DAILY 05/09/18 04/07/21 History albuterol sulfate 90 mcg/actuation 1 - 2 puff INHALATION Q6HR PRN 04/07/21 04/07/21 History aerosol inhaler allopurinol 300 mg tablet 300 mg PO DAILY 04/07/21 04/07/21 History glimepiride 2 mg tablet 2 mg PO DAILY 04/07/21 04/07/21 History Allergies Allergy/AdvReac Type Severity Reaction Status Date / Time Penicillins Allergy Mild RASH Verified 04/07/21 17:46 Sulfa (Sulfonamide Allergy Mild RASH Verified 04/07/21 17:46 Antibiotics) Review of Systems Review of Systems ROS: Yes unobtainable due to endotracheal tube Exam Vital Signs (past 8 hours): - 04/09/21 03:12 04/09/21 03:15 04/09/21 03:30 Pulse Rate 49 L 49 L 60 Respiratory Rate 22 22 22 Blood Pressure 107/58 L Pulse Oximetry 91 92 91 04/09/21 03:45 04/09/21 04:00 04/09/21 04:03 Pulse Rate 48 L 48 L 47 L Respiratory Rate 24 20 21 Blood Pressure 89/50 L Pulse Oximetry 92 92 92 04/09/21 04:05 04/09/21 04:10 04/09/21 04:14 Pulse Rate 52 L 54 L 63 Respiratory Rate 22 24 24 Blood Pressure 98/66 100/60 Pulse Oximetry 92 90 L 04/09/21 04:15 04/09/21 04:29 04/09/21 04:30 Pulse Rate 67 54 L 55 L Respiratory Rate 21 24 24 Blood Pressure 87/53 L Pulse Oximetry 90 L 90 L 90 L 04/09/21 04:35 04/09/21 04:45 04/09/21 04:46 Pulse Rate 57 L 69 69 Respiratory Rate 24 26 H 24 Blood Pressure 97/60 114/73 Pulse Oximetry 92 95 95 04/09/21 04:50 04/09/21 05:00 04/09/21 05:10 Pulse Rate 76 78 63 Respiratory Rate 47 H 29 H 29 H Blood Pressure 139/83 125/80 97/57 L Pulse Oximetry 95 94 91 04/09/21 05:15 04/09/21 05:21 04/09/21 05:30 Pulse Rate 62 75 61 Respiratory Rate 30 H 51 H 38 H Blood Pressure 125/77 Pulse Oximetry 90 L 89 L 89 L 04/09/21 05:31 04/09/21 05:41 04/09/21 05:45 Pulse Rate 57 L 45 L 44 L Respiratory Rate 60 H 23 18 Blood Pressure 104/55 L 59/30 L Pulse Oximetry 89 L 78 L 80 L 04/09/21 05:48 04/09/21 05:59 04/09/21 06:00 Pulse Rate 51 L 90 87 Respiratory Rate 17 13 14 Blood Pressure 39/24 L 130/67 Pulse Oximetry 71 L 87 L 87 L 04/09/21 06:02 04/09/21 06:15 04/09/21 06:16 Pulse Rate 74 122 H 140 H Respiratory Rate 24 18 16 Blood Pressure 123/76 146/105 H Pulse Oximetry 90 L 74 L 79 L 04/09/21 06:19 04/09/21 06:22 04/09/21 06:26 Pulse Rate 143 H 136 H 115 H Respiratory Rate 22 24 33 H Blood Pressure 242/151 H 237/110 H 154/70 H Pulse Oximetry 90 L 79 L 99 04/09/21 06:30 04/09/21 06:32 04/09/21 06:37 Pulse Rate 92 H 83 83 Respiratory Rate 24 24 24 Blood Pressure 84/35 L 101/49 L Pulse Oximetry 96 92 92 04/09/21 06:45 04/09/21 07:00 04/09/21 07:05 Pulse Rate 87 88 87 Respiratory Rate 24 24 24 Blood Pressure Pulse Oximetry 94 94 93 04/09/21 07:10 04/09/21 07:15 04/09/21 07:20 Pulse Rate 87 88 88 Respiratory Rate 24 24 24 Blood Pressure Pulse Oximetry 93 93 93 04/09/21 07:25 04/09/21 07:30 04/09/21 07:35 Pulse Rate 89 90 90 Respiratory Rate 24 24 24 Blood Pressure Pulse Oximetry 93 93 93 04/09/21 07:40 04/09/21 07:45 04/09/21 07:50 Pulse Rate 99 H 107 H 110 H Respiratory Rate 24 24 24 Blood Pressure Pulse Oximetry 94 94 93 04/09/21 08:00 04/09/21 08:15 04/09/21 08:20 Pulse Rate 110 H 101 H 98 H Respiratory Rate 24 24 24 Blood Pressure 77/45 L Pulse Oximetry 91 91 88 L 04/09/21 08:29 04/09/21 08:30 04/09/21 08:33 Pulse Rate 87 86 84 Respiratory Rate 48 H 46 H 48 H Blood Pressure 167/83 H 169/84 H Pulse Oximetry 92 92 92 04/09/21 08:43 04/09/21 08:45 Pulse Rate 85 86 Respiratory Rate 48 H 48 H Blood Pressure 152/69 H Pulse Oximetry 91 91 Fraction of Inspired Oxygen 100 Oxygen Delivery Method High Flow Nasal Cannula,Non -Rebreather Oxygen Flow Rate 65 Narrative Exam Narrative: Intubated, sedated. obese decreased BS on Right chest. Course BS on left Objective Labs Result Diagrams: 04/09/21 04:50 04/09/21 04:50 Labs: Laboratory Results - last 24 hr 04/08/21 04/09/21 04/09/21 09:15 02:54 04:50 WBC 12.4 H RBC 4.05 Hgb 12.0 Hct 36.7 MCV 90.7 MCH 29.6 MCHC 32.6 RDW 14.7 Plt Count 366 Neut % (Auto) 64.6 Lymph % (Auto) 28.6 Waldo % (Auto) 5.5 Eos % (Auto) 0.0 L Baso % (Auto) 1.3 Neut # (Auto) 8000 H Lymph # (Auto) 3500 Waldo # (Auto) 700 Eos # (Auto) 0 Baso # (Auto) 200 H ABG pH 7.41 ABG pCO2 43.8 ABG pO2 64 L ABG HCO3 28 H ABG Total CO2 29 ABG O2 Saturation 92 L ABG Base Excess 3.0 H FiO2 100 Sodium Potassium Chloride Carbon Dioxide BUN Creatinine Estimated GFR BUN/Creatinine Ratio Glucose Calcium Total Bilirubin AST ALT Alkaline Phosphatase Total Protein Albumin Globulin Albumin/Globulin Ratio Urine RBC None seen Urine WBC 0-1/hpf Amorphous Sediment 2+ Urine Bacteria None seen Ur Culture Indicated? Cult not indicated 04/09/21 04/09/21 04/09/21 04:50 05:13 08:03 WBC RBC Hgb Hct MCV MCH MCHC RDW Plt Count Neut % (Auto) Lymph % (Auto) Waldo % (Auto) Eos % (Auto) Baso % (Auto) Neut # (Auto) Lymph # (Auto) Waldo # (Auto) Eos # (Auto) Baso # (Auto) ABG pH 7.37 7.19 L* ABG pCO2 50.4 H 68.3 H* ABG pO2 65 L 88 ABG HCO3 29 H 26 ABG Total CO2 30 28 ABG O2 Saturation 91 L 94 L ABG Base Excess 3.0 H -2.0 FiO2 100 100 Sodium 141 Potassium 4.7 Chloride 108 H Carbon Dioxide 27 BUN 39 H Creatinine 1.01 Estimated GFR 55.7 L BUN/Creatinine Ratio 38.6 H Glucose 141 H Calcium 10.9 H Total Bilirubin 0.4 AST 45 H ALT 25 Alkaline Phosphatase 240 H Total Protein 7.3 Albumin 3.6 Globulin 3.7 Albumin/Globulin Ratio 1.0 Urine RBC Urine WBC Amorphous Sediment Urine Bacteria Ur Culture Indicated? 04/09/21 10:54 WBC RBC Hgb Hct MCV MCH MCHC RDW Plt Count Neut % (Auto) Lymph % (Auto) Waldo % (Auto) Eos % (Auto) Baso % (Auto) Neut # (Auto) Lymph # (Auto) Waldo # (Auto) Eos # (Auto) Baso # (Auto) ABG pH 7.28 L* ABG pCO2 62.2 H* ABG pO2 80 ABG HCO3 29 H ABG Total CO2 31 ABG O2 Saturation 94 L ABG Base Excess 2.0 FiO2 100 Sodium Potassium Chloride Carbon Dioxide BUN Creatinine Estimated GFR BUN/Creatinine Ratio Glucose Calcium Total Bilirubin AST ALT Alkaline Phosphatase Total Protein Albumin Globulin Albumin/Globulin Ratio Urine RBC Urine WBC Amorphous Sediment Urine Bacteria Ur Culture Indicated? [facility] Medical History Depression Diabetes Essential hypertension Gout History of colon cancer HTN (hypertension) Hyperlipidemia Non-insulin dependent type 2 diabetes mellitus Obesity (BMI 30-39.9) Surgical History Status post partial resection of colon Status post surgery (03/21/10) Family History Mother Cancer Father COPD (chronic obstructive pulmonary disease) Social History household members: spouse Tobacco & Substance Use Smoking Status: Never smoker Assessment & Plan Assessment & Plan narrative: CT tube manipulated by ED doc with marked improvement of PTX and decreased hypoxia. CXR showing small apical and lateral PTX at 0730. Repeat CXR shows slight increase in PTX, but all relative to external chest tube kinking. Once external port of CT was unkinked and taped aggressively to the abdominal wall, oxygenation improved markedly. Plan: Patient is getting airlift to [facility]. This chest tube is appropriate now for transfer. COVID-19 COVID-19 status: Positive Time Spent With Patient Time with patient: 30 to 49 minutes with 50% spent counseling/coordinating care Critical Care time: I spent a total of [] minutes of critical care time on this patient's care today; this time is exclusive of procedural time.
--- NOTE | 2021-04-09 13:03 | RT ---
vent checked, abg done and bag mask unit at hob with peep value. Results of abg given to Dr. Sinha Meteorological Observer. Et tube secure and re abg results MD Sinha requests to increase rr to 30 and Peep to 16
--- NOTE | 2021-04-09 13:07 | RT ---
adjustments made to vent with rr to 30 and peep to 16. MD Sinha on Tele ICU re abg results. After 5 min peep turned back down to [address] Sinha. Pt ricardo well, sao2@93%
--- NOTE | 2021-04-09 14:35 | PC.NURSE ---
Addendum entered by Tere Pacheco R.N. 04/27/21 11:56: Restraints discontinued with addition of vecuronium gtt, train of four 0/4, Dr. Sinha stated ok for 0/4 train of four for transport with Life flight. Original Note: Dayshift note: Report received from Adelia, patient BP dropped entered room and called tele-ICU Dr Shoemaker, new orders in emar, Dr Iglesias at bedside to place central line and Art line. Dr Riggins at bedside to check chest tube placement, fixed kink in line and re-taped tubing. RT at bedside adjustments to Vent settings made per Dr Shoemaker. Current gtts are Vecuronium, Nor-epi, vasopressin, Bi-Carb, Versed, and Fentanyl (see emar for documentation). Report given to Air flight nurses, assisted Air flight to load patient into helicopter. Report called to Carl at [facility] ICU 339. No further pt contact at this time
== END 2021-04-09 12:00 | disposition short-term general hospital (02) | DRG 208 ==
LOC: ED 18:02 → ICU 04-08 08:19 → AC 04-10 08:23
PROVIDERS: Internal Medicine; Internal Medicine Pulmonary Disease; Admitting Provider Nurse Practitioner Family; Emergency Provider Emergency Medicine; PCP Physician Assistant Medical; Referring Provider Emergency Medicine; Visit Provider Nurse Practitioner Family
DX: U07.1 COVID-19 (principal); J12.82 Pneumonia due to coronavirus disease 2019; J93.0 Spontaneous tension pneumothorax; R65.21 Severe sepsis with septic shock; J80 Acute respiratory distress syndrome; A41.9 Sepsis, unspecified organism; E66.9 Obesity, unspecified; Z68.36 Body mass index [BMI] 36.0-36.9, adult; B96.89 Other specified bacterial agents as the cause of diseases classified elsewhere; E78.5 Hyperlipidemia, unspecified; E11.65 Type 2 diabetes mellitus with hyperglycemia; F32.A Depression, unspecified; F41.9 Anxiety disorder, unspecified; M1A.9XX0 Chronic gout, unspecified, without tophus (tophi); I10 Essential (primary) hypertension; I95.9 Hypotension, unspecified; Z79.84 Long term (current) use of oral hypoglycemic drugs
CPT/HCPCS: 36415; 36569; 36600; 71045; 71275; 80053; 81015; 82550; 82728; 82805; 82962; 83036; 83605; 83615; 83735; 83880; 84145; 84484; 85025; 85379; 85610; 85651; 85730; 86140; 87040; 87070; 87205; 87633; 87635; 87797; 93005; 93010; 93306; 94002; 94003; 94799; 96361; 96365; 96375; 99285; 99291; C9803; J0171; J0330; J0461; J1100; J1644; J1650; J1815; J1940; J1956; J2250; J2704; J3010; Q9967

== ENCOUNTER → 2023-01-02 | Outpatient (CLI) | payer OTHER, SELFPAY ==
[2021-04-07 19:48] VITALS: BMI 36.7
[2021-04-09 10:55] VITALS: PULSE 82; RESP 28; O2SAT 95
--- NOTE | 2023-01-02 | DI.MG.S_ITS ---
BILATERAL DIGITAL SCREENING MAMMOGRAM 3D/2D WITH CAD: 01/02/2023 CLINICAL: Routine screening. Family history of breast cancer. Default Baseline exam. Comparison is made to exams dated: 03/01/2017 mammogram, 02/29/2016 mammogram, and 12/28/2014 mammogram - [facility]. There are scattered areas of fibroglandular density in both breasts (category b / 25%-50% glandular tissue). Current study was also evaluated with a Computer Aided Detection (CAD) system. There is a biopsy clip in the left breast. No significant masses, calcifications, or other findings are seen in either breast. There has been no significant interval change. IMPRESSION: NEGATIVE There is no mammographic evidence of malignancy. A 1 year screening mammogram is recommended. Based on the Tyrer Cuzick model (a risk assessment model) the patient's lifetime risk is 12.2% and her 10 year risk is 5.3%. According to the ACR, ACS, and NCCN guidelines, an annual breast MRI exam along with mammogram is recommended if the patient's lifetime risk is 20% or greater. This exam was interpreted at Station ID: [id number]. NOTE: For mammograms, a report in lay terms will be sent to the patient. Approximately 15% of breast malignancies will not be visualized mammographically. In the management of a palpable breast mass, a negative mammogram must not discourage biopsy of a clinically suspicious lesion. Electronically Signed By: Brannon rosen/flako:01/06/2023 14:21:13 letter sent: Normal Exam ACR BI-RADS Category 1: Negative 3341F
== END ==
PROVIDERS: PCP Physician Assistant Medical; Referring Provider Physician Assistant Medical; Visit Provider Physician Assistant Medical
DX: Z12.31 Encounter for screening mammogram for malignant neoplasm of breast (principal)
CPT/HCPCS: 77063; 77067

== ENCOUNTER 2023-02-13 09:18 | Day surgery (SDC) | payer OTHER, SELFPAY ==
[2021-04-07 19:48] VITALS: BMI 36.7
[2021-04-09 10:55] VITALS: PULSE 82; RESP 28; O2SAT 95
--- NOTE | 2023-02-13 | PATH_ITS ---
[facility] Accession Number: [id number] No. of containers..01 Tissue . 01 Material submitted: . colon - DESCENDING POLYP . 01 Diagnosis: Descending Colon Polyp: Tubular adenoma. MRV 02/15/2023 1406 Local . 01 Electronically signed: . Jesús Sena MD, PhD, Pathologist NPI- [id number] . 01 Gross description: . DESCENDING POLYP: Received in formalin is multiple fragment(s) of morris, soft tissue measuring 1.0 x 0.5 x 0.3 cm in aggregate submitted entirely in 1 cassette(s) /AAY 02/14/2023 0408 Local . 01 Pathologist provided ICD-10: D12.4 . 01 CPT . 446635 Specimen Comment: A courtesy copy of this report has been sent to [phone] Performed at: 01 [facility] [address] [place] [address], [place], [place] [id number] MD Nic Souza MD Phone: [phone]
[2023-02-13 09:50] VITALS: BMI 37.5
[2023-02-13 09:58] VITALS: BP 148/80; PULSE 93; RESP 16; TEMP 36.4; O2SAT 99
[2023-02-13] MEDS: LACTATED RINGERS 1,000 ML 42 ML IV (10:02)
--- NOTE | 2023-02-13 10:38 | P.HP_ITS ---
History of Present Illness History of Present Illness Date Patient Seen: 02/13/23 Time Patient Seen: 10:38 Chief complaint: Colonoscopy Narrative: Steffany is a 63-year-old woman who had a colon cancer removed with Dr. Thompson several years ago. It was in her sigmoid colon. She has had few colonoscopies since then. [facility] Medical History (Updated 02/13/23 @ 10:39 by Naveed Lucero MD) Non-insulin dependent type 2 diabetes mellitus Essential hypertension Obesity (BMI 30-39.9) History of colon cancer Depression Gout HTN (hypertension) Hyperlipidemia Diabetes Surgical History Status post partial resection of colon Status post surgery (03/21/10) Family History Mother Cancer Father COPD (chronic obstructive pulmonary disease) Social History household members: spouse Smoking Status: Never smoker Meds Home Medications and Allergies Home Medications Medication Instructions Recorded Confirmed Type lisinopril 40 mg tablet 40 mg PO DAILY 05/09/18 02/13/23 History sertraline 50 mg tablet 50 mg PO DAILY 05/09/18 02/13/23 History albuterol sulfate 90 mcg/actuation 1 - 2 puff inhalation Q6HR PRN 04/07/21 02/13/23 History aerosol inhaler cough, shortness of breath glimepiride 2 mg tablet 2 mg PO BID 04/07/21 02/13/23 History cholecalciferol (vitamin D3) 25 50 mcg PO DAILY 02/13/23 02/13/23 History mcg (1,000 unit) tablet (Vitamin D3) dulaglutide 0.75 mg/0.5 mL 0.75 mg SUBCUT QWEEK 02/13/23 02/13/23 History subcutaneous pen injector (Trulicity) famotidine 20 mg tablet (Pepcid AC) 20 mg PO DAILY PRN Heartburn 02/13/23 02/13/23 History rosuvastatin 40 mg tablet 40 mg PO DAILY 02/13/23 02/13/23 History Allergies Allergy/AdvReac Type Severity Reaction Status Date / Time Penicillins Allergy Mild RASH Verified 02/13/23 09:44 Sulfa (Sulfonamide Allergy Mild RASH Verified 02/13/23 09:44 Antibiotics) Exam Vital Signs (past 8 hours): - 02/13/23 09:58 Temperature 97.5 F L Pulse Rate 93 H Respiratory Rate 16 Blood Pressure 148/80 H Pulse Oximetry 99 Oxygen Delivery Method Room Air Oxygen Delivery Method Room Air Const Orientation: alert and awake Other: Obese Assessment & Plan Assessment and plan (1) History of colon cancer: Status: Acute Plan We reviewed the risks and benefits of colonoscopy and she would like to proceed
--- NOTE | 2023-02-13 11:14 | PM.OP.COLON ---
Operative Date/Time/Diagnoses Date of procedure: 02/13/23 Time of procedure: 11:14 Pre-op diagnosis: History of colon cancer Post-op diagnosis: same Procedure & Clinicians Study performed: Colonoscopy Same procedure as scheduled: Yes Surgeon: Naveed Lucero Procedure Notes Procedure in detail: Surgeon: Naveed Lucero MD Anesthesia: Miriam Hoffmann DO Procedure: The patient was brought to the endoscopy suite, placed in left lateral decubitus position. The patient was connected to monitoring devices. A time-out was performed. Sedation was administered. Once the patient was adequately sedated, a digital rectal exam was performed and was normal. The scope was then inserted and advanced to the cecum where the appendiceal orifice was identified and photographed. The scope was then slowly withdrawn over greater than 6 minutes. The mucosa was thoroughly inspected. There was a 7 mm polyp in the descending colon removed with a cold snare. The anastomosis was intact and blind pouch was seen and no abnormalities were noted. The scope was retroflexed in the rectum. No other abnormalities were seen. The scope was straightened and removed. The patient was awakened and brought to recovery. Scope withdrawal time: 11 minutes Sedation time: 22 minutes EBL: 2 mL Findings: 7 mm polyp in the descending colon Post-procedure Disposition: PACU
[2023-02-13 11:17] VITALS: BP 105/61; PULSE 81; RESP 14; TEMP 36.2; O2SAT 93
[2023-02-13 11:22] VITALS: BP 111/70; PULSE 86; RESP 11; O2SAT 97
[2023-02-13 11:27] VITALS: BP 101/64; PULSE 85; RESP 11; O2SAT 95
[2023-02-13 11:32] VITALS: BP 104/64; PULSE 85; RESP 14; TEMP 36.1; O2SAT 97
[2023-02-13 11:36] VITALS: BP 98/56; PULSE 85; RESP 14; TEMP 36.1; O2SAT 96
== END 2023-02-13 11:43 | disposition home or self-care (01) ==
PROVIDERS: Surgery; PCP Physician Assistant Medical; Referring Provider Surgery; Visit Provider Surgery
PROC: 0DJD8ZZ Inspection of Lower Intestinal Tract, Via Natural or Artificial Opening Endoscopic (ICD-10-PCS; CPT 45378; principal; 2023-02-13 10:30)
DX: Z12.11 Encounter for screening for malignant neoplasm of colon (principal); Z85.038 Personal history of other malignant neoplasm of large intestine; E11.9 Type 2 diabetes mellitus without complications; Z79.84 Long term (current) use of oral hypoglycemic drugs; I10 Essential (primary) hypertension; D12.4 Benign neoplasm of descending colon
CPT/HCPCS: 45385; J2405; J2704

== ENCOUNTER → 2024-07-01 14:07 | Outpatient (CLI) | payer OTHER, SELFPAY ==
[2021-04-07 19:48] VITALS: BMI 36.7
[2021-04-09 10:55] VITALS: PULSE 82; RESP 28; O2SAT 95
--- NOTE | 2024-07-01 14:08 | DI.MG.S_ITS ---
MM screening mammo BI: 07/01/2024. BI-RADS: 2 CLINICAL: 64-year old female for bilateral screening mammogram. Tyrer-Cuzick lifetime risk of 10.9%. Current reported family history of breast cancer: maternal grandmother and mother. PRIOR EXAMS 01/02/2023, 03/01/2017, 02/29/2016, 07/21/2015, 01/19/2015, 01/14/2015, 12/28/2014. MAMMOGRAPHY TECHNIQUE: 2D and 3D (tomosynthesis) digital mammographic views obtained, with additional images as needed for full coverage. Current study was also evaluated with a Computer Aided Detection (CAD) system. DENSITY B. There are scattered areas of fibroglandular density. MAMMOGRAPHY FINDINGS Bilateral: Benign-appearing calcifications noted. No suspicious finding with benign findings noted. IMPRESSION: * No evidence of malignancy with benign findings. RECOMMENDATIONS Bilateral * Annual screening mammography. OVERALL ASSESSMENT CATEGORY BI-RADS-2: Benign. The [employer] recommends annual screening mammography beginning at age 40 for women with average risk of breast cancer. ELECTRONICALLY SIGNED: Shun Zhu M.D. on 07/01/2024 at 02:48:14 PM Interpreting Station ID: [id number]
== END ==
PROVIDERS: PCP Physician Assistant Medical; Referring Provider Physician Assistant Medical; Visit Provider Physician Assistant Medical
DX: Z12.31 Encounter for screening mammogram for malignant neoplasm of breast (principal); Z80.3 Family history of malignant neoplasm of breast
CPT/HCPCS: 77063; 77067